=== PATIENT | male | born 1935 | race Caucasian/White ===

== ENCOUNTER 2019-09-25 08:27 | Emergency (ER) | payer MEDICARE, SELFPAY ==
[2019-09-25 08:34] VITALS: BP 130/75; PULSE 96; RESP 15; TEMP 36.6; O2SAT 95
--- NOTE | 2019-09-25 08:40 | ED.WOUNDLAC ---
HPI - Wound/Laceration General Chief Complaint: Wound/Laceration <John Flynn PA-C - Last Filed: 09/25/19 08:42> Stated Complaint: Needle broke off in Buttock <John Flynn PA-C - Last Filed: 09/25/19 08:42> Time Seen by Provider: 09/25/19 08:29 <John Flynn PA-C - Last Filed: 09/25/19 08:42> Source: patient and family <John Flynn PA-C - Last Filed: 09/25/19 08:42> Mode of arrival: ambulatory <John Flynn PA-C - Last Filed: 09/25/19 08:42> Limitations: no limitations <John Flynn PA-C - Last Filed: 09/25/19 08:42> History of Present Illness HPI narrative: Patient is an 84-year-old male who presents to emergency department for evaluation of concern for possible needle being broke off injected his medication this morning the left buttock and noticed that the needle was gone patient did not realize it was a retractable needle which is new for him patient denies any pain or other complaints and on arrival is resting comfortably in the room in no distress presented with a syringe <John Flynn PA-C - Last Filed: 09/25/19 08:42> Related Data Allergies/Adverse Reactions: Allergies Allergy/AdvReac Type Severity Reaction Status Date / Time Penicillins Allergy Intermediate sweating Verified 09/25/19 08:37 Sulfa (Sulfonamide AdvReac Severe throat Verified 09/25/19 08:37 Antibiotics) swelling <John Flynn PA-C - Last Filed: 09/25/19 08:42> Review of Systems Review of Systems: Narrative: CONSTITUTIONAL: Denies fever, chills, or sweats. SKIN: Denies redness or swelling MUSCULOSKELETAL: Denies myalgia <John Flynn PA-C - Last Filed: 09/25/19 08:42> FOR[facility], LAT[facility] Past Medical History Medical History: Medical History Bladder cancer <John Flynn PA-C - Last Filed: 09/25/19 08:42> Surgical History Surgical History: Surgical History Cornea replaced by transplant H/O shoulder replacement r shoulder replacement History of back surgery History of cataract surgery History of knee replacement <John Flynn PA-C - Last Filed: 09/25/19 08:42> Family History Family History: Family History (Updated 02/24/16 @ 14:22 by DOCTOR UNKNOWN) Father Family history of kidney disease Other Family history of cardiovascular disease <John Flynn PA-C - Last Filed: 09/25/19 08:42> Social History Social History: Social History Smoking status: Former smoker Second hand tobacco smoke exposure: No Smoking end date: 08/22/94 Alcohol intake: never Gender identity (if verbalized by the patient): Male <John Flynn PA-C - Last Filed: 09/25/19 08:42> Exam Narrative: Exam Narrative: GENERAL: Well-appearing, well-nourished, and in no acute distress. HEAD: Normocephalic, atraumatic. EYES: PERRLA and EOMI. ENT: Nares clear, no rhinorrhea or epistaxis. Mucous membranes moist. EXTREMITIES: Normal range of motion. No edema. SKIN: Warm, dry, no rash. NEURO: No focal deficits. Alert and oriented x3. PSYCH: Normal mood and affect. <MICHAEL Arreguin Last Filed: 09/25/19 08:42> Course Course Emergency Course: Patient in the room in no distress aware of case findings treatment plan and diagnosis <John Flynn PA-C - Last Filed: 09/25/19 08:42> Vital Signs Vital signs: Vital Signs Temperature 36.6 C 09/25/19 08:34 Pulse Rate 96 09/25/19 08:34 Respiratory Rate 15 09/25/19 08:34 Blood Pressure 130/75 09/25/19 08:34 Pulse Oximetry 95 09/25/19 08:34 Temperature 36.6 C 09/25/19 08:34 Pulse Rate 96 09/25/19 08:34 Respiratory Rate 15 09/25/19 08:34 Blood Pressure 130/75 09/25/19 08:34 Pulse Oximetry 95 09/25/19 08:34 <John Flynn PA-C - Last Filed: 09/25/19 08:42>
== END 2019-09-25 08:53 | disposition home or self-care (01) ==
LOC: ANHED 08:47
PROVIDERS: Emergency Provider Emergency Medicine; PCP Internal Medicine
DX: Z03.89 Encounter for observation for other suspected diseases and conditions ruled out (principal)
CPT/HCPCS: 99281

== ENCOUNTER 2019-12-31 08:45 | Emergency (ER) | payer MEDICARE, SELFPAY ==
[2019-12-31] VITALS (8 sets, daily range): BP systolic 115–132; BP diastolic 73–77; PULSE 70–90; RESP 12–15; TEMP 36.6; O2SAT 99–100
--- NOTE | ~2019-12-31 | CT_ITS ---
EXAMINATION: CT brain wo con DATE: 12/31/2019 10:03 INDICATION: Dizziness. Syncope. TECHNIQUE: Computed tomography (CT) of the head was performed without intravenous contrast. The mA wa s adjusted according to patient size. Iterative reconstruction technique was employed. The dose-lengt h product was 605.33 mGy-cm. COMPARISON: Head CT 07/15/2018 FINDINGS: There is chronic encephalomalacia at the anteroinferior aspect of right frontal lobe. There is no intracranial hemorrhage, acute infarction, or abnormal intracranial mass lesion. The ventricle s are normal in size. There are likely changes of ocular lens replacement surgeries. The mastoid air cells are normal. The paranasal sinuses are clear. IMPRESSION: 1. Chronic encephalomalacia at the anteroinferior aspect of right frontal lobe. Reviewed, dictated and finalized at location A.
--- NOTE | 2019-12-31 08:57 | ECG_ITS ---
Measurements Intervals [place] Rate: 92 P: 27 MI: 164 QRS: 76 QRSD: 101 T: -2 QT: 331 QTc: 411 Interpretive Statements SINUS RHYTHM BORDERLINE ST-T WAVE ABNORMALITY- INFERIOR LEADS BASELINE WANDER- V4 BORDERLINE ECG Electronically Signed On 12-31-2019 9:43:34 CDT by Camilo Zambrano D.O.
[2019-12-31 09:04] LABS: Basophils Absolute Auto 0.1 K/mm3 (0.0-0.1); Basophils Percent Auto 0.6 % (0.2-1.2); Eosinophils Absolute Auto 0.2 K/mm3 (0-0.3); Eosinophils Percent Auto 1.4 % (0-4.4); Hematocrit 52.9 % (42.0-52.0); Hemoglobin 18.2 g/dL (14.0-18.0); Immature Granulocyte Absolute 0.06 K/mm3 (0.00-0.031); Immature Granulocyte Percent A 0.5 % (0-0.5); Lymphocytes Absolute Auto 5.98 K/mm3 (0.9-3.2); Lymphocytes Percent Auto 51.9 % (18.3-44.2); Mean Corpuscular HGB Conc 34.4 g/dl (32-36); Mean Corpuscular Hemoglobin 33.6 pg (26-34); Mean Corpuscular Volume 97.8 fl (80-100); Monocytes Absolute Auto 1.1 K/mm3 (0.1-0.6); Monocytes Percent Auto 9.1 % (2.6-8.5); Neutrophils Absolute Auto 4.2 K/mm3 (1.3-6.7); Neutrophils Percent Auto 36.5 % (45.5-73.1); Platelet Count Result 154 k/mm3 (150-375); Red Blood Count 5.41 M/mm3 (4.6-6.20); Red Cell Distribution Width 13.3 % (11.5-14.5); White Blood Count 11.5 K/mm3 (4.5-10.0)
[2019-12-31 09:16] LABS: Blood Urea Nitrogen 13 mg/dL (9-20); Calcium 9.1 mg/dL (8.4-10.2); Carbon Dioxide 30 mmol/L (22-30); Chloride 100 mmol/L (98-107); Estimated CRCL calculation 47 ml/min; Estimated Glomerular Filt Rate > 60; Glucose 110 mg/dL (75-110); Potassium 4.1 mmol/L (3.4-5.0); Sodium 135 mmol/L (137-145)
--- NOTE | 2019-12-31 09:45 | ED.SYNCOPE ---
HPI - Syncope General Chief Complaint: Syncope Stated Complaint: lightheaded Time Seen by Provider: 12/31/19 08:58 History of Present Illness HPI narrative: Patient presents with his for a falling out episode this morning in the greenhouse. He was raising his arms up to water the plants up high, when he felt like he was drunk, and his knees buckled under him. He fell into some plants, but did not lose consciousness. He has no injuries. His was not present at the time. This is been happening several times in a month. He seen his Dr. Cummings, without coming to a conclusion. He also says he feels like this when he first sits up in bed in the morning. He is retired and does not smoke drink or do drugs. 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 Recently his blood pressure medicine was cut in half, without improvement in his symptoms. MD complaint: felt faint and collapsed Onset (ago): hour(s) -: second(s) Prodromal symptoms: other ([place] drunk) Witnessed: No Context: during exertion Injuries sustained associated with event: none Current symptoms: none History: previous syncopal episode Treatments prior to arrival: none Related Data Home Medications Medication Instructions Recorded Confirmed testosterone cypionate 200 mg/mL 100 mg IM .q2w ml 11/19/19 12/05/19 intramuscular oil ferrous sulfate 12/31/19 lorazepam PRN 12/31/19 spironolactone 12/31/19 Allergies Allergy/AdvReac Type Severity Reaction Status Date / Time Penicillins Allergy Intermediate sweating Verified 12/05/19 14:33 Sulfa (Sulfonamide AdvReac Severe throat Verified 12/05/19 14:33 Antibiotics) swelling Review of Systems Review of Systems: Narrative: CONSTITUTIONAL: Denies fever, chills, or sweats. EYES: Denies visual changes, redness, or discharge. He has cataract replacement in both eyes and is partially blind in the right. ENT: Denies rhinorrhea, congestion, sore throat, or otalgia. CARDIOVASCULAR: Denies chest pain, palpitations, or edema. RESPIRATORY: Denies cough or dyspnea. GASTROINTESTINAL: Denies abdominal pain, nausea, vomiting, or diarrhea. GENITOURINARY: Denies dysuria or hematuria. SKIN: Denies rash or itching. MUSCULOSKELETAL: Denies back pain, joint pain, or myalgia. He has some soreness on the right side of his neck sometimes. NEUROLOGIC: Denies headache, numbness, or weakness. PSYCHIATRIC: Denies anxiety or depression. PMFSH Surgical History Surgical History Cornea replaced by transplant H/O shoulder replacement r shoulder replacement History of back surgery History of cataract surgery History of knee replacement Family History Family History (Updated 02/24/16 @ 14:22 by DOCTOR UNKNOWN) Father Family history of kidney disease Other Family history of cardiovascular disease Social History Social History Smoking status: Former smoker Second hand tobacco smoke exposure: No Smoking end date: 08/22/94 Alcohol intake: never Gender identity (if verbalized by the patient): Male Exam Narrative: Exam Narrative: GENERAL: Well-appearing, well-nourished, and in no acute distress. Truncal obesity, short stature. HEAD: Normocephalic, atraumatic. EYES: PERRLA Right eye closes intermittently, and deviates laterally. ENT: Nares clear, no rhinorrhea or epistaxis. Mucous membranes moist. NECK: Supple. No tenderness on either side of the neck, or masses. CHEST: Clear to auscultation. No respiratory distress. HEART: Regular rate and rhythm. No murmur heard. Normal peripheral pulses. ABDOMEN: Soft, nontender, nondistended, normal active bowel sounds. EXTREMITIES: Normal range of motion. No edema. SKIN: Warm, dry, no rash. NEURO: No focal deficits. Alert and oriented x3. PSYCH: Normal mood and affect. Const: General: no acute distress and alert Orientation/consciousness: pa
[2019-12-31] MEDS: SODIUM CHLORIDE 0.9% IV 1,000 ML 999 ML IV CONT (10:08)
[2019-12-31 10:18] LABS: NT Pro B Type Natriuretic Pept 132 PG/ML (5-100)
[2019-12-31 11:25] LABS: Hematocrit 49.2 % (42.0-52.0); Hemoglobin 16.8 g/dL (14.0-18.0)
== END 2019-12-31 14:05 | disposition home or self-care (01) ==
PROVIDERS: Emergency Provider Emergency Medicine; PCP Internal Medicine
DX: D75.1 Secondary polycythemia (principal); G93.89 Other specified disorders of brain; E86.0 Dehydration; Z94.7 Corneal transplant status; Z96.611 Presence of right artificial shoulder joint; Z98.49 Cataract extraction status, unspecified eye; Z96.659 Presence of unspecified artificial knee joint; Z87.891 Personal history of nicotine dependence
CPT/HCPCS: 36415; 70450; 80048; 83880; 85014; 85018; 85025; 93005; 96360; 99284; J7030

== ENCOUNTER 2022-03-12 12:28 | Emergency (ER) | payer MEDICARE, SELFPAY ==
[2022-03-12 12:43] VITALS: BP 134/84; PULSE 94; RESP 18; TEMP 37; O2SAT 97
--- NOTE | 2022-03-12 12:53 | ED.SKABFB ---
HPI - Skin/Abscess/Foreign Bdy General Chief complaint: Skin/Abscess/Foreign Body Stated complaint: rash Time Seen by Provider: 03/12/22 12:53 Source: patient, RN notes reviewed and old records reviewed Mode of arrival: ambulatory Limitations: no limitations History of Present Illness HPI narrative: 86-year-old male presents to the [facility] with complaints of a rash. Patient states he has been following up with his primary care provider and has been treated for fungal infections for the last 7 weeks. reports increased redness to the dorsal aspect of the foot that travels up the leg that has been getting worse over the last week. +1 pedal pulse. Delayed capillary refill. States the rash started about 7 weeks ago. Had tried seeing dermatology and primary care provider. Onset (ago): week(s) (7/ worse 1 week ) Related Data Home Medications Medication Instructions Recorded Confirmed testosterone cypionate 200 mg/mL 100 mg IM .q2w 11/19/19 03/12/22 intramuscular oil prednisolone acetate 1 % eye 1 drop ophthalmic (eye) Q12H 01/21/20 03/12/22 drops,suspension (Pred Forte) lifitegrast 5 % eye drops in a 1 drop ophthalmic (eye) BID 02/13/20 03/12/22 dropperette (Xiidra) cholecalciferol (vitamin D3) 125 125 mcg PO DAILY 04/14/20 03/12/22 mcg (5,000 unit) capsule albuterol sulfate 2.5 mg/3 mL 2.5 mg DIRECTED 03/12/22 03/12/22 (0.083 %) solution for nebulization albuterol sulfate 90 mcg/actuation 90 mcg inhalation DIRECTED 03/12/22 03/12/22 aerosol inhaler budesonide 160 mcg-glycopyr 9 2 inh inhalation BID 03/12/22 03/12/22 mcg-formot 4.8 mcg/actuation HFA inhaler (Breztri Aerosphere) fluconazole 200 mg tablet 200 mg BID 03/12/22 03/12/22 fluticasone 250 mcg-salmeterol 50 1 inh inhalation Q12H 03/12/22 03/12/22 mcg/dose blistr powdr for inhalation (Advair Diskus) omeprazole 40 mg capsule,delayed 40 mg PO DAILY 03/12/22 03/12/22 release Allergies Allergy/AdvReac Type Severity Reaction Status Date / Time Penicillins Allergy Intermediate sweating Verified 03/12/22 13:07 Sulfa (Sulfonamide AdvReac Severe throat Verified 03/12/22 13:07 Antibiotics) swelling Review of Systems Review of Systems: All systems reviewed & are unremarkable except as noted in HPI and below Constitutional: Constitutional: Reports no additional constitutional complaints, Denies chills and Denies fever(s) Eyes: Eyes: Reports no additional eye complaints ENT: Reports system reviewed and no additional complaints, except as documented Cardiovascular: Cardiovascular: Reports no additional cardiovascular complaints Respiratory: Respiratory: Reports no additional respiratory complaints Gastrointestinal: Gastrointestinal: Reports no additional gastrointestinal complaints Musculoskeletal: Musculoskeletal: Reports no additional musculoskeletal complaints Integumentary/Breasts: Skin/Breast: Reports as per HPI and Reports erythema Neurologic: Reports system reviewed and no additional complaints, except as documented Psychiatric: Psychiatric: Reports no additional psychiatric complaints Allergic/Immunologic: Allergic/Immunologic: Reports no additional allergic/immunologic complaints PMFSH Past Medical History Medical History Benign positional vertigo Bladder cancer Surgical History Surgical History Cornea replaced by transplant H/O shoulder replacement r shoulder replacement History of back surgery History of cataract surgery History of knee replacement Family History Family History Father Family history of kidney disease Other Family history of cardiovascular disease Social History Social History Smoking status: Former smoker Second hand tobacco smoke exposure: No Smoking end
== END 2022-03-12 13:04 | disposition short-term general hospital (02) ==
PROVIDERS: Emergency Provider Nurse Practitioner; PCP Internal Medicine
DX: L03.116 Cellulitis of left lower limb (principal); Z87.891 Personal history of nicotine dependence; Z85.51 Personal history of malignant neoplasm of bladder; Z94.7 Corneal transplant status; Z96.611 Presence of right artificial shoulder joint; Z96.659 Presence of unspecified artificial knee joint
CPT/HCPCS: 99212; G0463

== ENCOUNTER 2022-12-13 15:50 | Emergency (ER) | payer MEDICARE, SELFPAY ==
[2022-12-13 16:11] VITALS: BP 125/67; PULSE 99; RESP 18; TEMP 36.6; O2SAT 95
--- NOTE | 2022-12-13 16:14 | ED.EYEPROB ---
HPI - Eye Problem General Chief complaint: Eye Problems Stated complaint: rt eye irritation Time Seen by Provider: 12/13/22 16:14 Source: patient Mode of arrival: ambulatory Limitations: no limitations History of Present Illness HPI Narrative: 87 y/o male presented for c/o right eye irritation, onset today. Patient is blind in the right eye but is able to see motion. States today he felt mild pain and like something was in the eye, unsure if something entered the eye while he was working outside. Has noticed crust and drainage today. Patient follows with eye doctor for history of corneal transplants. MD chief complaint: eye pain Related Data Home Medications Medication Instructions Recorded Confirmed testosterone cypionate 200 mg/mL 100 mg IM .q2w 11/19/19 03/12/22 intramuscular oil prednisolone acetate 1 % eye 1 drop ophthalmic (eye) Q12H 01/21/20 03/12/22 drops,suspension (Pred Forte) lifitegrast 5 % eye drops in a 1 drop ophthalmic (eye) BID 02/13/20 03/12/22 dropperette (Xiidra) cholecalciferol (vitamin D3) 125 125 mcg PO DAILY 04/14/20 03/12/22 mcg (5,000 unit) capsule albuterol sulfate 2.5 mg/3 mL 2.5 mg DIRECTED 03/12/22 03/12/22 (0.083 %) solution for nebulization albuterol sulfate 90 mcg/actuation 90 mcg inhalation DIRECTED 03/12/22 03/12/22 aerosol inhaler budesonide 160 mcg-glycopyr 9 2 inh inhalation BID 03/12/22 03/12/22 mcg-formot 4.8 mcg/actuation HFA inhaler (Breztri Aerosphere) fluconazole 200 mg tablet 200 mg BID 03/12/22 03/12/22 fluticasone 250 mcg-salmeterol 50 1 inh inhalation Q12H 03/12/22 03/12/22 mcg/dose blistr powdr for inhalation (Advair Diskus) omeprazole 40 mg capsule,delayed 40 mg PO DAILY 03/12/22 03/12/22 release Allergies Allergy/AdvReac Type Severity Reaction Status Date / Time Penicillins Allergy Intermediate sweating Verified 12/13/22 16:09 Sulfa (Sulfonamide AdvReac Severe throat Verified 12/13/22 16:09 Antibiotics) swelling Review of Systems Review of Systems: CONSTITUTIONAL: Denies body aches, fever, chills EYES:Endorses redness and drainage right eye; FB sensation, Denies photophobia, visual changes ENT: Denies rhinorrhea, congestion, sore throat, or otalgia. CARDIOVASCULAR: Denies chest pain, palpitations RESPIRATORY: Denies cough or dyspnea. GASTROINTESTINAL: Denies abdominal pain, nausea, vomiting, or diarrhea. SKIN: Denies rash, itching, or wounds. MUSCULOSKELETAL: Denies back pain, joint pain, or myalgia. NEUROLOGIC: Denies headache, numbness, tingling, or weakness. 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 Hypothyroidism (acquired) Nonrheumatic aortic valve stenosis Surgical History Surgical History Cornea replaced by transplant H/O shoulder replacement r shoulder replacement History of back surgery History of cataract surgery History of knee replacement Family History Family History Father Family history of kidney disease Other Family history of cardiovascular disease Social History Social History Smoking status: Former smoker Second hand tobacco smoke exposure: No Smoking end date: 08/22/94 Alcohol intake: never Gender identity (if verbalized by the patient): Male Comments At time of signature, I have reviewed and agree with nursing past medical, surgical, social and family history unless otherwise noted. Please see nursing chart for further information. There is no relevant family history pertinent to the presenting complaint Exam
--- NOTE | 2022-12-13 16:26 | PC.NURSE ---
RADIOACTIVITY TECHNICIAN performing wood's lamp exam.
== END 2022-12-13 16:50 | disposition home or self-care (01) ==
PROVIDERS: Emergency Provider Nurse Practitioner Family
DX: H10.9 Unspecified conjunctivitis (principal); Z87.891 Personal history of nicotine dependence; J44.9 Chronic obstructive pulmonary disease, unspecified; I11.9 Hypertensive heart disease without heart failure; E03.9 Hypothyroidism, unspecified; H54.40 Blindness, one eye, unspecified eye; Z85.51 Personal history of malignant neoplasm of bladder; Z94.7 Corneal transplant status; Z96.611 Presence of right artificial shoulder joint
CPT/HCPCS: 99213; G0463

== ENCOUNTER 2022-12-27 14:10 | Emergency (ER) | payer MEDICARE, SELFPAY ==
--- NOTE | ~2022-12-27 | XR_ITS ---
XR abdomen/kub 1V 12/27/2022 14:40 Indication: Constipation Procedure: KUB Comparison: 09/22/2016 Findings: Bowel gas pattern is nonobstructive. Moderate colonic fecal loading. There are cholecystect chris clips. There is dextroscoliosis of the lumbar spine. There is a right renal stone at the lower po le. Lung bases are unremarkable. Impression: 1: Nonobstructive bowel gas pattern with moderate colonic fecal loading. 2: Right nephrolithiasis. Reviewed, dictated and finalized at location B. Impression: 1: Nonobstructive bowel gas pattern with moderate colonic fecal loading. 2: Right nephrolithiasis.
--- NOTE | 2022-12-27 14:16 | ED.GENADULT ---
HPI - General Adult General Chief complaint: Abdominal Pain Stated complaint: constipation Time Seen by Provider: 12/27/22 14:55 Mode of arrival: ambulatory Limitations: no limitations History of Present Illness HPI narrative: 87-year-old male presents with concern for constipation. Reports he has not had a bowel movement 5 days. He denies any change in his diet or new medications. His reports he does not eat much and typically eats fast food. Reports he tried 1 dose of MiraLax 2 days in a row without relief. He denies vomiting, abdominal pain. MD complaint: Constipation Related Data Home Medications Medication Instructions Recorded Confirmed testosterone cypionate 200 mg/mL 100 mg IM .q2w 11/19/19 12/27/22 intramuscular oil prednisolone acetate 1 % eye 1 drop ophthalmic (eye) Q12H 01/21/20 12/27/22 drops,suspension (Pred Forte) lifitegrast 5 % eye drops in a 1 drop ophthalmic (eye) BID 02/13/20 12/27/22 dropperette (Xiidra) cholecalciferol (vitamin D3) 125 125 mcg PO DAILY 04/14/20 12/27/22 mcg (5,000 unit) capsule albuterol sulfate 2.5 mg/3 mL 2.5 mg DIRECTED 03/12/22 12/27/22 (0.083 %) solution for nebulization albuterol sulfate 90 mcg/actuation 90 mcg inhalation DIRECTED 03/12/22 12/27/22 aerosol inhaler budesonide 160 mcg-glycopyr 9 2 inh inhalation BID 03/12/22 12/27/22 mcg-formot 4.8 mcg/actuation HFA inhaler (Breztri Aerosphere) fluconazole 200 mg tablet 200 mg BID 03/12/22 12/27/22 fluticasone 250 mcg-salmeterol 50 1 inh inhalation Q12H 03/12/22 12/27/22 mcg/dose blistr powdr for inhalation (Advair Diskus) omeprazole 40 mg capsule,delayed 40 mg PO DAILY 03/12/22 12/27/22 release Allergies Allergy/AdvReac Type Severity Reaction Status Date / Time Penicillins Allergy Intermediate sweating Verified 12/27/22 14:33 Sulfa (Sulfonamide AdvReac Severe throat Verified 12/27/22 14:33 Antibiotics) swelling Review of Systems Review of Systems: CONSTITUTIONAL: Denies malaise, chills, sweats, or fever. CARDIOVASCULAR: Denies chest pain, palpitations, or edema. RESPIRATORY: Denies cough or dyspnea. GASTROINTESTINAL: Denies abdominal pain, nausea, vomiting, diarrhea, bloody, or mucous stools. Reports constipation GENITOURINARY: Denies dysuria or hematuria. MUSCULOSKELETAL: Denies myalgia. 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 Hypothyroidism (acquired) Nonrheumatic aortic valve stenosis Surgical History Surgical History Cornea replaced by transplant H/O shoulder replacement r shoulder replacement History of back surgery History of cataract surgery History of knee replacement Family History Family History Father Family history of kidney disease Other Family history of cardiovascular disease Social History Social History Smoking status: Former smoker Second hand tobacco smoke exposure: No Smoking end date: 08/22/94 Alcohol intake: never Gender identity (if verbalized by the patient): Male Comments At time of signature, agree with nursing past medical, surgical, social and family history. There is no relevant family history pertinent to the presenting complaint Exam Narrative: GENERAL: Well-appearing, well-nourished, and in no acute distress. HEAD: Normocephalic EYES: PERRLA, sclera clear ENT: Nares clear. Mucous membranes moist. NECK: Supple. CHEST: No respiratory distress. Clear to auscultation. No bony deformities, no asymmetry. Speaks in full sentences. HEART: Regu
[2022-12-27 14:25] VITALS: BP 128/71; PULSE 96; RESP 18; TEMP 36.7; O2SAT 95
== END 2022-12-27 15:06 | disposition home or self-care (01) ==
PROVIDERS: Emergency Provider Nurse Practitioner; PCP Internal Medicine
DX: K59.00 Constipation, unspecified (principal); Z87.891 Personal history of nicotine dependence; J44.9 Chronic obstructive pulmonary disease, unspecified; I11.9 Hypertensive heart disease without heart failure; E03.9 Hypothyroidism, unspecified; I35.0 Nonrheumatic aortic (valve) stenosis; H54.40 Blindness, one eye, unspecified eye; Z94.7 Corneal transplant status; Z96.611 Presence of right artificial shoulder joint
CPT/HCPCS: 74018; 99213; G0463

== ENCOUNTER 2023-01-13 13:27 | Emergency (ER) | payer MEDICARE, SELFPAY ==
[2023-01-13 13:36] VITALS: BP 123/67; PULSE 90; RESP 18; TEMP 37; O2SAT 95
--- NOTE | 2023-01-13 13:41 | ED.MALEGU ---
HPI - Male Genitourinary General Chief complaint: Urogenital-Male Stated complaint: Male Urogenital Time Seen by Provider: 01/13/23 13:44 Source: patient and RN notes reviewed Mode of arrival: ambulatory Limitations: no limitations History of Present Illness HPI Narrative: 87-year-old male presents concern for urinary tract infection. Reports burning with urination. He reports he gets injections in his spine and 1 of the side effects could be urinary tract infection. He denies fever, aches, chills, sweats. He denies new back pain or abdominal pain MD Complaint: dysuria Related Data Home Medications Medication Instructions Recorded Confirmed testosterone cypionate 200 mg/mL 100 mg IM .q2w 11/19/19 01/13/23 intramuscular oil prednisolone acetate 1 % eye 1 drop ophthalmic (eye) Q12H 01/21/20 01/13/23 drops,suspension (Pred Forte) lifitegrast 5 % eye drops in a 1 drop ophthalmic (eye) BID 02/13/20 01/13/23 dropperette (Xiidra) cholecalciferol (vitamin D3) 125 125 mcg PO DAILY 04/14/20 01/13/23 mcg (5,000 unit) capsule albuterol sulfate 2.5 mg/3 mL 2.5 mg DIRECTED 03/12/22 01/13/23 (0.083 %) solution for nebulization albuterol sulfate 90 mcg/actuation 90 mcg inhalation DIRECTED 03/12/22 01/13/23 aerosol inhaler budesonide 160 mcg-glycopyr 9 2 inh inhalation BID 03/12/22 01/13/23 mcg-formot 4.8 mcg/actuation HFA inhaler (Breztri Aerosphere) fluticasone 250 mcg-salmeterol 50 1 inh inhalation Q12H 03/12/22 01/13/23 mcg/dose blistr powdr for inhalation (Advair Diskus) omeprazole 40 mg capsule,delayed 40 mg PO DAILY 03/12/22 01/13/23 release furosemide 40 mg tablet 40 mg PO DAILY 01/13/23 01/13/23 gabapentin 100 mg capsule 300 mg PO DAILY 01/13/23 01/13/23 hydralazine 25 mg tablet 25 mg PO DAILY 01/13/23 01/13/23 Allergies Allergy/AdvReac Type Severity Reaction Status Date / Time Penicillins Allergy Intermediate sweating Verified 01/13/23 13:48 Sulfa (Sulfonamide AdvReac Severe throat Verified 01/13/23 13:48 Antibiotics) swelling Review of Systems Review of Systems: CONSTITUTIONAL: Denies malaise, chills, sweats, or fever. CARDIOVASCULAR: Denies chest pain, palpitations, or edema. RESPIRATORY: Denies cough or dyspnea. GASTROINTESTINAL: Denies abdominal pain, nausea, vomiting, diarrhea GENITOURINARY: Reports dysuria. Denies frequency, urgency, suprapubic pressure. Denies flank pain or hematuria. SKIN: Denies rash or itching. MUSCULOSKELETAL: Denies back pain or myalgia. 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 Hypothyroidism (acquired) Nonrheumatic aortic valve stenosis Surgical History Surgical History Cornea replaced by transplant H/O shoulder replacement r shoulder replacement History of back surgery History of cataract surgery History of knee replacement Family History Family History Father Family history of kidney disease Other Family history of cardiovascular disease Social History Social History Smoking status: Former smoker Second hand tobacco smoke exposure: No Smoking end date: 08/22/94 Alcohol intake: never Gender identity (if verbalized by the patient): Male Comments At time of signature, agree with nursing past medical, surgical, social and family history. There is no relevant family history pertinent to the presenting complaint Exam Narrative: GENERAL: Well-appearing, well-nourished, and in no acute distress. HEAD: Normocephalic. EYES: PERRLA, conjunctivae clear. N
== END 2023-01-13 14:00 | disposition home or self-care (01) ==
PROVIDERS: Emergency Provider Nurse Practitioner; PCP Internal Medicine
DX: N39.0 Urinary tract infection, site not specified (principal); B96.20 Unspecified Escherichia coli [E. coli] as the cause of diseases classified elsewhere; J44.9 Chronic obstructive pulmonary disease, unspecified; I10 Essential (primary) hypertension; E03.9 Hypothyroidism, unspecified; I35.0 Nonrheumatic aortic (valve) stenosis; H54.40 Blindness, one eye, unspecified eye; Z85.51 Personal history of malignant neoplasm of bladder; Z94.7 Corneal transplant status; Z96.611 Presence of right artificial shoulder joint; Z87.891 Personal history of nicotine dependence
CPT/HCPCS: 81003; 87077; 87086; 87186; 99213; G0463

== ENCOUNTER 2023-01-27 14:21 | Emergency (ER) | payer MEDICARE, SELFPAY ==
[2023-01-27 14:45] VITALS: BP 130/71; PULSE 93; RESP 18; TEMP 36.4; O2SAT 98
--- NOTE | 2023-01-27 14:59 | ED.MALEGU ---
HPI - Male Genitourinary General Chief complaint: Urogenital-Male Stated complaint: uti symptoms Time Seen by Provider: 01/27/23 14:59 Source: patient Mode of arrival: ambulatory Limitations: no limitations History of Present Illness HPI Narrative: 87-year-old male presents with complaint of urinary frequency, burning for the past 3 days. Patient reports recent urinary tract infection. States the antibiotic that they gave be the 1st time was not the right 1 in the neck called me back in change that . He states after taking this antibiotic his symptoms did resolve. Patient reports a recent steroid injection into his back. States he was told after getting steroid injections in your back your more prone to getting urinary tract infections. Denies fever chills. Denies nausea vomiting diarrhea. No back or abdominal pain. Patient is well-appearing and talkative. Ambulatory with steady gait. All systems reviewed and negative except as noted above. Related Data Home Medications Medication Instructions Recorded Confirmed testosterone cypionate 200 mg/mL 100 mg IM .q2w 11/19/19 01/27/23 intramuscular oil prednisolone acetate 1 % eye 1 drop ophthalmic (eye) Q12H 01/21/20 01/27/23 drops,suspension (Pred Forte) lifitegrast 5 % eye drops in a 1 drop ophthalmic (eye) BID 02/13/20 01/27/23 dropperette (Xiidra) cholecalciferol (vitamin D3) 125 125 mcg PO DAILY 04/14/20 01/27/23 mcg (5,000 unit) capsule albuterol sulfate 2.5 mg/3 mL 2.5 mg DIRECTED 03/12/22 01/27/23 (0.083 %) solution for nebulization albuterol sulfate 90 mcg/actuation 90 mcg inhalation DIRECTED 03/12/22 01/27/23 aerosol inhaler budesonide 160 mcg-glycopyr 9 2 inh inhalation BID 03/12/22 01/27/23 mcg-formot 4.8 mcg/actuation HFA inhaler (Breztri Aerosphere) fluticasone 250 mcg-salmeterol 50 1 inh inhalation Q12H 03/12/22 01/27/23 mcg/dose blistr powdr for inhalation (Advair Diskus) omeprazole 40 mg capsule,delayed 40 mg PO DAILY 03/12/22 01/27/23 release furosemide 40 mg tablet 40 mg PO DAILY 01/13/23 01/27/23 gabapentin 100 mg capsule 300 mg PO DAILY 01/13/23 01/27/23 hydralazine 25 mg tablet 25 mg PO DAILY 01/13/23 01/27/23 Allergies Allergy/AdvReac Type Severity Reaction Status Date / Time Penicillins Allergy Intermediate sweating Verified 01/27/23 14:46 Sulfa (Sulfonamide AdvReac Severe throat Verified 01/27/23 14:46 Antibiotics) swelling Review of Systems Review of Systems: CONSTITUTIONAL: Denies fever, chills, or sweats. EYES: Denies visual changes, redness, or discharge. ENT: Denies rhinorrhea, congestion, sore throat, or otalgia. CARDIOVASCULAR: Denies chest pain, palpitations, or edema. RESPIRATORY: Denies cough or dyspnea. GASTROINTESTINAL: Denies abdominal pain, nausea, vomiting, or diarrhea. GENITOURINARY: Reports dysuria, frequency. Denies hematuria. SKIN: Denies rash or itching. MUSCULOSKELETAL: Denies back pain, joint pain, or myalgia. NEUROLOGIC: Denies headache, numbness, or weakness. PSYCHIATRIC: Denies anxiety or depression. All other systems reviewed are negative, except as documented in HPI. 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
== END 2023-01-27 15:08 | disposition home or self-care (01) ==
PROVIDERS: Emergency Provider Nurse Practitioner Family; PCP Internal Medicine
DX: N39.0 Urinary tract infection, site not specified (principal); Z87.891 Personal history of nicotine dependence; J44.9 Chronic obstructive pulmonary disease, unspecified; I11.9 Hypertensive heart disease without heart failure; E03.9 Hypothyroidism, unspecified; I35.0 Nonrheumatic aortic (valve) stenosis; H54.40 Blindness, one eye, unspecified eye; Z85.51 Personal history of malignant neoplasm of bladder; Z94.7 Corneal transplant status; Z96.611 Presence of right artificial shoulder joint
CPT/HCPCS: 81003; 87077; 87086; 87186; 99213; G0463

== ENCOUNTER 2023-05-22 02:26 | Inpatient (IN) | payer MEDICARE, SELFPAY ==
[2023-05-22] VITALS (22 sets, daily range): BP systolic 117–146; BP diastolic 67–87; PULSE 90–115; RESP 18–23; TEMP 36.4–37.1; O2SAT 90–96; BMI 32.1
--- NOTE | ~2023-05-22 | CT_ITS ---
EXAMINATION: CT cervical spine wo con DATE: 05/22/2023 03:42 INDICATION: Head injury TECHNIQUE: Computed tomography (CT) of the cervical spine was performed without intravenous contrast. The dose-length product (DLP) was 451.58 mGy-cm. Automated exposure control and iterative reconstruc tion technique were employed. COMPARISON: None FINDINGS: There are 2 mm of retrolisthesis of C3 on C4. There is no fracture. The vertebral body heig hts are maintained. There is severe loss of intervertebral disc space height at C3-4, C5-6, and C6-7. There is multilevel severe facet and uncovertebral joint osteoarthritis. IMPRESSION: 1. Severe cervical spondylosis without acute findings. Reviewed, dictated and finalized at location F.
--- NOTE | ~2023-05-22 | CT_ITS ---
EXAMINATION: CT brain wo con INDICATION: Head injury COMPARISON: 12/31/2019 TECHNIQUE: Standard unenhanced head CT. The dose-length product (DLP) was 681.00 mGy-cm. The mA was a djusted according to patient size. Iterative reconstruction technique was employed. FINDINGS: No acute intraparenchymal hemorrhage. No evidence of mass lesion. No evidence of acute infa rction. Again noted is an area of chronic encephalomalacia in the anterior/inferior aspect of the rig ht frontal lobe, consistent with prior infarct. There is mild periventricular and subcortical hypoden sity probably related to small vessel ischemic disease. There is mild prominence of the sulci and quinton tricles related to cerebral atrophy. Intracranial calcified cerebral atherosclerosis is noted. No ext ra-axial collections. No mass effect or midline shift. Changes in the globes are likely from ocular l ens surgery. There is mild mucosal thickening of the paranasal sinuses. IMPRESSION: 1. No acute intracranial abnormality. 2. Age related findings. Reviewed, dictated and finalized at location F.
--- NOTE | ~2023-05-22 | XR_ITS ---
EXAMINATION: XR surgery orthopedic DATE: 05/23/2023 16:00 CDT INDICATION: LEFT HIP PINNING . TECHNIQUE: 3 fluoroscopic images of the left hip were obtained during left hip pinning performed by erik shipley surgeon. I was not present in the operating room. Fluoroscopy exposure time was 131 seconds. Air K agustina 36.07 mGy. DAP [id number] mGym2. COMPARISON: X-ray hip 05/22/2023 FINDINGS: Cannulated screws fix the left femoral head into near-anatomic alignment. No unexpected radiopaque fo reign body. IMPRESSION: Fluoroscopic documentation of left hip pinning. Please refer to the operative note for complete proce dural details . Reviewed, dictated and finalized at location K. IMPRESSION: Fluoroscopic documentation of left hip pinning. Please refer to the operative n ote for complete procedural details .
--- NOTE | ~2023-05-22 | XR_ITS ---
EXAMINATION: XR chest 1V portable Exam Date/Time: 05/25/2023 13:10 CDT HISTORY: dyspnea Comparison: . RESULT: Lines, tubes, and devices: Partially visualized uncomplicated appearing right shoulder arthroplasty. Cholecystectomy clips. Lungs and pleura: Moderate diffuse interstitial opacities. Segmental right basilar opacities. Right costophrenic angle blunting. Cardiomediastinal silhouette: Stable. Other: No acute osseous or upper abdominal finding. IMPRESSION: Moderate interstitial edema. Small right pleural effusion. Bibasilar atelectasis/consolidation. Reviewed, dictated and finalized at location K. IMPRESSION: Moderate interstitial edema. Small right pleural effusion. Bibasilar atelectasi s/consolidation.
--- NOTE | ~2023-05-22 | XR_ITS ---
EXAMINATION: XR hip LT min 3V w AP pelvis INDICATION: Left hip pain, initial encounter TECHNIQUE: AP view of the pelvis COMPARISON: 10/19/2012 FINDINGS: There is an acute, traumatic, closed subcapital fracture of the left femoral neck. The femo ral heads are well-seated in their acetabula. No additional fracture is identified. The soft tissues are unremarkable. IMPRESSION: 1. Acute subcapital left femoral neck fracture. Reviewed, dictated and finalized at location F.
--- NOTE | ~2023-05-22 | XR_ITS ---
EXAMINATION: XR shoulder LT min 2V INDICATION: Left shoulder pain TECHNIQUE: Four views of the left shoulder are submitted. COMPARISON: None FINDINGS: Bone alignment is normal. There is a subtle heterotopic osseous fragment at the inferior ma rgin of the glenoid. There is moderate osteoarthritis of the glenohumeral and acromioclavicular joint s. Soft tissues are unremarkable. IMPRESSION: 1. Possible small fracture along the inferior margin of the glenoid. Reviewed, dictated and finalized at location F.
--- NOTE | 2023-05-22 03:37 | PC.NURSE ---
Patient in imaging at this time.
[2023-05-22] MEDS: ACETAMINOPHEN 500 MG TABLET 1000 MG PO (04:35)
--- NOTE | 2023-05-22 04:46 | ED.FALL ---
HPI - Fall General Chief Complaint: Fall Stated Complaint: fall, L hip pain Time Seen by Provider: 05/22/23 03:21 History of Present Illness HPI Narrative: This is an 88-year-old male, past history of COPD, hypertension who presents to the emergency department after a fall at home. The patient states he was attempting to stand from his recliner, when he tripped, landing on his left side. He believes he hit his head but did not lose consciousness. He complains of left shoulder and hip pain each rated 5-6/10 and described as dull without radiation. He denies chest pain, shortness of breath, palpitations or lightheadedness. Related Data Home Medications Medication Instructions Recorded Confirmed testosterone cypionate 200 mg/mL 100 mg IM .q2w 11/19/19 01/27/23 intramuscular oil prednisolone acetate 1 % eye 1 drop ophthalmic (eye) Q12H 01/21/20 01/27/23 drops,suspension (Pred Forte) lifitegrast 5 % eye drops in a 1 drop ophthalmic (eye) BID 02/13/20 01/27/23 dropperette (Xiidra) cholecalciferol (vitamin D3) 125 125 mcg PO DAILY 04/14/20 01/27/23 mcg (5,000 unit) capsule albuterol sulfate 2.5 mg/3 mL 2.5 mg DIRECTED 03/12/22 01/27/23 (0.083 %) solution for nebulization albuterol sulfate 90 mcg/actuation 90 mcg inhalation DIRECTED 03/12/22 01/27/23 aerosol inhaler budesonide 160 mcg-glycopyr 9 2 inh inhalation BID 03/12/22 01/27/23 mcg-formot 4.8 mcg/actuation HFA inhaler (Breztri Aerosphere) fluticasone 250 mcg-salmeterol 50 1 inh inhalation Q12H 03/12/22 01/27/23 mcg/dose blistr powdr for inhalation (Advair Diskus) omeprazole 40 mg capsule,delayed 40 mg PO DAILY 03/12/22 01/27/23 release furosemide 40 mg tablet 40 mg PO DAILY 01/13/23 01/27/23 gabapentin 100 mg capsule 300 mg PO DAILY 01/13/23 01/27/23 hydralazine 25 mg tablet 25 mg PO DAILY 01/13/23 01/27/23 Allergies Allergy/AdvReac Type Severity Reaction Status Date / Time Penicillins Allergy Intermediate sweating Verified 05/22/23 03:23 Sulfa (Sulfonamide AdvReac Severe throat Verified 05/22/23 03:23 Antibiotics) swelling Review of Systems Review of Systems: CONSTITUTIONAL: Denies fever, chills, or sweats. CARDIOVASCULAR: Denies chest pain, palpitations, or edema. RESPIRATORY: Denies cough or dyspnea. GASTROINTESTINAL: Denies abdominal pain, nausea, vomiting, or diarrhea. GENITOURINARY: Denies dysuria or hematuria. SKIN: Denies rash or itching. MUSCULOSKELETAL: Left shoulder and hip pain denies back pain, or myalgia. NEUROLOGIC: Denies headache, numbness, dizziness, or weakness. PSYCHIATRIC: Denies anxiety or depression. 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 heart disease without CHF Hypothyroidism (acquired) Nonrheumatic aortic valve stenosis Surgical History Surgical History Cornea replaced by transplant H/O shoulder replacement r shoulder replacement History of back surgery History of cataract surgery History of knee replacement Family History Family History Father Family history of kidney disease Other Family history of cardiovascular disease Social History Social History Smoking status: Former smoker Second hand tobacco smoke exposure: No Smoking end date: 08/22/94 Alcohol intake: never Gender identity (if verbalized by the patient): Male Exam Narrative: GENERAL: Well-developed, well-nourished, and in no acute distress. HEAD: Normocephalic, atraumatic. EYES: Left pupil round, 3mm and reactive to light and accommodation and EOMI. right cornea clouded ENT: Nares clear, no rhinorrhea or epistaxis. Mucous membranes moist.
[2023-05-22 08:33] LABS: Basophils Percent Auto 0.2 % (0.2-1.2); Eosinophils Absolute Auto 0.1 K/mm3 (0-0.3); Eosinophils Percent Auto 0.4 % (0-4.4); Hematocrit 50.4 % (42.0-52.0); Hemoglobin 17.2 g/dL (14.0-18.0); Immature Granulocyte Absolute 0.04 K/mm3 (0.00-0.031); Immature Granulocyte Percent A 0.3 % (0-0.5); Immature Platelet Fraction Pct 1.7 % (0.9-11.2); Lymphocytes Absolute Auto 3.34 K/mm3 (0.9-3.2); Lymphocytes Percent Auto 23.3 % (18.3-44.2); Mean Corpuscular HGB Conc 34.1 g/dl (32-36); Mean Corpuscular Hemoglobin 32.6 pg (26-34); Mean Corpuscular Volume 95.6 fl (80-100); Mean Platelet Volume 8.3 fl (7.4-10.4); Monocytes Absolute Auto 1.2 K/mm3 (0.1-0.6); Monocytes Percent Auto 8.5 % (2.6-8.5); Neutrophils Absolute Auto 9.6 K/mm3 (1.3-6.7); Neutrophils Percent Auto 67.3 % (45.5-73.1); Platelet Count Result 160 k/mm3 (150-375); Red Blood Count 5.27 M/mm3 (4.6-6.20); Red Cell Distribution Width 13.9 % (11.5-14.5); White Blood Count 14.3 K/mm3 (4.5-10.0)
--- NOTE | 2023-05-22 08:33 | ECG_ITS ---
Measurements Intervals [place] Rate: 94 P: 77 KS: 188 QRS: 23 QRSD: 94 T: 3 QT: 350 QTc: 438 Interpretive Statements SINUS RHYTHM WITH OCCASIONAL SUPRAVENTRICULAR PREMATURE COMPLEXES OTHERWISE UNREMARKABLE ECG COMPARED TO ECG 12/31/2019 08:53:20 NO SIGNIFICANT CHANGES Electronically Signed On 05-22-2023 9:30:37 CDT by Tien King M.D.
[2023-05-22 08:40] LABS: Alanine Aminotransferase 27 U/L (6-50); Alkaline Phosphatase 80 U/L (38-126); Anion Gap 8 mmol/L (8-16); Aspartate Amino Transferase 42 U/L (17-59); Bilirubin,Total 2.8 mg/dL (0.2-1.3); Blood Urea Nitrogen 17 mg/dL (9-20); Calcium 8.6 mg/dL (8.4-10.2); Carbon Dioxide 26 mmol/L (22-30); Chloride 99 mmol/L (98-107); Estimated CRCL calculation 48 ml/min; Estimated Glomerular Filt Rate > 60; Glucose 119 mg/dL (65-110); Potassium 3.6 mmol/L (3.4-5.0); Sodium 133 mmol/L (137-145)
--- NOTE | 2023-05-22 08:44 | PM.CNOR ---
Assessment and Plan Assessment and plan (1) Closed subcapital fracture of left femur: Qualifiers: Encounter type: initial encounter Qualified Code(s): S72.012A - Unspecified intracapsular fracture of left femur, initial encounter for closed fracture Code(s): S72.012A - Unspecified intracapsular fracture of left femur, initial encounter for closed fracture Status: Acute (2) Contusion of left shoulder: Qualifiers: Encounter type: initial encounter Qualified Code(s): S40.012A - Contusion of left shoulder, initial encounter Code(s): S40.012A - Contusion of left shoulder, initial encounter Status: Acute Plan Non displaced valgus impacted femoral neck fracture, and left shoulder contusion with arthritis. Subtle calcification on the left shoulder likely secondary to chronic arthritis. He is a community ambulator. The fracture is amenable to percutaneous pinning. We discussed the risks, benefits, and alternatives to surgery with the patient and his family. We reviewed the expected results and typical recovery after surgery. Will plan on rehab for 4-6 weeks. Partial weight bearing with a walker. Proceed with closed reduction, percutaneous pinning left hip. Surgery possibly tomorrow afternoon. History of Present Illness HPI Consult date: 05/22/23 Chief complaint: Left Femur Fracture Narrative: Patient complains of acute hip pain. Fell from standing height. Able to weight bear. No previous hip pain. Comfortable at rest. No numbness, tingling, or other associated symptoms. Minimal shoulder discomfort. Review of Systems Review of Systems: Denies loss of consciousness. 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 Hypothyroidism (acquired) Nonrheumatic aortic valve stenosis Surgical History Surgical History Cornea replaced by transplant H/O shoulder replacement r shoulder replacement History of back surgery History of cataract surgery History of knee replacement Family History Family History Father Family history of kidney disease Other Family history of cardiovascular disease Social History Social History Smoking status: Former smoker Second hand tobacco smoke exposure: No Smoking end date: 08/22/94 Alcohol intake: never Gender identity (if verbalized by the patient): Male Meds Home Medications and Allergies Home Medications Medication Instructions Recorded Confirmed Type aspirin 81 mg tablet,delayed 81 mg PO DAILY #90 tabs 06/28/19 01/27/23 Rx release (Adult Aspirin Regimen) testosterone cypionate 200 mg/mL 100 mg IM .q2w 11/19/19 01/27/23 History intramuscular oil prednisolone acetate 1 % eye 1 drop ophthalmic (eye) Q12H 01/21/20 01/27/23 History drops,suspension (Pred Forte) lifitegrast 5 % eye drops in a 1 drop ophthalmic (eye) BID 02/13/20 01/27/23 History dropperette (Xiidra) cholecalciferol (vitamin D3) 125 125 mcg PO DAILY 04/14/20 01/27/23 History mcg (5,000 unit) capsule lorazepam 0.5 mg tablet 0.5 mg PO BID PRN anxiety 90 days 07/16/20 01/27/23 Rx #180 tabs atorvastatin 20 mg tablet 20 mg PO DAILY 90 days #90 tabs 12/15/20 01/27/23 Rx levothyroxine 125 mcg tablet 125 mcg PO DAILY 90 days #90 tabs 12/15/20 01/27/23 Rx ropinirole 4 mg tablet 4 mg PO QPM 90 days #90 tabs 12/15/20 01/27/23 Rx albuterol sulfate 2.5 mg/3 mL 2.5 mg DIRECTED 03/12/22 01/27/23 History (0.083 %) solution for nebulization albuterol sulfate 90 mcg/actuation 90 mcg inhalation
[2023-05-22 09:02] LABS: Prothrombin Time 13.8 Seconds (11.1-14.7)
[2023-05-22 09:03] LABS: Partial Thromboplastin Time 30.3 SECONDS (22.3-36.8)
--- NOTE | 2023-05-22 09:20 | ADMGEN ---
This patient, Serge Linares, was admitted to [facility] Surg Room 321-. Patient/family oriented to hospital policies and general routines including ID bracelet, bed and alarms, visiting hours, pain management, procedures, bathroom and other care routines, personal items, smoking policy, room service/diet, and visiting hours. Information on how to activate the Rapid Response Team has been discussed. Patient/Family are encouraged to report perceived risks to care and to ask questions if they do not understand what they are told or what they should do.
--- NOTE | 2023-05-22 11:50 | PM.IMHP ---
H&P: HPI History of Present Illness Date/Time: 05/22/23 11:50 Chief Complaint: Fall Narrative: This is an 88-year-old male with a past medical history COPD, Bladder cancer, hyperlipidemia, hypertension, hypothyroidism and restless legs syndrome the presents to the ED after having a fall at home. Patient had immediate left hip pain. Upon arriving to the ED imaging revealed acute subcapital left femoral neck fracture. Orthopedics consulted. According to the patient his is ill and he has been sleeping in a recliner next to her bed and K she needs to be getting up at night and while he was getting up out of the chair he tripped over his blanket causing him to fall. He denies loss of consciousness, dizziness or lightheadedness. He did state he hit his head but head CT without acute intracranial process. Patient's son states that he has had approximately 3 falls in the past month and 2 of them appear to be due to safety hazards in the home such as walking on hardwood floor with socks on and tripping over blankets. The other fall he had while he was in hospital due to an acute infection. plan for surgery in the morning. Analgesics p.r.n.. 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 Smoked for about 40 years. Two packs a day. occasional alcohol use in the past but has not used in 20 some years. No history of drug use. Smoking status: Former smoker Second hand tobacco smoke exposure: No Alcohol intake: former Substance use: never Lack of Transportation: No Lack of Food: Never True Current Housing: I Have Housing Concerned About Future Housing: No Difficulty Paying Gas/Electric Bills: No Difficulty Paying for Meds: No Currently Unemployed: No Education: Trade/Vocational Certificate Difficulty w/ Childcare or Family Care: No Gender identity (if verbalized by the patient): Male Spiritual care concerns: No Meds Home Medications and Allergies Home Medications Medication Instructions Recorded Confirmed Type prednisolone acetate 1 % eye 1 drop ophthalmic (eye) Q12H 01/21/20 05/22/23 History drops,suspension (Pred Forte) lifitegrast 5 % eye drops in a 1 drop ophthalmic (eye) BID 02/13/20 01/27/23 History dropperette (Xiidra) cholecalciferol (vitamin D3) 125 125 mcg PO DAILY 04/14/20 05/22/23 History mcg (5,000 unit) capsule atorvastatin 20 mg tablet 20 mg PO DAILY 90 days #90 tabs 12/15/20 05/22/23 Rx albuterol sulfate 2.5 mg/3 mL 2.5 mg DIRECTED 03/12/22 05/22/23 History (0.083 %) solution for nebulization albuterol sulfate 90 mcg/actuation 90 mcg inhalation DIRECTED 03/12/22 05/22/23 History aerosol inhaler budesonide 160 mcg-glycopyr 9 2 inh inhalation BID 03/12/22 05/22/23 History mcg-formot 4.8 mcg/actuation HFA inhaler (Breztri Aerosphere) omeprazole 40 mg capsule,delayed 40 mg PO DAILY 03/12/22 05/22/23 History release ketorolac 0.5 % eye drops 1 drp RIGHT EYE Q6H PRN itching #3 12/13/22 01/27/23 Rx mL furosemide 40 mg tablet 40 mg PO DAILY 01/13/23 05/22/23 History gabape
[2023-05-22] MEDS: HYDROcodone/acetaminophen (*CRX) 5-325 MG TABLET 1 TAB PO ×2 (12:36→20:48)
[2023-05-22] MEDS: PANTOPRAZOLE SODIUM IV 40 MG VIAL IV PUSH (12:37)
[2023-05-22] MEDS: MORPHINE SULFATE (*CRX) 2 MG/ML INJ IV PUSH ×2 (13:41→18:35)
[2023-05-22] MEDS: LOTEPREDNOL ETABONATE 0.5% OPH 5 ML BOTTLE 1 DROP LEFT EYE (16:58)
[2023-05-22] MEDS: hydrALAZINE HCL 25 MG TABLET PO (16:59)
[2023-05-22] MEDS: MOXIFLOXACIN HCL 0.5% 3 ML OPHTH SOLN 1 DROP RIGHT EYE ×2 (16:59→20:42)
[2023-05-22] MEDS: rOPINIRole HCL 1 MG TABLET 4 MG PO (20:41)
[2023-05-22] MEDS: AMITRIPTYLINE HCL 10 MG TABLET PO (20:41)
[2023-05-22] MEDS: LORATADINE 10 MG TABLET PO (20:41)
[2023-05-22] MEDS: prednisoLONE ACETATE 1% OPHTH 5 ML 1 DROP EACH EYE (20:42)
[2023-05-23] VITALS (20 sets, daily range): BP systolic 118–158; BP diastolic 59–99; PULSE 86–114; RESP 16–28; TEMP 36.6–37.9; O2SAT 90–100
[2023-05-23] MEDS: HYDROcodone/acetaminophen (*CRX) 5-325 MG TABLET 1 TAB PO (05:15)
[2023-05-23] MEDS: LEVOTHYROXINE SODIUM 150 MCG TABLET PO (06:00)
--- NOTE | 2023-05-23 06:04 | PC.NURSE ---
cefazolin and tranexamic are pre op meds and are to be giving in pre op this morning, consent needs to be verified and sign still this morning, informed to have day shift RN clarify consent per charge hand Kelley.
[2023-05-23 06:17] LABS: Basophils Absolute Auto 0.1 K/mm3 (0.0-0.1); Basophils Percent Auto 0.4 % (0.2-1.2); Eosinophils Absolute Auto 0.2 K/mm3 (0-0.3); Eosinophils Percent Auto 1.5 % (0-4.4); Hematocrit 49.6 % (42.0-52.0); Hemoglobin 16.9 g/dL (14.0-18.0); Immature Granulocyte Absolute 0.04 K/mm3 (0.00-0.031); Immature Granulocyte Percent A 0.3 % (0-0.5); Immature Platelet Fraction Pct 2.1 % (0.9-11.2); Lymphocytes Percent Auto 26.9 % (18.3-44.2); Mean Corpuscular HGB Conc 34.1 g/dl (32-36); Mean Corpuscular Hemoglobin 32.8 pg (26-34); Mean Corpuscular Volume 96.1 fl (80-100); Mean Platelet Volume 8.5 fl (7.4-10.4); Monocytes Absolute Auto 1.3 K/mm3 (0.1-0.6); Monocytes Percent Auto 9.5 % (2.6-8.5); Neutrophils Absolute Auto 8.7 K/mm3 (1.3-6.7); Neutrophils Percent Auto 61.4 % (45.5-73.1); Platelet Count Result 142 k/mm3 (150-375); Red Blood Count 5.16 M/mm3 (4.6-6.20); White Blood Count 14.2 K/mm3 (4.5-10.0)
[2023-05-23 06:26] LABS: Anion Gap 6 mmol/L (8-16); Blood Urea Nitrogen 20 mg/dL (9-20); Calcium 8.5 mg/dL (8.4-10.2); Carbon Dioxide 29 mmol/L (22-30); Chloride 96 mmol/L (98-107); Estimated CRCL calculation 42 ml/min; Estimated Glomerular Filt Rate > 60; Glucose 128 mg/dL (65-110); Potassium 3.8 mmol/L (3.4-5.0); Sodium 131 mmol/L (137-145)
[2023-05-23] MEDS: hydrALAZINE HCL 25 MG TABLET PO ×2 (09:00→19:11)
[2023-05-23] MEDS: MOXIFLOXACIN HCL 0.5% 3 ML OPHTH SOLN 1 DROP RIGHT EYE ×4 (09:01→20:41)
[2023-05-23] MEDS: LOTEPREDNOL ETABONATE 0.5% OPH 5 ML BOTTLE 1 DROP LEFT EYE ×2 (09:01→19:12)
[2023-05-23] MEDS: prednisoLONE ACETATE 1% OPHTH 5 ML 1 DROP EACH EYE ×2 (09:02→20:41)
[2023-05-23] MEDS: PANTOPRAZOLE SODIUM IV 40 MG VIAL IV PUSH (09:14)
[2023-05-23] MEDS: GABAPENTIN 100 MG CAPSULE PO (09:40)
[2023-05-23] MEDS: MORPHINE SULFATE (*CRX) 2 MG/ML INJ IV PUSH ×2 (10:26→20:57)
--- NOTE | 2023-05-23 10:54 | WPDHPUPDATE1 ---
History and Physical Update Update Date/Time: 05/23/23 10:54 History and Physical has been reviewed, including an updated exam of the patient. There are NO changes in the patient's condition. Risks, benefits, and alternatives have been discussed and questions answered. Patient agrees to proceed with procedure.
--- NOTE | 2023-05-23 13:06 | PM.IMPN ---
Progress Note: A&P Assessment and Plan (1) Closed subcapital fracture of left femur: Qualifiers: Encounter type: initial encounter Qualified Code(s): S72.012A - Unspecified intracapsular fracture of left femur, initial encounter for closed fracture Code(s): S72.012A - Unspecified intracapsular fracture of left femur, initial encounter for closed fracture Status: Acute Assessment and Plan: x-ray revealing subcapital left femoral neck fracture. Orthopedics consulted. Surgery scheduled for 5:00 p.m. today. Analgesics p.r.n.. DVT prophylaxis , PT and OT per orthopedic surgeon. (2) COPD (chronic obstructive pulmonary disease) with chronic bronchitis: Code(s): J44.9 - Chronic obstructive pulmonary disease, unspecified Status: Acute Assessment and Plan: Stable. Simon Recommend postoperative spirometry. (3) Hypothyroidism (acquired): Code(s): E03.9 - Hypothyroidism, unspecified Status: Acute Assessment and Plan: Resume Synthroid once home meds have been reconciled (4) Gastroesophageal reflux disease: Code(s): K21.9 - Gastro-esophageal reflux disease without esophagitis Status: Acute Assessment and Plan: Protonix 40 mg daily for GI prophylaxis. (5) Mixed hyperlipidemia: Code(s): E78.2 - Mixed hyperlipidemia Status: Acute Assessment and Plan: Continue home medication once reconciled. Subjective Date/time seen: 05/23/23 13:06 Interval history: Patient doing well today and surgery is planned for later today at 5:00 p.m.. He is undergoing a left hip pending. Plan is to discharge him to a rehab facility after surgery. Talked with both care coordination and patient's son regarding this. Therapy will evaluate him postoperatively. PT, OT, DVT prophylaxis and analgesics per orthopedic team. Other than left hip pain patient has no concerns at this time. Exam Narrative: GENERAL: Comfortable, no acute distress HENMT: moist mucous membranes EYES: EOM intact b/l NECK: no lymphadenopathy RESPIRATORY: clear to auscultation Although distant breath sounds CARDIO: RRR GI: soft, nontender, bowel sounds present SKIN: no rashes EXTREMITIES: no edema or redness; Pain over left hip. Objective Data Vital Signs Vital Signs: Vital Signs - 24 hr 05/22/23 14:00 05/22/23 21:11 05/22/23 20:00 Temperature 97.6 F 98.8 F Pulse Rate 100 115 H Respiratory Rate 20 20 Blood Pressure 146/83 H 117/71 Pulse Oximetry 95 90 92 Oxygen Delivery Room Air 05/23/23 05:25 05/23/23 08:00 Temperature 97.9 F Pulse Rate 86 Respiratory Rate 18 18 Blood Pressure 120/77 Pulse Oximetry 94 94 Oxygen Delivery Room Air Intake/Output Intake/Output: Intake & Output 05/20/23 05/21/23 05/22/23 05/23/23 23:59 23:59 23:59 23:59 Intake Total 160 Output Total 500 Balance 160 -500 Meds/Results Medications: Active Medications Generic Name Dose Route Start Last Admin Trade Name Freq PRN Reason Stop Dose Admin Acetaminophen 650 mg 05/22/23 11:59 Acetaminophen 325 Mg Tablet PO Q4H PRN Headache Hydrocodone Bitart/Acetaminophen 1 tab 05/22/23 11:59 05/23/23 05:15 Hydrocodone/Acetaminophen (*Crx) 5-325 Mg Tablet PO 1 tab Q6H PRN Administration Pain Rated 4-6 Albuterol 2.5 mg 05/22/23 12:00 Albuterol Sulfate Neb 2.5 Mg/3 Ml Inh INHALATION Q6HRT PRN Shortness Of Breath Amitriptyline HCl 10 mg 05/22/23 21:00 05/22/23 20:41 Amitriptyline Hcl 10 Mg Tablet PO 10 mg HS FREDERICK Administration Furosemide 40 mg 05/23/23 09:00 05/23/23 08:55 Furosemide 40 Mg Tablet PO Not Given DAILY FREDERICK Gabapentin 100 mg 05/23/23 09:00 05/23/23 09:40 Gabapentin 100 Mg Capsule PO 100 mg DAILY FREDERICK Administration Hydralazine HCl 25 mg 05/22/23 17:00 05/23/23 12:34 Hydralazine Hcl 25 Mg Tablet PO Not
--- NOTE | 2023-05-23 13:55 | PC.NURSE ---
Report called too Ravi ASHTON Preop.
--- NOTE | 2023-05-23 14:35 | PC.NURSE ---
To OR via bed. Son notified that patient heading to surgery.
--- NOTE | 2023-05-23 15:20 | WPDANESEPPF ---
Anes - Initial Pre Proc Eval Procedure: Operation Date: 05/23/23 17:00 Proposed Procedures p Left Hip Pinning - Thaddeus Gonzales MD Date/Time: 05/23/23 15:20 Surgeon: Ronaldo Garvin MD Pre Op Diagnosis: Left Femur Fracture Patient Data Age: 88 Gender: M Height: 1.52 m Weight: 74.5 kg Last Vital Signs Temp 36.9 C 05/23/23 14:00 Pulse 99 05/23/23 14:00 Resp 18 05/23/23 14:00 BP 134/70 05/23/23 14:00 Pulse Ox 91 05/23/23 14:00 O2 Del Method Room Air 05/23/23 08:00 Allergies Allergy/AdvReac Type Severity Reaction Status Date / Time Penicillins Allergy Intermediate sweating Verified 05/22/23 03:23 Sulfa (Sulfonamide AdvReac Severe throat Verified 05/22/23 03:23 Antibiotics) swelling Home Medications Medication Instructions Recorded Confirmed Type prednisolone acetate 1 % eye 1 drop ophthalmic (eye) Q12H 01/21/20 05/22/23 History drops,suspension (Pred Forte) cholecalciferol (vitamin D3) 125 125 mcg PO DAILY 04/14/20 05/22/23 History mcg (5,000 unit) capsule atorvastatin 20 mg tablet 20 mg PO DAILY 90 days #90 tabs 12/15/20 05/22/23 Rx albuterol sulfate 2.5 mg/3 mL 2.5 mg DIRECTED 03/12/22 05/22/23 History (0.083 %) solution for nebulization albuterol sulfate 90 mcg/actuation 90 mcg inhalation DIRECTED 03/12/22 05/22/23 History aerosol inhaler budesonide 160 mcg-glycopyr 9 2 inh inhalation BID 03/12/22 05/22/23 History mcg-formot 4.8 mcg/actuation HFA inhaler (Breztri Aerosphere) omeprazole 40 mg capsule,delayed 40 mg PO DAILY 03/12/22 05/22/23 History release ketorolac 0.5 % eye drops 1 drp RIGHT EYE Q6H PRN itching #3 12/13/22 05/22/23 Rx mL furosemide 40 mg tablet 40 mg PO DAILY 01/13/23 05/22/23 History gabapentin 100 mg capsule 100 mg PO DAILY 01/13/23 05/22/23 History hydralazine 25 mg tablet 25 mg PO TID 01/13/23 05/22/23 History amitriptyline 10 mg tablet 10 mg PO HS 05/22/23 05/22/23 History levocetirizine 5 mg tablet 5 mg PO HS 05/22/23 05/22/23 History levothyroxine 125 mcg tablet 150 mcg PO DAILY 05/22/23 05/22/23 History loteprednol etabonate 0.5 % eye 1 drp LEFT EYE BID 05/22/23 05/22/23 History drops,suspension moxifloxacin 0.5 % eye drops 1 drp RIGHT EYE QID 05/22/23 05/22/23 History (Vigamox) ropinirole 4 mg tablet 4 mg PO HS 05/22/23 05/22/23 History Laboratory Tests 05/23/23 05:56 WBC 14.2 H K/mm3 (4.5-10.0) RBC 5.16 M/mm3 (4.6-6.20) Hgb 16.9 g/dL (14.0-18.0) Hct 49.6 % (42.0-52.0) MCV 96.1 fl (80-100) MCH 32.8 pg (26-34) MCHC 34.1 g/dl (32-36) RDW 14.0 % (11.5-14.5) Plt Count 142 L k/mm3 (150-375) MPV 8.5 fl (7.4-10.4) Immature Gran % (Auto) 0.3 % (0-0.5) Neut % (Auto) 61.4 % (45.5-73.1) Lymph % (Auto) 26.9 % (18.3-44.2) Frio % (Auto) 9.5 H % (2.6-8.5) Eos % (Auto) 1.5 % (0-4.4) Baso % (Auto) 0.4 % (0.2-1.2) Lymph # (Auto) 3.80 H K/mm3 (0.9-3.2) Frio # (Auto) 1.3 H K/mm3 (0.1-0.6) Eos # (Auto) 0.2 K/mm3 (0-0.3) Baso # (Auto) 0.1 K/mm3 (0.0-0.1) Abs Immat Gran (auto) 0.04 H K/mm3 (0.00-0.031) Absolute Neuts (auto) 8.7 H K/mm3 (1.3-6.7) Absolute Nucleated RBC 0.0 K/mm3 (0.0-0.012) Nucleated RBC % 0.0 % (0.0-0.2) % Immature Plt Fraction 2.1 % (0.9-11.2) Sodium 131 L mmol/L (137-145) Potassium 3.8 mmol/L (3.4-5.0) Chloride 96 L mmol/L (98-107) Carbon Dioxide 29 mmol/L (22-30) Anion Gap 6 L mmol/L (8-16) BUN 20 mg/dL (9-20) Creatinine 0.90 mg/dL (0.7-1.3) Estim Creat Clear Calc 42 ml/min Estimated GFR > 60 (59 - ) Glucose 128 H mg/dL (65-110) Calcium 8.5 mg/dL (8.4-10.2) Patient hx anesthesia problems: none Family hx anesthesia problems: none Results Review: All pre-operative results and documents have been reviewed as part of the pre-operative evaluation. [facility] Past Medical Hist
[2023-05-23] MEDS: LACTATED RINGERS 1,000 ML 30 ML IV CONT (15:23)
[2023-05-23] MEDS: ceFAZolin 2 GM/D5W 50 ML 2 GM/50 ML BAG IVPB (15:48)
[2023-05-23] MEDS: BUPIVACAINE/EPINEPHRINE 0.5% 50 ML VIAL 20 ML INFILTRATE (16:15)
--- NOTE | 2023-05-23 16:52 | W.PM.PROC2 ---
Procedure Note - Detailed Date of Procedure 05/23/23 Pre-op Diagnosis Left Femoral Neck Fracture, valgus impacted. Post-op Diagnosis Same Procedure Performed Percutaneous pinning with 3 cannulated screws. Surgeon Thaddeus Gonzales MD Anesthesia General Description of Procedure Preoperative antibiotics were given. The patient was brought to the operating room. In general anesthetic was administered. The patient was carefully placed on the fracture table. By planar fluoroscopy was used to confirm maintenance of reduction and treatment of reduction as necessary. The hip was prepped and draped in usual sterile fashion with a sterile curtain. A stab incision was created at the inferior trochanter. The guide pin was placed into the center of the femoral neck inferiorly. Two additional guide pins were placed superiorly were inverted triangle shape. Measurements were taken and the outer cortex was drilled. Three partially-threaded cannulated screws were placed. A washer was used on the distal screw. The crease incisions were closed with interrupted 2-0 Vicryl suture followed by Steri-Strips. The sterile dressing was applied. The patient was transferred to the recovery room in stable condition and extubated. There were no complications. Implants Synthes 7.3 mm partially threaded cannulated screws. Estimated Blood Loss 10 Urine Output 200 Pathology None sent Complications No immediate complications Condition Stable Disposition PACU [facility] Billing Surgery - Charge Forward: Surgery Billing
[2023-05-23] MEDS: ALBUTEROL SULFATE NEB 2.5 MG/3 ML INH INHALATION (17:18)
[2023-05-23] MEDS: IPRATROPIUM BR 0.02% INH SOLN 0.5 MG/2.5 ML VIAL INHALATION (17:18)
[2023-05-23] MEDS: METOPROLOL TARTRATE INJ 5 MG/5 ML VIAL 2.5 MG IV PUSH (17:35)
[2023-05-23] MEDS: ONDANSETRON INJ 4 MG/2 ML VIAL IV PUSH (18:08)
--- NOTE | 2023-05-23 18:30 | PC.NURSE ---
Returned from OR via bed. Family at bedside. Voiding without difficulty.
[2023-05-23] MEDS: SENNA/DOCUSATE SODIUM TABLET 2 TAB PO (19:11)
[2023-05-23] MEDS: ACETAMINOPHEN 500 MG TABLET 1000 MG PO (19:11)
[2023-05-23] MEDS: SODIUM CHLORIDE 0.9% IV 1,000 ML 125 ML IV CONT (20:39)
[2023-05-23] MEDS: LORATADINE 10 MG TABLET PO (20:40)
[2023-05-23] MEDS: rOPINIRole HCL 1 MG TABLET 4 MG PO (20:40)
[2023-05-23] MEDS: AMITRIPTYLINE HCL 10 MG TABLET PO (20:40)
[2023-05-23] MEDS: FAMOTIDINE 20 MG TABLET PO (20:40)
[2023-05-24] VITALS (7 sets, daily range): BP systolic 117–127; BP diastolic 60–73; PULSE 91–98; RESP 16–28; TEMP 36.2–36.8; O2SAT 90–98
[2023-05-24] MEDS: ceFAZolin 2 GM/D5W 50 ML 2 GM/50 ML BAG IVPB ×3 (00:28→17:25)
[2023-05-24] MEDS: ACETAMINOPHEN 500 MG TABLET 1000 MG PO ×5 (00:30→23:32)
[2023-05-24] MEDS: SODIUM CHLORIDE 0.9% IV 1,000 ML 125 ML IV CONT (06:38)
[2023-05-24] MEDS: LEVOTHYROXINE SODIUM 150 MCG TABLET PO (06:39)
[2023-05-24 07:21] LABS: Basophils Percent Auto 0.3 % (0.2-1.2); Eosinophils Absolute Auto 0.3 K/mm3 (0-0.3); Eosinophils Percent Auto 2.6 % (0-4.4); Hematocrit 48.7 % (42.0-52.0); Hemoglobin 16.4 g/dL (14.0-18.0); Immature Granulocyte Absolute 0.04 K/mm3 (0.00-0.031); Immature Granulocyte Percent A 0.3 % (0-0.5); Immature Platelet Fraction Pct 2.6 % (0.9-11.2); Lymphocytes Absolute Auto 3.62 K/mm3 (0.9-3.2); Lymphocytes Percent Auto 29.9 % (18.3-44.2); Mean Corpuscular HGB Conc 33.7 g/dl (32-36); Mean Corpuscular Hemoglobin 32.9 pg (26-34); Mean Corpuscular Volume 97.6 fl (80-100); Monocytes Absolute Auto 1.4 K/mm3 (0.1-0.6); Monocytes Percent Auto 11.7 % (2.6-8.5); Neutrophils Absolute Auto 6.7 K/mm3 (1.3-6.7); Neutrophils Percent Auto 55.2 % (45.5-73.1); Platelet Count Result 124 k/mm3 (150-375); Red Blood Count 4.99 M/mm3 (4.6-6.20); Red Cell Distribution Width 14.2 % (11.5-14.5); White Blood Count 12.1 K/mm3 (4.5-10.0)
[2023-05-24 07:28] LABS: Alanine Aminotransferase 24 U/L (6-50); Albumin Level 3.5 g/dL (3.5-5.1); Alkaline Phosphatase 89 U/L (38-126); Anion Gap 5 mmol/L (8-16); Aspartate Amino Transferase 35 U/L (17-59); Blood Urea Nitrogen 23 mg/dL (9-20); Calcium 8.2 mg/dL (8.4-10.2); Carbon Dioxide 28 mmol/L (22-30); Chloride 99 mmol/L (98-107); Estimated CRCL calculation 42 ml/min; Estimated Glomerular Filt Rate > 60; Glucose 113 mg/dL (65-110); Potassium 3.9 mmol/L (3.4-5.0); Sodium 132 mmol/L (137-145)
--- NOTE | 2023-05-24 07:51 | WPDANESPN ---
Anes - Prog Note Post-Op Date/Time: 05/24/23 07:51 Cardiovascular status: normal Respiratory status: normal Airway patency: baseline Mental status: baseline Post-Op hydration status: normal Vital Signs: Last Vital Signs Temp 36.2 C L 05/24/23 04:00 Pulse 94 05/24/23 04:00 Resp 20 05/24/23 04:00 BP 125/67 05/24/23 04:00 Pulse Ox 91 05/24/23 04:00 O2 Del Method Nasal Cannula 05/23/23 20:35 O2 Flow Rate 3 05/23/23 20:35 FiO2 32 05/23/23 20:30 Pain Score (VAS): 0 I/O: Intake & Output 05/23/23 05/23/23 05/24/23 15:59 23:59 07:59 Intake Total 470 1150 Output Total 500 300 125 Balance -265 633 [id number] Laboratory Tests 05/24/23 07:00 05/24/23 07:00 05/24/23 07:00 WBC 12.1 H RBC 4.99 Hgb 16.4 Hct 48.7 MCV 97.6 MCH 32.9 MCHC 33.7 RDW 14.2 Plt Count 124 L MPV 9.0 Immature Gran % (Auto) 0.3 Neut % (Auto) 55.2 Lymph % (Auto) 29.9 [place] % (Auto) 11.7 H Eos % (Auto) 2.6 Baso % (Auto) 0.3 Lymph # (Auto) 3.62 H [place] # (Auto) 1.4 H Eos # (Auto) 0.3 Baso # (Auto) 0.0 Abs Immat Gran (auto) 0.04 H Absolute Neuts (auto) 6.7 Absolute Nucleated RBC 0.0 Nucleated RBC % 0.0 % Immature Plt Fraction 2.6 Sodium 132 L Potassium 3.9 Chloride 99 Carbon Dioxide 28 Anion Gap 5 L BUN 23 H Creatinine 0.90 Estim Creat Clear Calc 42 Estimated GFR > 60 Glucose 113 H Calcium 8.2 L Total Bilirubin 4.0 H AST 35 ALT 24 Alkaline Phosphatase 89 Total Protein 7.0 Albumin 3.5 Post-procedural complaints: none Patient Feedback: Patient satisfied with anesthetic care.
[2023-05-24] MEDS: PANTOPRAZOLE SODIUM IV 40 MG VIAL IV PUSH (09:27)
[2023-05-24] MEDS: GABAPENTIN 100 MG CAPSULE PO (09:28)
[2023-05-24] MEDS: CHOLECALCIFEROL 1,000 UNITS TABLET 5000 UNITS PO (09:28)
[2023-05-24] MEDS: SENNA/DOCUSATE SODIUM TABLET 2 TAB PO ×2 (09:28→17:24)
[2023-05-24] MEDS: hydrALAZINE HCL 25 MG TABLET PO ×3 (09:28→17:24)
[2023-05-24] MEDS: polyethylene glycoL 3350 17 GM POWD.PACK PO (09:28)
[2023-05-24] MEDS: FUROSEMIDE 40 MG TABLET PO (09:28)
[2023-05-24] MEDS: ENOXAPARIN 30 MG/0.3 ML SYRINGE SUB-Q (09:28)
[2023-05-24] MEDS: FAMOTIDINE 20 MG TABLET PO ×2 (09:28→20:35)
[2023-05-24] MEDS: MOXIFLOXACIN HCL 0.5% 3 ML OPHTH SOLN 1 DROP RIGHT EYE ×4 (09:29→20:35)
[2023-05-24] MEDS: prednisoLONE ACETATE 1% OPHTH 5 ML 1 DROP EACH EYE ×2 (09:29→20:35)
[2023-05-24] MEDS: LOTEPREDNOL ETABONATE 0.5% OPH 5 ML BOTTLE 1 DROP LEFT EYE ×2 (09:29→17:26)
--- NOTE | 2023-05-24 13:44 | PM.PNORT ---
Progress Note: A&P Assessment and Plan (1) Closed subcapital fracture of left femur: Qualifiers: Encounter type: initial encounter Qualified Code(s): S72.012A - Unspecified intracapsular fracture of left femur, initial encounter for closed fracture Code(s): S72.012A - Unspecified intracapsular fracture of left femur, initial encounter for closed fracture Status: Acute Assessment and Plan: POD #1 Percutaneous pinning with 3 cannulated screws. Patient doing well. Pain controlled with medications. He has had PT/OT and tolerating it. Discussed plan with the patient and son. Will plan on rehab for 4-6 weeks. Partial weight bearing with a walker. He will follow up in office in 4-6 weeks. Ortho instructions: D/C to SNF/rehab Follow up in office in 4-6 weeks with xrays. Wound Care: Remove Mepilex dressing at 7 days post op. Remove steristrips at 14 days post op. May shower. No soaking. PT:Partial weight bearing with a walker. DVT prophylaxis: continue Lovenox for 30 days total Subjective Subjective Date/Time Seen: 05/24/23 13:44 Interval history: Patient resting comfortably in bed. No acute distress. No numbness or tingling. Pain rated a 4-6. Worse when getting up. Review of Systems Review of Systems: All systems reviewed & are unremarkable except as noted in HPI and below Exam Narrative: Overweight 88 y/o Male. Resting comfortably in bed. Dressing dry and intact with no drainage. Moderate swelling. No edema. No ecchymosis. No erythema. No hematoma. Range of motion limited due to pain. Calf nontender. Thigh nontender. No varicosities. Distal pulses palpable. Wiggles toes. Good plantar flexion and dorsiflexion strength. Objective Data Vital Signs Vital Signs: Vital Signs - 24 hr 05/23/23 14:00 05/23/23 15:04 05/23/23 16:52 Temperature 98.5 F 100.2 F H 100.2 F H Pulse Rate 99 100 102 H Respiratory Rate 18 16 23 H Blood Pressure 134/70 128/59 L 155/70 H Pulse Oximetry 91 100 96 Oxygen Delivery Room Air Simple Face Mask Oxygen Flow Rate 8 Fraction of Inspired Oxygen 05/23/23 17:07 05/23/23 17:22 05/23/23 17:18 Temperature Pulse Rate 114 H 107 H 113 H Respiratory Rate 28 H 25 H 21 H Blood Pressure 158/99 H 158/74 H Pulse Oximetry 90 100 Oxygen Delivery Simple Face Mask Simple Face Mask Oxygen Flow Rate 8 8 Fraction of Inspired Oxygen 05/23/23 17:29 05/23/23 17:37 05/23/23 17:35 Temperature Pulse Rate 106 H 113 H 114 H Respiratory Rate 25 H 21 H Blood Pressure Pulse Oximetry 99 Oxygen Delivery Simple Face Mask Oxygen Flow Rate 9 Fraction of Inspired Oxygen 05/23/23 17:37 05/23/23 18:07 05/23/23 17:52 Temperature 99.0 F Pulse Rate 106 H 95 94 Respiratory Rate 25 H 25 H 24 H Blood Pressure 145/73 H 135/72 135/79 Pulse Oximetry 99 96 95 Oxygen Delivery Simple Face Mask Nasal Cannula Nasal Cannula Oxygen Flow Rate 8 3 3 Fraction of Inspired Oxygen 05/23/23 18:33 05/23/23 18:30 05/23/23 18:45 Temperature 98.9 F 98.9 F Pulse Rate 95 98 99 Respiratory Rate 25 H 22 H 22 H Blood Pressure 127/66 132/66 Pulse Oximetry 96 94 94 Oxygen Delivery Nasal Cannula Oxygen Flow Rate 3 Fraction of Inspired Oxygen 05/23/23 19:15 05/23/23 20:03 05/23/23 20:35 Temperature 98.2 F 98.3 F Pulse Rate 98 99 Respiratory Rate 22 H 18 Blood Pressure 145/75 H 118/74 Pulse Oximetry 93 94 94 Oxygen Delivery Nasal Cannula Oxygen Flow Rate 3 Fraction of Inspired Oxygen 05/24/23 00:00 05/23/23 20:30 05/24/23 04:00 Temperature 97.4 F L 97.2 F L Pulse Rate 96 94 Respiratory Rate 18 20 Blood Pressure 118/67 125/67 Pulse Oximetry 90 94 91 Oxygen Delivery Nasal Cannula Oxygen Flow Rate 3 Fraction of Inspired Oxygen 32 05/24/23 08:00 05/24/23 11:02 05/24/23 11:48 Temperature 97.5 F L Pulse Rate 93 Respiratory Rate 26 H Blood Pressure 123/70 Pulse Oximetry 93 Oxygen Delivery Room
--- NOTE | 2023-05-24 14:30 | PM.IMPN ---
Progress Note: A&P Assessment and Plan (1) Closed subcapital fracture of left femur: Qualifiers: Encounter type: initial encounter Qualified Code(s): S72.012A - Unspecified intracapsular fracture of left femur, initial encounter for closed fracture Code(s): S72.012A - Unspecified intracapsular fracture of left femur, initial encounter for closed fracture Status: Acute Assessment and Plan: x-ray revealing subcapital left femoral neck fracture. Orthopedics consulted. Postop day 1 left hip pinning Analgesics p.r.n.. DVT prophylaxis , PT and OT per orthopedic surgeon. Patient likely need placement. (2) COPD (chronic obstructive pulmonary disease) with chronic bronchitis: Code(s): J44.9 - Chronic obstructive pulmonary disease, unspecified Status: Acute Assessment and Plan: Stable. Simon Recommend postoperative spirometry. (3) Hypothyroidism (acquired): Code(s): E03.9 - Hypothyroidism, unspecified Status: Acute Assessment and Plan: Resume Synthroid once home meds have been reconciled (4) Gastroesophageal reflux disease: Code(s): K21.9 - Gastro-esophageal reflux disease without esophagitis Status: Acute Assessment and Plan: Protonix 40 mg daily for GI prophylaxis. (5) Mixed hyperlipidemia: Code(s): E78.2 - Mixed hyperlipidemia Status: Acute Assessment and Plan: Continue home medication once reconciled. Subjective Date/time seen: 05/24/23 14:30 Interval history: Patient doing well and states that his pain is well controlled. He is postop day 1.. PT and OT plan to work with patient. Patient going to need placement. He has no complaints at this time. Exam Narrative: GENERAL: Comfortable, no acute distress HENMT: moist mucous membranes EYES: EOM intact b/l NECK: no lymphadenopathy RESPIRATORY: clear to auscultation Although distant breath sounds CARDIO: RRR GI: soft, nontender, bowel sounds present SKIN: no rashes EXTREMITIES: no edema or redness; Pain over left hip. Objective Data Vital Signs Vital Signs: Vital Signs - 24 hr 05/23/23 15:04 05/23/23 16:52 05/23/23 17:07 Temperature 100.2 F H 100.2 F H Pulse Rate 100 102 H 114 H Respiratory Rate 16 23 H 28 H Blood Pressure 128/59 L 155/70 H 158/99 H Pulse Oximetry 100 96 90 Oxygen Delivery Room Air Simple Face Mask Simple Face Mask Oxygen Flow Rate 8 8 Fraction of Inspired Oxygen 05/23/23 17:22 05/23/23 17:18 05/23/23 17:29 Temperature Pulse Rate 107 H 113 H 106 H Respiratory Rate 25 H 21 H 25 H Blood Pressure 158/74 H Pulse Oximetry 100 Oxygen Delivery Simple Face Mask Oxygen Flow Rate 8 Fraction of Inspired Oxygen 05/23/23 17:37 05/23/23 17:35 05/23/23 17:37 Temperature Pulse Rate 113 H 114 H 106 H Respiratory Rate 21 H 25 H Blood Pressure 145/73 H Pulse Oximetry 99 99 Oxygen Delivery Simple Face Mask Simple Face Mask Oxygen Flow Rate 9 8 Fraction of Inspired Oxygen 05/23/23 18:07 05/23/23 17:52 05/23/23 18:33 Temperature 99.0 F Pulse Rate 95 94 95 Respiratory Rate 25 H 24 H 25 H Blood Pressure 135/72 135/79 Pulse Oximetry 96 95 96 Oxygen Delivery Nasal Cannula Nasal Cannula Nasal Cannula Oxygen Flow Rate 3 3 3 Fraction of Inspired Oxygen 05/23/23 18:30 05/23/23 18:45 05/23/23 19:15 Temperature 98.9 F 98.9 F 98.2 F Pulse Rate 98 99 98 Respiratory Rate 22 H 22 H 22 H Blood Pressure 127/66 132/66 145/75 H Pulse Oximetry 94 94 93 Oxygen Delivery Oxygen Flow Rate Fraction of Inspired Oxygen 05/23/23 20:03 05/23/23 20:35 05/24/23 00:00 Temperature 98.3 F 97.4 F L Pulse Rate 99 96 Respiratory Rate 18 18 Blood Pressure 118/74 118/67 Pulse Oximetry 94 94 90 Oxygen Delivery Nasal Cannula Oxygen Flow Rate 3 Fraction of Inspired Oxygen 05/23/23 20:30 05/24/23 04:00 05/24/23 08:00 Tem
[2023-05-24] MEDS: LORATADINE 10 MG TABLET PO (20:35)
[2023-05-24] MEDS: AMITRIPTYLINE HCL 10 MG TABLET PO (20:35)
[2023-05-24] MEDS: rOPINIRole HCL 1 MG TABLET 4 MG PO (20:35)
[2023-05-24] MEDS: HYDROcodone/acetaminophen (*CRX) 5-325 MG TABLET 1 TAB PO (20:35)
[2023-05-25] VITALS (8 sets, daily range): BP systolic 103–159; BP diastolic 51–90; PULSE 88–100; RESP 16–22; TEMP 35.9–36.7; O2SAT 91–96
[2023-05-25] MEDS: ACETAMINOPHEN 500 MG TABLET 1000 MG PO ×3 (05:49→21:58)
[2023-05-25] MEDS: LEVOTHYROXINE SODIUM 150 MCG TABLET PO (05:49)
[2023-05-25 06:13] LABS: Hemoglobin 15.6 g/dL (14.0-18.0); Mean Corpuscular HGB Conc 33.9 g/dl (32-36); Mean Corpuscular Hemoglobin 32.5 pg (26-34); Mean Corpuscular Volume 95.8 fl (80-100); Mean Platelet Volume 8.9 fl (7.4-10.4); Platelet Count Result 109 k/mm3 (150-375); Red Cell Distribution Width 13.9 % (11.5-14.5); White Blood Count 10.7 K/mm3 (4.5-10.0)
[2023-05-25 06:28] LABS: Anion Gap 5 mmol/L (8-16); Blood Urea Nitrogen 18 mg/dL (9-20); Calcium 8.1 mg/dL (8.4-10.2); Carbon Dioxide 28 mmol/L (22-30); Chloride 98 mmol/L (98-107); Estimated CRCL calculation 53 ml/min; Estimated Glomerular Filt Rate > 60; Glucose 114 mg/dL (65-110); Potassium 3.3 mmol/L (3.4-5.0); Sodium 131 mmol/L (137-145)
[2023-05-25] MEDS: polyethylene glycoL 3350 17 GM POWD.PACK PO (09:28)
[2023-05-25] MEDS: FUROSEMIDE 40 MG TABLET PO (09:28)
[2023-05-25] MEDS: SENNA/DOCUSATE SODIUM TABLET 2 TAB PO ×2 (09:28→17:24)
[2023-05-25] MEDS: FAMOTIDINE 20 MG TABLET PO ×2 (09:28→21:59)
[2023-05-25] MEDS: hydrALAZINE HCL 25 MG TABLET PO ×3 (09:28→17:24)
[2023-05-25] MEDS: CHOLECALCIFEROL 1,000 UNITS TABLET 5000 UNITS PO (09:28)
[2023-05-25] MEDS: GABAPENTIN 100 MG CAPSULE PO (09:28)
[2023-05-25] MEDS: ENOXAPARIN 30 MG/0.3 ML SYRINGE SUB-Q (09:35)
[2023-05-25] MEDS: MOXIFLOXACIN HCL 0.5% 3 ML OPHTH SOLN 1 DROP RIGHT EYE ×4 (09:36→21:59)
[2023-05-25] MEDS: LOTEPREDNOL ETABONATE 0.5% OPH 5 ML BOTTLE 1 DROP LEFT EYE ×2 (09:36→17:24)
[2023-05-25] MEDS: prednisoLONE ACETATE 1% OPHTH 5 ML 1 DROP EACH EYE ×2 (09:36→21:59)
--- NOTE | 2023-05-25 09:45 | PM.PNORT ---
Progress Note: A&P Assessment and Plan (1) Closed subcapital fracture of left femur: Qualifiers: Encounter type: initial encounter Qualified Code(s): S72.012A - Unspecified intracapsular fracture of left femur, initial encounter for closed fracture Code(s): S72.012A - Unspecified intracapsular fracture of left femur, initial encounter for closed fracture Status: Acute Assessment and Plan: POD #2 Percutaneous pinning with 3 cannulated screws. Patient doing well. Pain controlled with medications. He has had PT/OT and tolerating it. He has been able to get up and walk to the bathroom. Discussed plan with the patient and son. Will plan on rehab for 4-6 weeks. Partial weight bearing with a walker. He will follow up in office in 4-6 weeks. We discussed wound care and plan again. Patient and son are agreeable. Will conitnue to follow. Okay for discharge once medically clear. Ortho instructions: D/C to SNF/rehab Follow up in office in 4-6 weeks with xrays. Wound Care: Remove Mepilex dressing at 7 days post op. Remove steristrips at 14 days post op. May shower. No soaking. PT:Partial weight bearing with a walker. DVT prophylaxis: continue Lovenox for 30 days total Subjective Subjective Date/Time Seen: 05/25/23 09:45 Interval history: Patient sitting up in bed. Notes pain. He states he got up twice yesterday and walked to the bathroom. Pain with ambulating. He did have to use a sarasteady. No numbness or tingling. Review of Systems Review of Systems: All systems reviewed & are unremarkable except as noted in HPI and below Exam Narrative: Overweight 88 y/o Male. Resting comfortably in chair. Dressing dry and intact with no drainage. Moderate swelling. No edema. No ecchymosis. No erythema. No hematoma. Range of motion limited due to pain. Calf nontender. Thigh nontender. No varicosities. Distal pulses palpable. Wiggles toes. Good plantar flexion and dorsiflexion strength. Objective Data Vital Signs Vital Signs: Vital Signs - 24 hr 05/24/23 11:02 05/24/23 11:48 05/24/23 12:00 Temperature 97.3 F L Pulse Rate 98 Respiratory Rate 28 H Blood Pressure 127/73 Pulse Oximetry 96 Oxygen Delivery Room Air Nasal Cannula Oxygen Flow Rate 1 Fraction of Inspired Oxygen 05/24/23 16:00 05/24/23 20:00 05/24/23 20:00 Temperature 98.3 F 97.4 F L Pulse Rate 91 91 96 Respiratory Rate 26 H 26 H 16 Blood Pressure 117/71 119/60 Pulse Oximetry 96 96 94 Oxygen Delivery Nasal Cannula Oxygen Flow Rate 2 Fraction of Inspired Oxygen 32 05/25/23 00:00 05/25/23 04:00 05/25/23 08:26 Temperature 97.1 F L 96.6 F L Pulse Rate 100 95 Respiratory Rate 20 20 Blood Pressure 125/72 126/90 Pulse Oximetry 92 93 95 Oxygen Delivery Nasal Cannula Oxygen Flow Rate 1.5 Fraction of Inspired Oxygen 05/25/23 08:00 Temperature 97.1 F L Pulse Rate 88 Respiratory Rate 20 Blood Pressure 159/74 H Pulse Oximetry 96 Oxygen Delivery Oxygen Flow Rate Fraction of Inspired Oxygen Intake/Output Intake/Output: Intake & Output 05/22/23 05/23/23 05/24/23 05/25/23 23:59 23:59 23:59 23:59 Intake Total 486 210 3735 390 Output Total 1000 325 400 Balance 160 -530 1956 Meds/Results Medications: Active Medications Generic Name Dose Route Start Last Admin Trade Name Freq PRN Reason Stop Dose Admin Acetaminophen 650 mg 05/22/23 11:59 Acetaminophen 325 Mg Tablet PO Q4H PRN Headache Acetaminophen 1,000 mg 05/23/23 19:00 05/25/23 05:49 Acetaminophen 500 Mg Tablet PO 1,000 mg Q6H FREDERICK Administration Hydrocodone Bitart/Acetaminophen 1 tab 05/22/23 11:59 05/24/23 20:35 Hydrocodone/Acetaminophen (*Crx) 5-325 Mg Tablet PO 1 tab Q6H PRN Administration Pain Rated 4-6 Albuterol 2.5 mg 05/22/23 12:00 05/23/23 17:18 Albuterol Sulfate Neb 2.5 Mg/3 Ml Inh INHALATION 2.5 mg Q6HRT PRN Administration Shortness Of Breath
--- NOTE | 2023-05-25 12:10 | PM.IMPN ---
Progress Note: A&P Assessment and Plan (1) Closed subcapital fracture of left femur: Qualifiers: Encounter type: initial encounter Qualified Code(s): S72.012A - Unspecified intracapsular fracture of left femur, initial encounter for closed fracture Code(s): S72.012A - Unspecified intracapsular fracture of left femur, initial encounter for closed fracture Status: Acute Assessment and Plan: x-ray revealing subcapital left femoral neck fracture. Orthopedics consulted. Postop day 1 left hip pinning Analgesics p.r.n.. DVT prophylaxis , PT and OT per orthopedic surgeon. Patient likely need placement. (2) COPD (chronic obstructive pulmonary disease) with chronic bronchitis: Code(s): J44.9 - Chronic obstructive pulmonary disease, unspecified Status: Acute Assessment and Plan: Stable. Simon Recommend postoperative spirometry. 05/25: Patient requiring supplemental oxygenation will request home O2 eval and check chest x-ray today (3) Hypothyroidism (acquired): Code(s): E03.9 - Hypothyroidism, unspecified Status: Acute Assessment and Plan: Synthroid resumed (4) Gastroesophageal reflux disease: Code(s): K21.9 - Gastro-esophageal reflux disease without esophagitis Status: Acute Assessment and Plan: Protonix 40 mg daily for GI prophylaxis. (5) Mixed hyperlipidemia: Code(s): E78.2 - Mixed hyperlipidemia Status: Acute Assessment and Plan: Continue home medication once reconciled. Plan Patient waiting placement decision. Chest x-ray today. Home O2 eval. Time Spent With Patient Time with patient: 25 - 35 minutes Subjective Date/time seen: 05/25/23 12:10 Interval history: Patient sitting up in bed. Notes pain. He states he got up twice yesterday and walked to the bathroom. Pain with ambulating. He did have to use a sarasteady. No numbness or tingling. Participating well with therapy. Slightly confused. Review of Systems Review of Systems: All systems reviewed & are unremarkable except as noted in HPI and below Exam Narrative: GENERAL: Comfortable, no acute distress, somewhat confused which RN states is baseline HENMT: moist mucous membranes EYES: EOM intact b/l NECK: no lymphadenopathy RESPIRATORY: Slight dyspnea exertion, mild tachycardia, coarse lung sounds throughout without definite rhonchi or wheeze, supplemental oxygenation in place CARDIO: RRR GI: soft, nontender, bowel sounds present SKIN: no rashes EXTREMITIES: no edema or redness; Pain over left hip. Objective Data Vital Signs Vital Signs: Vital Signs - 24 hr 05/24/23 16:00 05/24/23 20:00 05/24/23 20:00 Temperature 36.8 C 36.3 C L Pulse Rate 91 91 96 Respiratory Rate 26 H 26 H 16 Blood Pressure 117/71 119/60 Pulse Oximetry 96 96 94 Oxygen Delivery Nasal Cannula Oxygen Flow Rate 2 Fraction of Inspired Oxygen 32 05/25/23 00:00 05/25/23 04:00 05/25/23 08:26 Temperature 36.2 C L 35.9 C L Pulse Rate 100 95 Respiratory Rate 20 20 Blood Pressure 125/72 126/90 Pulse Oximetry 92 93 95 Oxygen Delivery Nasal Cannula Oxygen Flow Rate 1.5 Fraction of Inspired Oxygen 05/25/23 08:00 Temperature 36.2 C L Pulse Rate 88 Respiratory Rate 20 Blood Pressure 159/74 H Pulse Oximetry 96 Oxygen Delivery Oxygen Flow Rate Fraction of Inspired Oxygen Intake/Output Intake/Output: Intake & Output 05/22/23 05/23/23 05/24/23 05/25/23 23:59 23:59 23:59 23:59 Intake Total 510 872 6538 390 Output Total 1000 325 400 Balance 160 -530 1956 Meds/Results Medications: Active Medications Generic Name Dose Route Start Last Admin Trade Name Freq PRN Reason Stop Dose Admin Acetaminophen 650 mg 05/22/23 11:59 Acetaminophen 325 Mg Tablet PO Q4H PRN Headache Acetaminophen 1,000 mg 05/23/23 19:00 05/25/23 05:49 Acetaminophen 500 Mg Ta
[2023-05-25] MEDS: FUROSEMIDE INJ 40 MG/4 ML VIAL IV PUSH (17:27)
[2023-05-25] MEDS: POTASSIUM CHLORIDE 20 MEQ ER TABLET 40 MEQ PO (17:27)
[2023-05-25] MEDS: rOPINIRole HCL 1 MG TABLET 4 MG PO (21:58)
[2023-05-25] MEDS: LORATADINE 10 MG TABLET PO (21:59)
[2023-05-25] MEDS: AMITRIPTYLINE HCL 10 MG TABLET PO (21:59)
[2023-05-25] MEDS: HYDROcodone/acetaminophen (*CRX) 5-325 MG TABLET 1 TAB PO (23:42)
[2023-05-26 03:30] VITALS: BP 151/83; PULSE 93; RESP 18; TEMP 36.3; O2SAT 97
[2023-05-26] MEDS: LEVOTHYROXINE SODIUM 150 MCG TABLET PO (05:30)
[2023-05-26] MEDS: ACETAMINOPHEN 500 MG TABLET 1000 MG PO ×2 (05:30→12:53)
[2023-05-26 06:33] LABS: Basophils Absolute Auto 0.1 K/mm3 (0.0-0.1); Basophils Percent Auto 0.6 % (0.2-1.2); Eosinophils Absolute Auto 0.3 K/mm3 (0-0.3); Eosinophils Percent Auto 3.2 % (0-4.4); Hematocrit 46.1 % (42.0-52.0); Hemoglobin 15.9 g/dL (14.0-18.0); Immature Granulocyte Absolute 0.04 K/mm3 (0.00-0.031); Immature Granulocyte Percent A 0.4 % (0-0.5); Immature Platelet Fraction Pct 2.6 % (0.9-11.2); Lymphocytes Absolute Auto 3.58 K/mm3 (0.9-3.2); Lymphocytes Percent Auto 38.6 % (18.3-44.2); Mean Corpuscular HGB Conc 34.5 g/dl (32-36); Mean Corpuscular Hemoglobin 32.4 pg (26-34); Mean Corpuscular Volume 94.1 fl (80-100); Mean Platelet Volume 8.9 fl (7.4-10.4); Monocytes Absolute Auto 1.3 K/mm3 (0.1-0.6); Monocytes Percent Auto 14.3 % (2.6-8.5); Neutrophils Percent Auto 42.9 % (45.5-73.1); Platelet Count Result 152 k/mm3 (150-375); Red Cell Distribution Width 13.5 % (11.5-14.5); White Blood Count 9.3 K/mm3 (4.5-10.0)
[2023-05-26 06:47] LABS: Alanine Aminotransferase 18 U/L (6-50); Albumin Level 3.5 g/dL (3.5-5.1); Alkaline Phosphatase 102 U/L (38-126); Anion Gap 5 mmol/L (8-16); Aspartate Amino Transferase 33 U/L (17-59); Bilirubin,Total 2.4 mg/dL (0.2-1.3); Blood Urea Nitrogen 18 mg/dL (9-20); Calcium 8.4 mg/dL (8.4-10.2); Carbon Dioxide 31 mmol/L (22-30); Chloride 94 mmol/L (98-107); Estimated CRCL calculation 53 ml/min; Estimated Glomerular Filt Rate > 60; Glucose 103 mg/dL (65-110); Potassium 3.5 mmol/L (3.4-5.0); Sodium 130 mmol/L (137-145)
--- NOTE | 2023-05-26 07:24 | PM.PNORT ---
Progress Note: A&P Assessment and Plan (1) Closed subcapital fracture of left femur: Qualifiers: Encounter type: initial encounter Qualified Code(s): S72.012A - Unspecified intracapsular fracture of left femur, initial encounter for closed fracture Code(s): S72.012A - Unspecified intracapsular fracture of left femur, initial encounter for closed fracture Status: Acute Assessment and Plan: POD #3 Percutaneous pinning with 3 cannulated screws. Patient doing well. Pain controlled with medications. He has had PT/OT and tolerating it. He has been able to get up and walk to the bathroom. Discussed plan with the patient and son. Will plan on rehab for 4-6 weeks. Partial weight bearing with a walker. He will follow up in office in 4-6 weeks. We discussed wound care and plan again. Patient and son are agreeable. Will continue to follow. Okay for discharge once medically clear. Patient also has a contusion of the left shoulder. Moderate shoulder arthritis with subtle calcification on the left shoulder likely secondary to the chronic arthritis. He is able to move the shoulder today without pain. Ortho instructions: D/C to SNF/rehab Follow up in office in 4-6 weeks with xrays. Wound Care: Remove Mepilex dressing at 7 days post op. Remove steristrips at 14 days post op. May shower. No soaking. PT:Partial weight bearing with a walker. DVT prophylaxis: continue Lovenox for 30 days total (2) Contusion of left shoulder: Qualifiers: Encounter type: initial encounter Qualified Code(s): S40.012A - Contusion of left shoulder, initial encounter Code(s): S40.012A - Contusion of left shoulder, initial encounter Status: Acute Subjective Subjective Date/Time Seen: 05/26/23 07:24 Interval history: Patient resting comfortably in bed. No acute distress. Pain controlled with medications. Review of Systems Review of Systems: All systems reviewed & are unremarkable except as noted in HPI and below Exam Narrative: Overweight 88 y/o Male. Resting comfortably in chair. Dressing dry and intact with no drainage. Moderate swelling. No edema. No ecchymosis. No erythema. No hematoma. Range of motion limited due to pain. Calf nontender. Thigh nontender. No varicosities. Distal pulses palpable. Wiggles toes. Good plantar flexion and dorsiflexion strength. Objective Data Vital Signs Vital Signs: Vital Signs - 24 hr 05/25/23 08:26 05/25/23 08:00 05/25/23 12:00 Temperature 97.1 F L 96.7 F L Pulse Rate 88 96 Respiratory Rate 20 22 H Blood Pressure 159/74 H 142/81 H Pulse Oximetry 95 96 94 Oxygen Delivery Nasal Cannula Oxygen Flow Rate 1.5 Fraction of Inspired Oxygen 05/25/23 08:00 05/25/23 16:00 05/25/23 20:00 Temperature 98.1 F 97.9 F Pulse Rate 96 90 96 Respiratory Rate 22 H 16 20 Blood Pressure 103/51 L 133/76 Pulse Oximetry 94 94 92 Oxygen Delivery Nasal Cannula Oxygen Flow Rate 1.5 Fraction of Inspired Oxygen 32 05/25/23 23:12 05/25/23 20:00 05/26/23 03:30 Temperature 97.7 F 97.3 F L Pulse Rate 99 93 Respiratory Rate 18 18 18 Blood Pressure 119/77 151/83 H Pulse Oximetry 91 91 97 Oxygen Delivery Nasal Cannula Oxygen Flow Rate 2 Fraction of Inspired Oxygen 32 Intake/Output Intake/Output: Intake & Output 05/23/23 05/24/23 05/25/23 05/26/23 23:59 23:59 23:59 23:59 Intake Total 470 2282 750 Output Total 1000 744 769 0948 [facility] [phone] Meds/Results Medications: Active Medications Generic Name Dose Route Start Last Admin Trade Name Freq PRN Reason Stop Dose Admin Acetaminophen 650 mg 05/22/23 11:59 Acetaminophen 325 Mg Tablet PO Q4H PRN Headache Acetaminophen 1,000 mg 05/23/23 19:00 05/26/23 05:30 Acetaminophen 500 Mg Tablet PO 1,000 mg Q6H FREDERICK Administration Hydrocodone Bitart/Acetaminophen 1 tab 05/22/23 11:59 05/25/23 23:42 Hydrocodone/Acetaminophen (*Crx) 5-325
[2023-05-26 08:00] VITALS: O2SAT 93
[2023-05-26] MEDS: PANTOPRAZOLE SODIUM IV 40 MG VIAL IV PUSH (09:16)
[2023-05-26] MEDS: CHOLECALCIFEROL 1,000 UNITS TABLET 5000 UNITS PO (09:16)
[2023-05-26] MEDS: hydrALAZINE HCL 25 MG TABLET PO ×2 (09:17→12:53)
[2023-05-26] MEDS: ENOXAPARIN 40 MG/0.4 ML SYRINGE SUB-Q (09:17)
[2023-05-26] MEDS: FAMOTIDINE 20 MG TABLET PO (09:17)
[2023-05-26] MEDS: SENNA/DOCUSATE SODIUM TABLET 2 TAB PO (09:17)
[2023-05-26] MEDS: FUROSEMIDE 40 MG TABLET PO (09:18)
[2023-05-26] MEDS: prednisoLONE ACETATE 1% OPHTH 5 ML 1 DROP EACH EYE (09:18)
[2023-05-26] MEDS: polyethylene glycoL 3350 17 GM POWD.PACK PO (09:18)
[2023-05-26] MEDS: GABAPENTIN 100 MG CAPSULE PO (09:18)
[2023-05-26] MEDS: KETOROLAC 0.5% OP SOLN 5 ML BOTTLE 1 DROP RIGHT EYE (09:19)
[2023-05-26] MEDS: MOXIFLOXACIN HCL 0.5% 3 ML OPHTH SOLN 1 DROP RIGHT EYE ×2 (09:21→12:53)
[2023-05-26] MEDS: LOTEPREDNOL ETABONATE 0.5% OPH 5 ML BOTTLE 1 DROP LEFT EYE (09:22)
--- NOTE | 2023-05-26 10:18 | PM.DS ---
DS: Admitting Diagnosis Discharge Date 05/26/23 Admitting Diagnosis Closed subcapital fracture of left femur DS: Discharge Diagnosis Discharge Diagnosis (1) Closed subcapital fracture of left femur: Qualifiers: Encounter type: initial encounter Qualified Code(s): S72.012A - Unspecified intracapsular fracture of left femur, initial encounter for closed fracture Code(s): S72.012A - Unspecified intracapsular fracture of left femur, initial encounter for closed fracture Status: Acute (2) COPD (chronic obstructive pulmonary disease) with chronic bronchitis: Code(s): J44.9 - Chronic obstructive pulmonary disease, unspecified Status: Acute (3) Hypothyroidism (acquired): Code(s): E03.9 - Hypothyroidism, unspecified Status: Acute (4) Gastroesophageal reflux disease: Code(s): K21.9 - Gastro-esophageal reflux disease without esophagitis Status: Acute (5) Mixed hyperlipidemia: Code(s): E78.2 - Mixed hyperlipidemia Status: Acute DS: Summary Hospital Course Reason for hospitalization: S/P Fall Hospital Course: This is an 88-year-old male presented to the ED after sustaining a fall home on 05/22/2023. Patient immediately had pain in the left hip post fall and presented to the ED. ED workup included CT of the brain without contrast which revealed chronic age related changes, no acute changes. Patient also had a CT the cervical spine without contrast which showed severe cervical spondylosis without acute findings. Patient also had x-ray of the left shoulder which shown possible small fracture along the inferior margin of the glenoid, but after further evaluation by Ortho this was felt to be osteoarthritic changes. X-ray of the left hip showed acute subcapital left femoral neck fracture. Ortho was consulted and following patient. On 05/23/23 patient was taken to the OR with Ortho for percutaneous pinning with 3 cannulated screws of the left femoral neck fracture. After OR procedure patient became a bit tachypneic requiring oxygen and extra diuresis during this hospital stay. According to Ortho recommendation patient will be partial weight-bearing with a walker and required a SNF placement. Approval for SNF was arranged for today to discharge. Patient's Son was present in the room and willing to take patient to SNF. Plan is for patient to receive 4-6 weeks therapy and follow-up with Ortho in 6 weeks for re-evaluation. He will continue with diuresis and received an extra dose of Lasix for the next couple of days and then return to his once a day dosing. He was also discharged with oxygen orders at the SNF for use at night and PRN. Status at Discharge Cognitive/behavioral status at discharge: Awake, alert, oriented x3 Time Spent with Patient Time attestation: Total time spent providing and/or coordinating discharge services: Time spent: Greater than 30 minutes Exam Narrative: GENERAL: Comfortable, no acute distress HENMT: moist mucous membranes EYES: EOM intact b/l NECK: no lymphadenopathy RESPIRATORY: Lungs clear to auscultation, no dyspnea present. Patient now off oxygen requirements. CARDIO: RRR GI: soft, nontender, bowel sounds present SKIN: no rashes EXTREMITIES: no edema or redness; Pain over left hip. DS: Data Data Completed and Pending Completed studies during hospitalization: Head CT Abdominal X-ray Cervical spine CT Shoulder x-ray Hip/Pelvis x-ray Pending studies at discharge: None Labs on day of discharge: Labs from last 24 hours 05/26/23 06:07 WBC 9.3 RBC 4.90 Hgb 15.9 Hct 46.1 MCV 94.1 MCH 32.4 MCHC 34.5 RDW 13.5 Plt Count 152 MPV 8.9 Immature Gran % (Auto) 0.4 Neut % (Auto) 42.9 L Lymph % (Auto) 38.6 [place] % (Auto) 14.3 H Eos % (Auto) 3.2 Baso % (Auto) 0.6 Lymph # (Auto) 3.58 H [place] # (Auto) 1.3 H Eos # (Auto) 0.3 Baso # (Auto) 0.1 Abs Immat Gran (auto) 0.04 H Absolute Neuts (auto) 4.0
[2023-05-26 14:29] LABS: SARS-CoV-2 RNA PCR Negative (Negative)
== END 2023-05-26 14:55 | DRG 482 ==
LOC: ANHED 08:37 → ANH3MEDSUR 08:48
PROVIDERS: Internal Medicine Critical Care Medicine; Orthopaedic Surgery; Physician Assistant Surgical; Admitting Provider Internal Medicine; Emergency Provider Preventive Medicine Aerospace Medicine; PCP Internal Medicine; Visit Provider Nurse Practitioner
PROC: 0QH734Z Insertion of Internal Fixation Device into Left Upper Femur, Percutaneous Approach (ICD-10-PCS; principal; 2023-05-23 17:00)
DX: S72.012A Unspecified intracapsular fracture of left femur, initial encounter for closed fracture (principal); S40.012A Contusion of left shoulder, initial encounter; J44.9 Chronic obstructive pulmonary disease, unspecified; W01.10XA Fall on same level from slipping, tripping and stumbling with subsequent striking against unspecified object, initial encounter; E03.9 Hypothyroidism, unspecified; I11.9 Hypertensive heart disease without heart failure; I35.0 Nonrheumatic aortic (valve) stenosis; Z20.822 Contact with and (suspected) exposure to COVID-19; Z96.611 Presence of right artificial shoulder joint; K21.9 Gastro-esophageal reflux disease without esophagitis; Z96.659 Presence of unspecified artificial knee joint; M19.012 Primary osteoarthritis, left shoulder; R06.82 Tachypnea, not elsewhere classified; G25.81 Restless legs syndrome; E78.2 Mixed hyperlipidemia; E66.9 Obesity, unspecified; Z68.32 Body mass index [BMI] 32.0-32.9, adult; Z85.51 Personal history of malignant neoplasm of bladder
CPT/HCPCS: 36415; 70450; 71045; 72125; 73030; 73502; 80048; 80053; 85025; 85027; 85055; 85610; 85730; 86850; 86900; 86901; 87635; 93005; 94640; 96374; 96376; 97110; 97116; 97161; 97165; 97530; 97535; 99199; 99285; A9270; C1713; C1769; C9113; G0378; J0690; J1650; J1940; J2270; J2405; J2704; J3010; J7030; J7120

== ENCOUNTER 2023-07-24 09:05 | Emergency (ER) | payer MEDICARE, SELFPAY ==
--- NOTE | ~2023-07-24 | XR_ITS ---
EXAMINATION: XR hip RT 2V w AP pelvis DATE: 07/24/2023 09:55 INDICATION: Right hip pain post fall TECHNIQUE: Anteroposterior view of the pelvis and anteroposterior and frog-leg lateral views of the r ight hip were obtained. COMPARISON: 06/27/2023 FINDINGS: Mild rightward tilt of the lower lumbar spine relative to the axis of the pelvis. Alignment is otherw ise normal. Leg screw fixation at the left femoral head and neck for a relatively recent laterally im pacted subcapital fracture of the proximal left femur. No acute fracture identified. There is chondro calcinosis and mild osteoarthritis at the bilateral hips, right greater than left. There is also mild osteoarthritis at the bilateral sacroiliac joints and moderate lower lumbar spondylosis. IMPRESSION: 1. Lag screw fixation of a relatively recent subcapital fracture of the proximal left femur. No acute osseous abnormality. Reviewed, dictated and finalized at location A. [employer] IMPRESSION: 1. Lag screw fixation of a relatively recent subcapital fracture of the proxima l left femur. No acute osseous abnormality.
--- NOTE | ~2023-07-24 | XR_ITS ---
EXAMINATION: XR thoracic spine 3V DATE: 07/24/2023 09:55 INDICATION: Mid back pain post fall TECHNIQUE: One AP, lateral and lateral swimmer's views of the thoracic spine were obtained. COMPARISON: Two-view chest radiograph dated 10/18/2016 FINDINGS: Unchanged mild thoracic kyphosis. 70 degrees lower thoracic levoscoliosis. Associated compensatory up per thoracic dextrocurvature and lumbar dextrocurvature. Chronic right-sided vertebral body height lo ss at T7, T8 and T9. There is also mild to moderate disc height loss along the concave left side of t he upper thoracic, concave right side of the mid to lower thoracic and concave left side of the lumba r spine. No acute fractures identified. Cholecystectomy clips in the right upper quadrant. Again seen is a right shoulder arthroplasty. Lung volumes are small with no focal airspace opacities, pleural e ffusion or pneumothorax. Heart size is normal. 6 mm stone projecting over the lower pole of the right kidney. IMPRESSION: 1. 70 degrees lower lumbar levoscoliosis with compensatory cervicothoracic and lumbar dextrocurvature . 2. Chronic right-sided vertebral body height loss at T7, T8 and T9. No evident acute osseous abnormal ity. 3. Moderate thoracic and lumbar spondylosis. 4. 6 mm right renal stone. Reviewed, dictated and finalized at location A. CAND[employer] CUTTER IMPRESSION: 1. 70 degrees lower lumbar levoscoliosis with compensatory cervicothoracic and lumbar dextrocurvature. 2. Chronic right-sided vertebral body height loss at T7, T8 and T9. No evident acute osseous abnormality. 3. Moderate thoracic and lumbar spondylosis. 4. 6 mm right renal stone.
[2023-07-24 09:20] VITALS: BP 143/76; PULSE 102; RESP 16; TEMP 36.8; O2SAT 99
--- NOTE | 2023-07-24 09:22 | ED.FALL ---
HPI - Fall General Chief Complaint: Fall Stated Complaint: fall - back & hip pain Time Seen by Provider: 07/24/23 09:22 Source: patient and family Mode of arrival: ambulatory Limitations: no limitations History of Present Illness HPI Narrative: Serge is a 88-year-old male patient presenting to the clinic today with complaints of a ground level fall. He reports this morning he was putting on his T-shirt and loss his balance and fell backwards on his right hip and back. He is having pain to the mid thoracic back as well as over the right posterior hip. History of rods in his hips bilaterally. Denies hitting his head, neck pain, or any loss of consciousness. Was able to get up on his own after falling. Related Data Home Medications Medication Instructions Recorded Confirmed prednisolone acetate 1 % eye 1 drop ophthalmic (eye) Q12H 01/21/20 06/28/23 drops,suspension (Pred Forte) cholecalciferol (vitamin D3) 125 125 mcg PO DAILY 04/14/20 06/28/23 mcg (5,000 unit) capsule albuterol sulfate 2.5 mg/3 mL 2.5 mg DIRECTED 03/12/22 06/28/23 (0.083 %) solution for nebulization albuterol sulfate 90 mcg/actuation 90 mcg inhalation DIRECTED 03/12/22 06/28/23 aerosol inhaler budesonide 160 mcg-glycopyr 9 2 inh inhalation BID 03/12/22 06/28/23 mcg-formot 4.8 mcg/actuation HFA inhaler (Breztri Aerosphere) omeprazole 40 mg capsule,delayed 40 mg PO DAILY 03/12/22 06/28/23 release furosemide 40 mg tablet 40 mg PO DAILY 01/13/23 06/28/23 gabapentin 100 mg capsule 100 mg PO DAILY 01/13/23 06/28/23 hydralazine 25 mg tablet 25 mg PO TID 01/13/23 06/28/23 amitriptyline 10 mg tablet 10 mg PO HS 05/22/23 06/28/23 levocetirizine 5 mg tablet 5 mg PO HS 05/22/23 06/28/23 levothyroxine 125 mcg tablet 150 mcg PO DAILY 05/22/23 06/28/23 loteprednol etabonate 0.5 % eye 1 drp LEFT EYE BID 05/22/23 06/28/23 drops,suspension moxifloxacin 0.5 % eye drops 1 drp RIGHT EYE QID 05/22/23 06/28/23 (Vigamox) ropinirole 4 mg tablet 4 mg PO HS 05/22/23 06/28/23 Allergies Allergy/AdvReac Type Severity Reaction Status Date / Time Penicillins Allergy Intermediate sweating Verified 05/23/23 15:28 Sulfa (Sulfonamide AdvReac Severe throat Verified 05/23/23 15:28 Antibiotics) swelling Review of Systems Review of Systems: Pertinent positives per HPI. Patient denies any fever, chills, rash, headache, visual changes, dizziness, cough, runny nose, sore throat, shortness of breath, chest pain, palpitations, nausea, vomiting, diarrhea, constipation, abdominal pain, or any urinary issues. 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 Smoked for about 40 years. Two packs a day. occasional alcohol use in the past but has not used in 20 some years. No history of drug use. Smoking status: Former smoker Second hand tobacco smoke exposure: No Alcohol intake: former Substance use: never Lack of Transportation: No Lack of Food: Never True Current Housing: I Have Housing Concerned About Future Housing: No Difficulty Paying Gas/Electric Bills: No Di
[2023-07-24 10:50] VITALS: BP 140/75; PULSE 100; RESP 16; O2SAT 99
[2023-07-24] MEDS: HYDROcodone/acetaminophen (*CRX) 5-325 MG TABLET 1 TAB PO (11:08)
== END 2023-07-24 11:15 | disposition home or self-care (01) ==
PROVIDERS: Emergency Provider Nurse Practitioner Family; PCP Internal Medicine
DX: S79.911A Unspecified injury of right hip, initial encounter (principal); S29.9XXA Unspecified injury of thorax, initial encounter; J44.9 Chronic obstructive pulmonary disease, unspecified; I11.9 Hypertensive heart disease without heart failure; I35.0 Nonrheumatic aortic (valve) stenosis; E03.9 Hypothyroidism, unspecified; H54.61 Unqualified visual loss, right eye, normal vision left eye; Z96.611 Presence of right artificial shoulder joint; Z98.49 Cataract extraction status, unspecified eye; Z96.659 Presence of unspecified artificial knee joint; Z94.7 Corneal transplant status; Z85.51 Personal history of malignant neoplasm of bladder; Z87.891 Personal history of nicotine dependence; N20.0 Calculus of kidney; M47.816 Spondylosis without myelopathy or radiculopathy, lumbar region; M47.814 Spondylosis without myelopathy or radiculopathy, thoracic region; W18.39XA Other fall on same level, initial encounter
CPT/HCPCS: 72072; 73502; 99284; A9270

== ENCOUNTER 2023-09-26 12:17 | Inpatient (IN) | payer MEDICARE, SELFPAY ==
--- NOTE | ~2023-09-26 | XR_ITS ---
EXAMINATION: XR knee LT min 4V DATE: 09/26/2023 12:50 INDICATION: Left knee pain TECHNIQUE: Anteroposterior, 2 oblique and crosstable lateral views of the left knee were obtained COMPARISON: None. FINDINGS: Left total knee arthroplasty with patellar resurfacing which appears well seated in near-anatomic ali gnment. No fracture. No periprosthetic lucency to suggest loosening or infection. Small left knee marybeth nt effusion without layering lipohemarthrosis. Soft tissues are unremarkable. IMPRESSION: 1. Left total knee arthroplasty with small joint effusion but no acute osseous abnormality. Reviewed, dictated and finalized at location A. TOR MACHINE OPERATOR
--- NOTE | ~2023-09-26 | XR_ITS ---
EXAMINATION: XR hip LT 2V w AP pelvis DATE: 09/26/2023 12:51 INDICATION: Severe left hip pain TECHNIQUE: Anteroposterior view of the pelvis and anteroposterior and frog leg lateral views of the l eft hip were obtained. COMPARISON: 07/24/2023, 06/27/2023 and 05/22/2023 FINDINGS: Again seen is a now early chronic subcapital fracture of the proximal left femur which is fixed with 3 cannulated lag screws, one with an additional washer. Alignment remains near-anatomic. No change in position of the fixation screws or surrounding lucency to suggest loosening or infection. No acute f racture. Chondrocalcinosis at both hips. Mild polyarticular osteoarthritis at the bilateral hip and s acroiliac joints. Moderate lower lumbar spondylosis. IMPRESSION: 1. No significant interval change in an internally fixed now early chronic subcapital fracture of the proximal left femur which remains in near-anatomic alignment. 2. Moderate lower lumbar spondylosis and mild osteoarthritis at the bilateral hip and sacroiliac join ts. Reviewed, dictated and finalized at location A. MANAGER IMPRESSION: 1. No significant interval change in an internally fixed now early chronic subc apital fracture of the proximal left femur which remains in near-anatomic align ment. 2. Moderate lower lumbar spondylosis and mild osteoarthritis at the bilateral h ip and sacroiliac joints.
--- NOTE | ~2023-09-26 | XR_ITS ---
XR lumbar spine min 4V DATE: 09/26/2023 14:44 INDICATION: Left low back pain for 4 days. No injury. TECHNIQUE: AP, lateral, bilateral oblique views, coned lateral lumbosacral view COMPARISON: None FINDINGS: Examination is limited due to lack of true lateral views and the prominent rotatory dextros coliosis. There is approximately 43 degrees rotatory dextroscoliosis measured from T12 to L4. There is approximately 40% loss of height at the left side and 35% loss of height at the anterior asp ect of L3 compared to L4 due to likely chronic compression fracture deformity. The L3 fracture was no t present on 07/11/2018 CT abdomen pelvis examination. No other fracture is readily evident on this limited examination. Multilevel moderate to moderately severe degenerative disc disease. Diffuse osteopenia. The sacroiliac joints are intact. Three lag screws are noted extending through the intertrochanteric area and to the left femoral head. Status post cholecystectomy. Abdominal aortic calcification, without apparent aneurysm. IMPRESSION: Diffuse osteopenia 40+ degrees lumbar rotatory dextroscoliosis Compression fracture deformity of L3 Multilevel degenerative disc disease Reviewed, dictated and finalized at location B. T MECHANIC
--- NOTE | ~2023-09-26 | MR_ITS ---
MRI of the brain Clinical History: Altered mental status Technique: Axial and sagittal T1-weighted images were acquired. These were followed by axial T2-weigh gillian, diffusion weighted, gradient, and FLAIR images. Following intravenous administration of 14 cc Mu ltiHance gadolinium, T1-weighted fat-sat imaging was performed in the axial and coronal planes. Findings: There is no acute infarct, intracranial hemorrhage, or mass lesion. There are mild to moder ate chronic white matter changes in the periventricular white matter bilaterally. There is chronic en cephalomalacia at the right frontal lobe at the olfactory region. Ventricles and subarachnoid spaces are dilated. Orbits are unremarkable. Paranasal sinuses and mastoi d air cells are clear. Major intracranial flow voids are intact. Sagittal midline structures appear intact. No abnormal postcontrast enhancement identified. IMPRESSION: Mild to moderate chronic microvascular ischemic change and mild to moderate generalized atrophy. Chronic encephalomalacia right olfactory region. Correlate for old infarct or chronic posttraumatic c hange. Reviewed, dictated and finalized at location . AIDE IMPRESSION: Mild to moderate chronic microvascular ischemic change and mild to moderate gen eralized atrophy. Chronic encephalomalacia right olfactory region. Correlate for old infarct or c hronic posttraumatic change.
--- NOTE | ~2023-09-26 | CT_ITS ---
EXAMINATION: CT brain wo con INDICATION: Confusion and slurred speech COMPARISON: 05/22/2023 TECHNIQUE: Standard unenhanced head CT. The dose-length product (DLP) was 681.00 mGy-cm. The mA was a djusted according to patient size. Iterative reconstruction technique was employed. FINDINGS: No acute intraparenchymal hemorrhage. No evidence of mass lesion. No evidence of acute infa rction. A chronic area of encephalomalacia is again noted in the anterior/inferior aspect of the righ t frontal lobe. There is mild periventricular and subcortical hypodensity probably related to small v essel ischemic disease. There is mild prominence of the sulci and ventricles related to cerebral atro phy. Intracranial calcified cerebral atherosclerosis is noted. No extra-axial collections. No mass ef fect or midline shift. Changes in the globes are likely from ocular lens surgery. The visualized sinu ses and mastoid air cells are well aerated. IMPRESSION: 1. No acute intracranial abnormality. 2. Age related findings. Reviewed, dictated and finalized at location L. BOTOMIST MEDICAL LAB ASSISTANT
[2023-09-26 12:19] VITALS: BP 119/54; PULSE 94; RESP 16; TEMP 36.8; O2SAT 100
[2023-09-26 14:27] LABS: Basophils Absolute Auto 0.1 K/mm3 (0.0-0.1); Basophils Percent Auto 0.5 % (0.2-1.2); Eosinophils Absolute Auto 0.1 K/mm3 (0-0.3); Hematocrit 38.4 % (42.0-52.0); Immature Granulocyte Absolute 0.02 K/mm3 (0.00-0.031); Immature Granulocyte Percent A 0.2 % (0-0.5); Lymphocytes Absolute Auto 4.34 K/mm3 (0.9-3.2); Lymphocytes Percent Auto 47.2 % (18.3-44.2); Mean Corpuscular HGB Conc 33.9 g/dl (32-36); Mean Corpuscular Hemoglobin 32.7 pg (26-34); Mean Corpuscular Volume 96.7 fl (80-100); Mean Platelet Volume 8.3 fl (7.4-10.4); Monocytes Percent Auto 11.3 % (2.6-8.5); Neutrophils Absolute Auto 3.7 K/mm3 (1.3-6.7); Neutrophils Percent Auto 39.8 % (45.5-73.1); Platelet Count Result 144 k/mm3 (150-375); Red Blood Count 3.97 M/mm3 (4.6-6.20); Red Cell Distribution Width 12.3 % (11.5-14.5); White Blood Count 9.2 K/mm3 (4.5-10.0)
[2023-09-26 14:39] LABS: Alanine Aminotransferase 23 U/L (6-50); Albumin Level 3.6 g/dL (3.5-5.1); Alkaline Phosphatase 87 U/L (38-126); Anion Gap 4 mmol/L (8-16); Aspartate Amino Transferase 35 U/L (17-59); Bilirubin,Total 0.8 mg/dL (0.2-1.3); Blood Urea Nitrogen 22 mg/dL (9-20); Calcium 9.2 mg/dL (8.4-10.2); Carbon Dioxide 31 mmol/L (22-30); Chloride 97 mmol/L (98-107); Estimated CRCL calculation 50 ml/min; Estimated Glomerular Filt Rate > 60; Glucose 102 mg/dL (65-110); Potassium 3.7 mmol/L (3.4-5.0); Sodium 132 mmol/L (137-145)
--- NOTE | 2023-09-26 15:35 | ED.GENADULT ---
HPI - General Adult General Chief complaint: Extremity Injury, Lower Stated complaint: L KNEE PAIN Time Seen by Provider: 09/26/23 12:27 History of Present Illness HPI narrative: 88-year-old with a history of COPD ,status post left hip surgery secondary to hip fracture in April 2023 here with a complaint of left hip pain the pain and unable to walk for past 5 days . patient states it has been hurting him quite a bit in the last 2-3 days. He denies any recent falls. No history of fever or chills. Denies any nausea, vomiting or abdominal pain. Related Data Home Medications Medication Instructions Recorded Confirmed prednisolone acetate 1 % eye 1 drop ophthalmic (eye) Q12H 01/21/20 08/10/23 drops,suspension (Pred Forte) cholecalciferol (vitamin D3) 125 125 mcg PO DAILY 04/14/20 08/10/23 mcg (5,000 unit) capsule albuterol sulfate 2.5 mg/3 mL 2.5 mg DIRECTED 03/12/22 08/10/23 (0.083 %) solution for nebulization albuterol sulfate 90 mcg/actuation 90 mcg inhalation DIRECTED 03/12/22 08/10/23 aerosol inhaler budesonide 160 mcg-glycopyr 9 2 inh inhalation BID 03/12/22 08/10/23 mcg-formot 4.8 mcg/actuation HFA inhaler (Breztri Aerosphere) omeprazole 40 mg capsule,delayed 40 mg PO DAILY 03/12/22 08/10/23 release furosemide 40 mg tablet 40 mg PO DAILY 01/13/23 08/10/23 gabapentin 100 mg capsule 100 mg PO DAILY 01/13/23 08/10/23 hydralazine 25 mg tablet 25 mg PO TID 01/13/23 08/10/23 amitriptyline 10 mg tablet 10 mg PO HS 05/22/23 08/10/23 levocetirizine 5 mg tablet 5 mg PO HS 05/22/23 08/10/23 levothyroxine 125 mcg tablet 150 mcg PO DAILY 05/22/23 08/10/23 loteprednol etabonate 0.5 % eye 1 drp LEFT EYE BID 05/22/23 08/10/23 drops,suspension moxifloxacin 0.5 % eye drops 1 drp RIGHT EYE QID 05/22/23 08/10/23 (Vigamox) ropinirole 4 mg tablet 4 mg PO HS 05/22/23 08/10/23 Allergies Allergy/AdvReac Type Severity Reaction Status Date / Time Penicillins Allergy Intermediate sweating Verified 08/10/23 10:40 Sulfa (Sulfonamide AdvReac Severe throat Verified 08/10/23 10:40 Antibiotics) swelling prochlorperazine AdvReac Hives Verified 09/26/23 12:29 [From Compazine] Review of Systems Review of Systems: All systems reviewed & are unremarkable except as noted in HPI and below Constitutional: Constitutional: Reports no additional constitutional complaints Eyes: Eyes: Reports no additional eye complaints ENT: Reports system reviewed and no additional complaints, except as documented Cardiovascular: Cardiovascular: Reports no additional cardiovascular complaints Respiratory: Respiratory: Reports no additional respiratory complaints Gastrointestinal: Gastrointestinal: Reports no additional gastrointestinal complaints Musculoskeletal: Musculoskeletal: Reports as per HPI Neurologic: Reports system reviewed and no additional complaints, except as documented Psychiatric: Psychiatric: Reports no additional psychiatric complaints [facility] Past Medical History Medical History Benign positional vertigo Bladder cancer 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 Smoked for about 40 years. Two packs a day. occasiona
[2023-09-26 16:40] VITALS: BP 116/66; PULSE 85; RESP 18; O2SAT 100
--- NOTE | 2023-09-26 17:19 | PM.IMHP ---
H&P: HPI History of Present Illness Date/Time: 09/26/23 17:19 Chief Complaint: Difficulty with walking Narrative: 88-year-old with a history of multiple comorbidities including hypertension, hyperlipidemia, hypothyroidism, COPD left hip fracture,,status post left hip surgery secondary to hip fracture in April 2023 brought to ED because of difficulty with ambulation, severe pain of left hip. Patient denies fall, patient has been having progressive pain of left hip. Patient cannot bear weight on the left leg. Patient denies a fever, chills, cough, shortness breast any nausea, vomiting or abdominal pain. Upon arrival in the ED, patient is afebrile, blood pressure stable but on lower side, pulse ox 100% on room air, labs showed anemia 13, hyponatremia 132, elevated BUN creatinine ratio 22/0.8 x-ray of hip shows no acute fracture. 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 Smoked for about 40 years. Two packs a day. occasional alcohol use in the past but has not used in 20 some years. No history of drug use. Smoking status: Former smoker Second hand tobacco smoke exposure: No Alcohol intake: former Substance use: never Lack of Transportation: No Lack of Food: Never True Current Housing: I Have Housing Concerned About Future Housing: No Difficulty Paying Gas/Electric Bills: No Difficulty Paying for Meds: No Currently Unemployed: No Education: Trade/Vocational Certificate Difficulty w/ Childcare or Family Care: No Gender identity (if verbalized by the patient): Male Spiritual care concerns: No Meds Home Medications and Allergies Home Medications Medication Instructions Recorded Confirmed Type prednisolone acetate 1 % eye 1 drop ophthalmic (eye) Q12H 01/21/20 08/10/23 History drops,suspension (Pred Forte) cholecalciferol (vitamin D3) 125 125 mcg PO DAILY 04/14/20 08/10/23 History mcg (5,000 unit) capsule atorvastatin 20 mg tablet 20 mg PO DAILY 90 days #90 tabs 12/15/20 08/10/23 Rx albuterol sulfate 2.5 mg/3 mL 2.5 mg DIRECTED 03/12/22 08/10/23 History (0.083 %) solution for nebulization albuterol sulfate 90 mcg/actuation 90 mcg inhalation DIRECTED 03/12/22 08/10/23 History aerosol inhaler budesonide 160 mcg-glycopyr 9 2 inh inhalation BID 03/12/22 08/10/23 History mcg-formot 4.8 mcg/actuation HFA inhaler (Breztri Aerosphere) omeprazole 40 mg capsule,delayed 40 mg PO DAILY 03/12/22 08/10/23 History release ketorolac 0.5 % eye drops 1 drp RIGHT EYE Q6H PRN itching #3 12/13/22 08/10/23 Rx mL furosemide 40 mg tablet 40 mg PO DAILY 01/13/23 08/10/23 History gabapentin 100 mg capsule 100 mg PO DAILY 01/13/23 08/10/23 History hydralazine 25 mg tablet 25 mg PO TID 01/13/23 08/10/23 History amitriptyline 10 mg tablet 10 mg PO HS 05/22/23 08/10/23 History levocetirizine 5 mg tablet 5 mg PO HS 05/22/23 08/10/23 History levo
--- NOTE | 2023-09-26 17:30 | ADMGEN ---
This patient, Serge Linares, was admitted to [facility] Surg Room 332-02. Patient/family oriented to hospital policies and general routines including ID bracelet, bed and alarms, visiting hours, pain management, procedures, bathroom and other care routines, personal items, smoking policy, room service/diet, and visiting hours. Information on how to activate the Rapid Response Team has been discussed. Patient/Family are encouraged to report perceived risks to care and to ask questions if they do not understand what they are told or what they should do.
--- NOTE | 2023-09-26 17:30 | ADMGEN ---
This patient, Serge Linares, was admitted to [facility] Surg Room 332-01. Patient/family oriented to hospital policies and general routines including ID bracelet, bed and alarms, visiting hours, pain management, procedures, bathroom and other care routines, personal items, smoking policy, room service/diet, and visiting hours. Information on how to activate the Rapid Response Team has been discussed. Patient/Family are encouraged to report perceived risks to care and to ask questions if they do not understand what they are told or what they should do.
[2023-09-26 22:00] VITALS: BP 136/73; PULSE 99; RESP 20; TEMP 36.4; O2SAT 100
[2023-09-26] MEDS: HYDROcodone/acetaminophen (*CRX) 5-325 MG TABLET 1 TAB PO (23:56)
[2023-09-27] MEDS: HYDROcodone/acetaminophen (*CRX) 5-325 MG TABLET 1 TAB PO (03:59)
[2023-09-27] MEDS: LEVOTHYROXINE SODIUM 125 MCG TABLET PO (05:42)
[2023-09-27 06:00] VITALS: BP 158/91; PULSE 99; RESP 18; TEMP 36.9; O2SAT 100
[2023-09-27] MEDS: PANTOPRAZOLE 40 MG TABLET PO (09:21)
[2023-09-27 09:30] VITALS: PULSE 97; O2SAT 97
[2023-09-27] MEDS: ACETAMINOPHEN 325 MG TABLET 650 MG PO (13:43)
[2023-09-27 14:00] VITALS: BP 123/75; PULSE 83; RESP 18; TEMP 36.3; O2SAT 98
--- NOTE | 2023-09-27 14:51 | PM.IMPN ---
Progress Note: A&P Assessment and Plan (1) Hip joint pain: Qualifiers: Laterality: left Qualified Code(s): M25.552 - Pain in left hip Code(s): M25.559 - Pain in unspecified hip Status: Acute Assessment and Plan: Reporting left hip pain PT/OT ordered X-ray of left hip show no change in an internally fixed chronic subcapital fracture of the proximal left femur, moderate lower lumbar spondylosis and mild osteoarthritis the bilateral hips and SI joints Continue pain medications Case management following for discharge needs. (2) Physical deconditioning: Code(s): R53.81 - Other malaise Status: Acute Assessment and Plan: Continue PT and OT (3) Hypothyroidism (acquired): Code(s): E03.9 - Hypothyroidism, unspecified Status: Acute Assessment and Plan: Continue Synthroid Will check TSH in the morning (4) Hypertensive heart disease without CHF: Code(s): I11.9 - Hypertensive heart disease without heart failure Status: Acute Assessment and Plan: Blood pressure ranging 123/75 to 161/72 Continue hydralazine (5) COPD (chronic obstructive pulmonary disease) with chronic bronchitis: Code(s): J44.9 - Chronic obstructive pulmonary disease, unspecified Status: Chronic Assessment and Plan: continue albuterol inhaler as needed (6) Blind right eye: Code(s): H54.40 - Blindness, one eye, unspecified eye Status: Chronic Assessment and Plan: Continue Tobramycin/Dexamethasone eye gtts Continue Prednisolone eye gtts (7) Altered mental status: Code(s): R41.82 - Altered mental status, unspecified Status: Acute Assessment and Plan: Increased confusion today Will obtain a UA with reflex to culture Will get CT scan of brain today. Time Spent With Patient Time with patient: 25 - 35 minutes Subjective Date/time seen: 09/27/23 14:51 Interval history: This is an 88 year old male who presented to the hospital on 09/26/23 with complaints of left knee pain. Work up in the hospital include left knee x-ray that revealed a left TKR with small join effusion. Hip and pelvis x-ray shown no significant change to internally fixed chronic subcapital fracture of the proximal left femur. Lumbar spine x-ray shown diffuse osteopenia, compression fracture deformity of L3, multilevel DDD. He has been having difficulty with ambulation and is for further evaluation and possible rehab placement. On examination today patient is alert and oriented x1, sitting in the chair. Son is at the bedside. VSS, he is on room air, he is afebrile. He denies and fever, chills, nausea, vomiting, diarrhea, abdominal pain, shortness of breath, chest pain. He endorses left knee pain. Son had some concerns today about increased confusion. When I asked patient where he was he said [facility] and was not able to tell me the correct year or tell me who the academic vice president is. Son had concerns for this on admission as well but there has not been a work up for anything neuro and a UA was not obtained. We will get a UA today as well as a CT of the head. Review of Systems Review of Systems: All systems reviewed & are unremarkable except as noted in HPI and below Constitutional: Constitutional: Reports as per HPI and Reports no additional constitutional complaints Eyes: Eyes: Reports as per HPI and Reports no additional eye complaints ENT: Reports system reviewed and no additional complaints, except as documented and Reports as per HPI Cardiovascular: Cardiovascular: Reports as per HPI and Reports no additional cardiovascular complaints Respiratory: Respiratory: Reports as per HPI and Reports no additional respiratory complaints Gastrointestinal: Gastrointestinal: Reports as per HPI and Reports no additional gastrointestinal complaints Genitourinary: Genitourinary: Reports no additional male genitourinary complaints
[2023-09-27 15:05] VITALS: BP 161/72; PULSE 73; RESP 20; TEMP 36.4; O2SAT 98
[2023-09-27] MEDS: SENNA/DOCUSATE SODIUM TABLET 2 TAB PO (17:23)
[2023-09-27 19:09] LABS: Basophils Percent Auto 0.3 % (0.2-1.2); Eosinophils Absolute Auto 0.1 K/mm3 (0-0.3); Eosinophils Percent Auto 1.3 % (0-4.4); Hemoglobin 14.9 g/dL (14.0-18.0); Immature Granulocyte Absolute 0.01 K/mm3 (0.00-0.031); Immature Granulocyte Percent A 0.1 % (0-0.5); Lymphocytes Absolute Auto 5.28 K/mm3 (0.9-3.2); Lymphocytes Percent Auto 55.7 % (18.3-44.2); Mean Corpuscular HGB Conc 33.9 g/dl (32-36); Mean Corpuscular Hemoglobin 32.7 pg (26-34); Mean Corpuscular Volume 96.5 fl (80-100); Mean Platelet Volume 8.5 fl (7.4-10.4); Monocytes Absolute Auto 0.9 K/mm3 (0.1-0.6); Monocytes Percent Auto 9.3 % (2.6-8.5); Neutrophils Absolute Auto 3.2 K/mm3 (1.3-6.7); Neutrophils Percent Auto 33.3 % (45.5-73.1); Platelet Count Result 180 k/mm3 (150-375); Red Blood Count 4.56 M/mm3 (4.6-6.20); Red Cell Distribution Width 12.5 % (11.5-14.5); White Blood Count 9.5 K/mm3 (4.5-10.0)
[2023-09-27 19:29] LABS: Alanine Aminotransferase 24 U/L (6-50); Albumin Level 4.1 g/dL (3.5-5.1); Alkaline Phosphatase 92 U/L (38-126); Anion Gap 6 mmol/L (8-16); Aspartate Amino Transferase 39 U/L (17-59); Blood Urea Nitrogen 20 mg/dL (9-20); Carbon Dioxide 30 mmol/L (22-30); Chloride 96 mmol/L (98-107); Estimated CRCL calculation 41 ml/min; Estimated Glomerular Filt Rate > 60; Glucose 131 mg/dL (65-110); Potassium 3.8 mmol/L (3.4-5.0); Sodium 132 mmol/L (137-145)
[2023-09-27] MEDS: ATORVASTATIN 20 MG TABLET PO (20:22)
[2023-09-27] MEDS: LORATADINE 10 MG TABLET PO (20:22)
[2023-09-27] MEDS: rOPINIRole HCL 1 MG TABLET 4 MG PO (20:22)
[2023-09-27] MEDS: FAMOTIDINE 20 MG TABLET PO (20:22)
[2023-09-27] MEDS: TOBRAMYCIN/DEXAMETHASONE OP 2.5 ML BTL 1 DROP LEFT EYE (20:31)
[2023-09-27] MEDS: prednisoLONE ACETATE 1% OPHTH 5 ML 1 DROP RIGHT EYE (21:02)
[2023-09-27] MEDS: hydrALAZINE HCL 25 MG TABLET PO (21:04)
[2023-09-27 22:00] VITALS: BP 120/81; PULSE 93; RESP 18; TEMP 36.6; O2SAT 99
[2023-09-28 00:42] LABS: Appearance Urine Clear (Clear); Bacteria Urine None Seen /hpf; Bilirubin Urine Negative (Negative); Blood Urine Negative (Negative); Color Urine Yellow (Yellow); Glucose Urine UA Negative (Negative); Ketones Urine Negative (Negative); Leukocyte Esterase Ur 2+ LEU/UL (Negative); Nitrate Urine Negative (Negative); Non Pathogenic Casts 0-2; Protein Urine Negative (Negative); Squamous Epithelial Cell Urine None seen /hpf (Few); pH Urine 6.5 (5.0-9.0)
[2023-09-28 00:44] LABS: Add Urine Microscopic? YES
[2023-09-28] MEDS: ACETAMINOPHEN 325 MG TABLET 650 MG PO (04:09)
[2023-09-28] MEDS: LORazepam INJ (*CRX) 2 MG/ML VIAL 1 MG IV PUSH (04:09)
[2023-09-28 06:00] VITALS: BP 157/86; PULSE 102; RESP 18; TEMP 37; O2SAT 100
[2023-09-28 06:17] LABS: Basophils Percent Auto 0.4 % (0.2-1.2); Eosinophils Absolute Auto 0.1 K/mm3 (0-0.3); Eosinophils Percent Auto 0.9 % (0-4.4); Hematocrit 40.4 % (42.0-52.0); Immature Granulocyte Absolute 0.02 K/mm3 (0.00-0.031); Immature Granulocyte Percent A 0.2 % (0-0.5); Lymphocytes Absolute Auto 6.11 K/mm3 (0.9-3.2); Lymphocytes Percent Auto 57.6 % (18.3-44.2); Mean Corpuscular HGB Conc 34.7 g/dl (32-36); Mean Corpuscular Hemoglobin 32.9 pg (26-34); Mean Corpuscular Volume 95.1 fl (80-100); Mean Platelet Volume 8.6 fl (7.4-10.4); Neutrophils Absolute Auto 3.4 K/mm3 (1.3-6.7); Neutrophils Percent Auto 31.9 % (45.5-73.1); Platelet Count Result 159 k/mm3 (150-375); Red Blood Count 4.25 M/mm3 (4.6-6.20); Red Cell Distribution Width 12.3 % (11.5-14.5); White Blood Count 10.6 K/mm3 (4.5-10.0)
[2023-09-28] MEDS: LEVOTHYROXINE SODIUM 125 MCG TABLET PO (06:23)
[2023-09-28] MEDS: hydrALAZINE HCL 25 MG TABLET PO ×2 (06:23→13:34)
[2023-09-28 06:29] LABS: Alanine Aminotransferase 21 U/L (6-50); Albumin Level 3.6 g/dL (3.5-5.1); Alkaline Phosphatase 92 U/L (38-126); Anion Gap 5 mmol/L (8-16); Aspartate Amino Transferase 33 U/L (17-59); Bilirubin,Total 1.3 mg/dL (0.2-1.3); Blood Urea Nitrogen 17 mg/dL (9-20); Calcium 9.7 mg/dL (8.4-10.2); Carbon Dioxide 28 mmol/L (22-30); Chloride 100 mmol/L (98-107); Estimated CRCL calculation 57 ml/min; Estimated Glomerular Filt Rate > 60; Glucose 109 mg/dL (65-110); Potassium 3.6 mmol/L (3.4-5.0); Sodium 133 mmol/L (137-145)
[2023-09-28 06:58] LABS: Platelet Estimate Adequate (Adequate)
[2023-09-28 06:59] LABS: Schistocytes None Seen (NORMAL); Smudge Cells PRESENT
[2023-09-28 08:00] VITALS: O2SAT 100
[2023-09-28] MEDS: TOBRAMYCIN/DEXAMETHASONE OP 2.5 ML BTL 1 DROP LEFT EYE ×2 (09:27→20:16)
[2023-09-28] MEDS: FAMOTIDINE 20 MG TABLET PO ×2 (09:27→20:15)
[2023-09-28] MEDS: ENOXAPARIN 40 MG/0.4 ML SYRINGE SUB-Q (09:27)
[2023-09-28] MEDS: CHOLECALCIFEROL 1,000 UNITS TABLET 5000 UNITS PO (09:27)
[2023-09-28] MEDS: PANTOPRAZOLE 40 MG TABLET PO (09:27)
[2023-09-28] MEDS: CYCLOBENZAPRINE HCL 10 MG TABLET PO ×2 (09:31→13:32)
[2023-09-28] MEDS: prednisoLONE ACETATE 1% OPHTH 5 ML 1 DROP RIGHT EYE ×2 (09:31→20:16)
[2023-09-28] MEDS: SENNA/DOCUSATE SODIUM TABLET 2 TAB PO ×2 (13:32→17:14)
[2023-09-28 14:00] VITALS: BP 109/68; PULSE 89; RESP 16; TEMP 36.5; O2SAT 100
[2023-09-28 15:06] VITALS: O2SAT 97
--- NOTE | 2023-09-28 16:09 | PM.IMPN ---
Progress Note: A&P Assessment and Plan (1) Altered mental status: Code(s): R41.82 - Altered mental status, unspecified Status: Acute (2) Hip joint pain: Qualifiers: Laterality: left Qualified Code(s): M25.552 - Pain in left hip Code(s): M25.559 - Pain in unspecified hip Status: Acute (3) COPD (chronic obstructive pulmonary disease) with chronic bronchitis: Code(s): J44.9 - Chronic obstructive pulmonary disease, unspecified Status: Chronic Plan 88-year-old white male with a history of hypertension, hyperlipidemia, hypothyroidism, COPD, recent left hip fracture status post repair in April 2023 presents with progressive pain of the left hip. Left hip x-ray on 09/26 compared to 07/24/2023 demonstrates no significant interval change of an internally fixed subcapital fracture of the proximal left femur which remains in near anatomic alignment. Lumbar x-ray demonstrating 40+ degrees lumbar rotatory dextroscoliosis and compression fracture deformity of L3. Left knee x-ray demonstrating left TKA with small joint effusion but no osseous abnormality. Admitted on 09/26/2023 On 09/28/2023 Continue PTOT. Case management following for discharge needs. Pain is well controlled. Altered mental status change appears to be new. CT scan of head unremarkable. Check vitamin B12. TSH within normal limits. MRI is a consideration however will start ceftriaxone for now as a UA was obtained on 09/27 and appears to be remarkable for urinary tract infection. Cultures pending. In the morning will check VBG. He has a history of COPD FEN: Saline lock IV. Heart healthy diet GI prophylaxis: Not indicated DVT prophylaxis: Lovenox Lines: Peripheral IV Code Status: Full code Dispo: Stable Subjective Date/time seen: 09/28/23 16:09 Interval history: No acute overnight events. Patient is pleasantly confused and does not answer questions appropriately. A close friend is at the bedside and he reports the patient is typically independent at home and the son is nearby to help. The patient cannot elicit any complaints otherwise. Review of Systems Review of Systems: All systems reviewed & are unremarkable except as noted in HPI and below (Subjective) Exam Const: General: comfortable and no acute distress Other: A&O x2. Family confused. Eyes: Pupils: Equal, round and reactive pupils present Neck: Neck: supple Resp: Effort & Inspection: normal respiratory effort Auscultation: clear to auscultation bilaterally Cardio: Rate: regular rate Rhythm: regular rhythm GI: GI Palp: Yes Soft to palpation and No Tenderness to palpation present (GI) Neuro: Motor exam (neuro): 5/5 motor strength present throughout Sensory Exam: normal sensation Extrem: General: no edema Objective Data Vital Signs Vital Signs: Vital Signs - 24 hr 09/27/23 22:00 09/28/23 06:00 09/28/23 08:00 Temperature 97.8 F 98.6 F Pulse Rate 93 102 H Respiratory Rate 18 18 Blood Pressure 120/81 157/86 H Pulse Oximetry 99 100 100 Oxygen Delivery Room Air 09/28/23 15:06 09/28/23 14:00 Temperature 97.7 F Pulse Rate 89 Respiratory Rate 16 Blood Pressure 109/68 Pulse Oximetry 97 100 Oxygen Delivery Room Air Intake/Output Intake/Output: Intake & Output 09/25/23 09/26/23 09/27/23 09/28/23 23:59 23:59 23:59 23:59 Intake Total 240 2220 372 Output Total 500 1150 1850 Balance -260 1070 -1478 Meds/Results Medications: Active Medications Generic Name Dose Route Start Last Admin Trade Name Freq PRN Reason Stop Dose Admin Acetaminophen 650 mg 09/26/23 15:45 09/28/23 04:09 Acetaminophen 325 Mg Tablet PO 650 mg Q4H PRN Administration Mild Pain (1-3) or Fever Albuterol 1 puff 09/27/23 16:19 Albuterol Sulfate (*Sp) Aerosol 1 Puff INHALATION Q6HRT PRN Shortness Of Breath Atorvastatin Calcium 20 mg 09/27/23 21:00 09/27/23 20:22 Atorvastatin
[2023-09-28] MEDS: rOPINIRole HCL 1 MG TABLET 4 MG PO (20:15)
[2023-09-28] MEDS: LORATADINE 10 MG TABLET PO (20:15)
[2023-09-28] MEDS: ATORVASTATIN 20 MG TABLET PO (20:16)
[2023-09-28 22:00] VITALS: BP 107/69; PULSE 112; RESP 18; TEMP 36.1; O2SAT 100
[2023-09-29] MEDS: diphenhydrAMINE HCl INJ 50 MG/ML VIAL IV PUSH (01:57)
[2023-09-29] MEDS: LORazepam INJ (*CRX) 2 MG/ML VIAL 1 MG IV PUSH (01:58)
[2023-09-29 04:30] VITALS: BP 157/91; PULSE 95; RESP 20; TEMP 35.9; O2SAT 97
[2023-09-29] MEDS: hydrALAZINE HCL 25 MG TABLET PO ×3 (05:09→21:15)
[2023-09-29] MEDS: LEVOTHYROXINE SODIUM 125 MCG TABLET PO (05:09)
[2023-09-29 06:17] LABS: Basophils Percent Auto 0.3 % (0.2-1.2); Eosinophils Absolute Auto 0.1 K/mm3 (0-0.3); Eosinophils Percent Auto 0.8 % (0-4.4); Hematocrit 38.4 % (42.0-52.0); Hemoglobin 13.8 g/dL (14.0-18.0); Immature Granulocyte Absolute 0.03 K/mm3 (0.00-0.031); Immature Granulocyte Percent A 0.3 % (0-0.5); Lymphocytes Absolute Auto 4.87 K/mm3 (0.9-3.2); Lymphocytes Percent Auto 45.2 % (18.3-44.2); Mean Corpuscular HGB Conc 35.9 g/dl (32-36); Mean Corpuscular Hemoglobin 33.6 pg (26-34); Mean Corpuscular Volume 93.4 fl (80-100); Mean Platelet Volume 8.5 fl (7.4-10.4); Monocytes Absolute Auto 1.2 K/mm3 (0.1-0.6); Monocytes Percent Auto 10.9 % (2.6-8.5); Neutrophils Absolute Auto 4.6 K/mm3 (1.3-6.7); Neutrophils Percent Auto 42.5 % (45.5-73.1); Platelet Count Result 153 k/mm3 (150-375); Red Blood Count 4.11 M/mm3 (4.6-6.20); Red Cell Distribution Width 12.2 % (11.5-14.5); White Blood Count 10.8 K/mm3 (4.5-10.0)
[2023-09-29 06:27] LABS: Alanine Aminotransferase 19 U/L (6-50); Albumin Level 3.5 g/dL (3.5-5.1); Alkaline Phosphatase 89 U/L (38-126); Anion Gap 6 mmol/L (8-16); Aspartate Amino Transferase 30 U/L (17-59); Bilirubin,Total 1.1 mg/dL (0.2-1.3); Blood Urea Nitrogen 15 mg/dL (9-20); Calcium 9.3 mg/dL (8.4-10.2); Carbon Dioxide 27 mmol/L (22-30); Chloride 98 mmol/L (98-107); Estimated CRCL calculation 50 ml/min; Estimated Glomerular Filt Rate > 60; Glucose 120 mg/dL (65-110); Magnesium 1.8 mg/dL (1.6-2.3); Potassium 3.5 mmol/L (3.4-5.0); Sodium 131 mmol/L (137-145)
[2023-09-29 07:36] LABS: Procalcitonin 0.1 ng/mL
[2023-09-29 08:00] VITALS: O2SAT 97
[2023-09-29] MEDS: ENOXAPARIN 40 MG/0.4 ML SYRINGE SUB-Q (10:05)
[2023-09-29] MEDS: CHOLECALCIFEROL 1,000 UNITS TABLET 5000 UNITS PO (10:08)
[2023-09-29] MEDS: FAMOTIDINE 20 MG TABLET PO ×2 (10:08→21:15)
[2023-09-29] MEDS: PANTOPRAZOLE 40 MG TABLET PO (10:09)
[2023-09-29] MEDS: prednisoLONE ACETATE 1% OPHTH 5 ML 1 DROP RIGHT EYE ×2 (10:09→21:12)
[2023-09-29] MEDS: TOBRAMYCIN/DEXAMETHASONE OP 2.5 ML BTL 1 DROP LEFT EYE ×2 (10:09→21:12)
--- NOTE | 2023-09-29 12:50 | PM.IMPN ---
Progress Note: A&P Assessment and Plan (1) Altered mental status: Code(s): R41.82 - Altered mental status, unspecified Status: Acute (2) Hip joint pain: Qualifiers: Laterality: left Qualified Code(s): M25.552 - Pain in left hip Code(s): M25.559 - Pain in unspecified hip Status: Acute (3) COPD (chronic obstructive pulmonary disease) with chronic bronchitis: Code(s): J44.9 - Chronic obstructive pulmonary disease, unspecified Status: Chronic Plan 88-year-old white male with a history of hypertension, hyperlipidemia, hypothyroidism, COPD, recent left hip fracture status post repair in April 2023 presents with progressive pain of the left hip. Left hip x-ray on 09/26 compared to 07/24/2023 demonstrates no significant interval change of an internally fixed subcapital fracture of the proximal left femur which remains in near anatomic alignment. Lumbar x-ray demonstrating 40+ degrees lumbar rotatory dextroscoliosis and compression fracture deformity of L3. Left knee x-ray demonstrating left TKA with small joint effusion but no osseous abnormality. Admitted on 09/26/2023 On 09/28/2023 Continue PTOT. Case management following for discharge needs. Pain is well controlled. Altered mental status change appears to be new. CT scan of head unremarkable. Check vitamin B12. TSH within normal limits. MRI is a consideration however will start ceftriaxone for now as a UA was obtained on 09/27 and appears to be remarkable for urinary tract infection. Cultures pending. In the morning will check VBG. He has a history of COPD On 09/29/2023 VBG not yet resulted. Since starting ceftriaxone for UTI his mentation is slightly improved he is now A&O x2 and reports the year is 2041. Urine cultures pending however so far negative. Leukocytosis flat. WBC from 10.6 at 10.8. Procalcitonin unremarkable at 0.1 vitamin B12 240. TSH 4.0. He has chronic hyponatremia. Will initiate normal saline at 100 cc/hour. Dehydration could certainly be precipitating altered mentation. Consult dietitian as well. FEN: Normal saline at 100 cc/hour. Heart healthy diet GI prophylaxis: Not indicated DVT prophylaxis: Lovenox Lines: Peripheral IV Code Status: Full code Dispo: Stable Subjective Date/time seen: 09/29/23 12:50 Interval history: No acute overnight events. He cannot elicit any complaints. Review of Systems Review of Systems: All systems reviewed & are unremarkable except as noted in HPI and below (Subjective) Exam Const: General: comfortable and no acute distress Other: A and O x 2-3 HENMT: Mouth: Yes dry mucous membranes Resp: Effort & Inspection: normal respiratory effort Auscultation: clear to auscultation bilaterally Cardio: Rate: regular rate Rhythm: regular rhythm GI: GI Palp: Yes Soft to palpation and No Tenderness to palpation present (GI) Extrem: General: no edema Objective Data Vital Signs Vital Signs: Vital Signs - 24 hr 09/28/23 15:06 09/28/23 14:00 09/28/23 22:00 Temperature 97.7 F 97 F L Pulse Rate 89 112 H Respiratory Rate 16 18 Blood Pressure 109/68 107/69 Pulse Oximetry 97 100 100 Oxygen Delivery Room Air 09/29/23 04:30 09/29/23 08:00 Temperature 96.6 F L Pulse Rate 95 Respiratory Rate 20 Blood Pressure 157/91 H Pulse Oximetry 97 97 Oxygen Delivery Room Air Intake/Output Intake/Output: Intake & Output 09/26/23 09/27/23 09/28/23 09/29/23 23:59 23:59 23:59 23:59 Intake Total 240 2220 1038 150 Output Total 500 1150 2350 475 Balance -260 1070 -1312 -325 Meds/Results Medications: Active Medications Generic Name Dose Route Start Last Admin Trade Name Freq PRN Reason Stop Dose Admin Acetaminophen 650 mg 09/26/23 15:45 09/28/23 04:09 Acetaminophen 325 Mg Tablet PO 650 mg Q4H PRN Administration Mild Pain (1-3) or Fever Albuterol 1 puff 09/27/23 16:19 Albuterol Sulfate (*Sp) Aerosol 1
[2023-09-29] MEDS: SENNA/DOCUSATE SODIUM TABLET 2 TAB PO ×2 (13:09→17:07)
[2023-09-29] MEDS: SODIUM CHLORIDE 0.9% IV 1,000 ML 100 ML IV CONT (13:11)
[2023-09-29 13:15] VITALS: BMI 24.9
[2023-09-29 14:00] VITALS: BP 106/60; PULSE 98; RESP 22; TEMP 36.6; O2SAT 96
[2023-09-29] MEDS: rOPINIRole HCL 1 MG TABLET 4 MG PO (21:14)
[2023-09-29] MEDS: LORATADINE 10 MG TABLET PO (21:15)
[2023-09-29] MEDS: ATORVASTATIN 20 MG TABLET PO (21:15)
[2023-09-29 22:00] VITALS: BP 146/70; PULSE 99; RESP 18; TEMP 36.9; O2SAT 97
[2023-09-30] MEDS: SODIUM CHLORIDE 0.9% IV 1,000 ML 100 ML IV CONT (02:58)
[2023-09-30] MEDS: hydrALAZINE HCL 25 MG TABLET PO ×3 (05:22→21:12)
[2023-09-30] MEDS: LEVOTHYROXINE SODIUM 125 MCG TABLET PO (05:22)
[2023-09-30 06:00] VITALS: BP 122/79; PULSE 95; RESP 16; TEMP 36.5; O2SAT 97
[2023-09-30 07:10] LABS: Basophils Percent Auto 0.3 % (0.2-1.2); Eosinophils Absolute Auto 0.1 K/mm3 (0-0.3); Eosinophils Percent Auto 1.3 % (0-4.4); Hematocrit 36.1 % (42.0-52.0); Hemoglobin 12.3 g/dL (14.0-18.0); Immature Granulocyte Absolute 0.02 K/mm3 (0.00-0.031); Immature Granulocyte Percent A 0.2 % (0-0.5); Lymphocytes Absolute Auto 4.29 K/mm3 (0.9-3.2); Lymphocytes Percent Auto 47.6 % (18.3-44.2); Mean Corpuscular HGB Conc 34.1 g/dl (32-36); Mean Corpuscular Hemoglobin 32.5 pg (26-34); Mean Corpuscular Volume 95.3 fl (80-100); Mean Platelet Volume 8.9 fl (7.4-10.4); Monocytes Absolute Auto 1.2 K/mm3 (0.1-0.6); Monocytes Percent Auto 12.9 % (2.6-8.5); Neutrophils Absolute Auto 3.4 K/mm3 (1.3-6.7); Neutrophils Percent Auto 37.7 % (45.5-73.1); Platelet Count Result 147 k/mm3 (150-375); Red Blood Count 3.79 M/mm3 (4.6-6.20); Red Cell Distribution Width 12.3 % (11.5-14.5)
[2023-09-30 07:22] LABS: Alanine Aminotransferase 17 U/L (6-50); Albumin Level 3.2 g/dL (3.5-5.1); Alkaline Phosphatase 82 U/L (38-126); Anion Gap 4 mmol/L (8-16); Aspartate Amino Transferase 31 U/L (17-59); Bilirubin,Total 0.9 mg/dL (0.2-1.3); Blood Urea Nitrogen 11 mg/dL (9-20); Calcium 8.7 mg/dL (8.4-10.2); Carbon Dioxide 25 mmol/L (22-30); Chloride 101 mmol/L (98-107); Estimated CRCL calculation 57 ml/min; Estimated Glomerular Filt Rate > 60; Glucose 102 mg/dL (65-110); Potassium 3.4 mmol/L (3.4-5.0); Sodium 130 mmol/L (137-145)
[2023-09-30] MEDS: FAMOTIDINE 20 MG TABLET PO ×2 (09:33→20:21)
[2023-09-30] MEDS: prednisoLONE ACETATE 1% OPHTH 5 ML 1 DROP RIGHT EYE ×2 (09:34→20:21)
[2023-09-30] MEDS: PANTOPRAZOLE 40 MG TABLET PO (09:34)
[2023-09-30] MEDS: CHOLECALCIFEROL 1,000 UNITS TABLET 5000 UNITS PO (09:34)
[2023-09-30] MEDS: ENOXAPARIN 40 MG/0.4 ML SYRINGE SUB-Q (09:34)
[2023-09-30] MEDS: TOBRAMYCIN/DEXAMETHASONE OP 2.5 ML BTL 1 DROP LEFT EYE ×2 (09:34→20:21)
[2023-09-30 14:00] VITALS: BP 115/76; PULSE 94; RESP 22; TEMP 36.5; O2SAT 98
--- NOTE | 2023-09-30 15:05 | PM.IMPN ---
Progress Note: A&P Assessment and Plan (1) Altered mental status: Code(s): R41.82 - Altered mental status, unspecified Status: Acute (2) Hip joint pain: Qualifiers: Laterality: left Qualified Code(s): M25.552 - Pain in left hip Code(s): M25.559 - Pain in unspecified hip Status: Acute (3) COPD (chronic obstructive pulmonary disease) with chronic bronchitis: Code(s): J44.9 - Chronic obstructive pulmonary disease, unspecified Status: Chronic Plan 88-year-old white male with a history of hypertension, hyperlipidemia, hypothyroidism, COPD, recent left hip fracture status post repair in April 2023 presents with progressive pain of the left hip. Left hip x-ray on 09/26 compared to 07/24/2023 demonstrates no significant interval change of an internally fixed subcapital fracture of the proximal left femur which remains in near anatomic alignment. Lumbar x-ray demonstrating 40+ degrees lumbar rotatory dextroscoliosis and compression fracture deformity of L3. Left knee x-ray demonstrating left TKA with small joint effusion but no osseous abnormality. Admitted on 09/26/2023 On 09/28/2023 Continue PTOT. Case management following for discharge needs. Pain is well controlled. Altered mental status change appears to be new. CT scan of head unremarkable. Check vitamin B12. TSH within normal limits. MRI is a consideration however will start ceftriaxone for now as a UA was obtained on 09/27 and appears to be remarkable for urinary tract infection. Cultures pending. In the morning will check VBG. He has a history of COPD On 09/29/2023 VBG not yet resulted. Since starting ceftriaxone for UTI his mentation is slightly improved he is now A&O x2 and reports the year is 2041. Urine cultures pending however so far negative. Leukocytosis flat. WBC from 10.6 at 10.8. Procalcitonin unremarkable at 0.1 vitamin B12 240. TSH 4.0. He has chronic hyponatremia. Will initiate normal saline at 100 cc/hour. Dehydration could certainly be precipitating altered mentation. Consult dietitian as well. On 09/30/2023 VBG still not completed. Reordered it completely. Have also ordered a PCR for COVID flu RSV as COVID especially can cause altered mentation. His leukocytosis is improved and urine culture is negative complete. Doubt that there is an acute toxic encephalopathy. Discontinue fluids. Monitor CBC BMP. 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 Ordering MRI. FEN: Saline lock IV Heart healthy diet GI prophylaxis: Not indicated DVT prophylaxis: Lovenox Lines: Peripheral IV Code Status: Full code Dispo: Stable Subjective Date/time seen: 09/30/23 15:05 Interval history: No acute overnight events. He is able to participate with discussion and knows that his memory is poor. Has no specific complaints although. Review of Systems Review of Systems: All systems reviewed & are unremarkable except as noted in HPI and below (Subjective) Exam Const: General: comfortable and no acute distress Other: A and O x 2-3 HENMT: Mouth: Yes dry mucous membranes Resp: Effort & Inspection: normal respiratory effort Auscultation: clear to auscultation bilaterally Cardio: Rate: regular rate Rhythm: regular rhythm GI: GI Palp: Yes Soft to palpation and No Tenderness to palpation present (GI) Extrem: General: no edema Objective Data Vital Signs Vital Signs: Vital Signs - 24 hr 09/29/23 22:00 09/30/23 06:00 09/30/23 08:00 Temperature 98.5 F 97.7 F Pulse Rate 99 95 Respiratory Rate 18 16 Blood Pressure 146/70 H 122/79 Pulse Oximetry 97 97 Oxygen Delivery Room Air 09/30/23 14:00 Temperature 97.7 F Pulse Rate 94 Respiratory Rate 22 H Blood Pressure 115/76 Pulse Oximetry 98 Oxygen Delivery Intake/Output Intake/Output: Intake & Output 09/27/23 09/28/23 09/29/23 09/30/23 23:59 23:59 23:59 23:59 Intake Total 2220 1088 2088 707 Output T
[2023-09-30 16:04] LABS: Fractional Inspired Oxygen 21 %; HCO3 VBG 21.8 mEq/l (24.0-30.0); PCO2 VBG 33.4 mmHg (42.0-48.0); PO2 VBG 47.1 mmHg (35.0-45.0)
[2023-09-30 16:08] LABS: pH VBG 7.432 (7.300-7.400)
--- NOTE | 2023-09-30 16:14 | PC.NURSE ---
Blood gas results called to provider.
[2023-09-30 17:02] LABS: Influenza A QL RT-PCR Negative (Negative); Influenza B QL RT-PCR Negative (Negative); RSV RNA, RT-PCR Negative (Negative); SARS-CoV-2 RNA PCR Negative (Negative)
[2023-09-30] MEDS: SENNA/DOCUSATE SODIUM TABLET 2 TAB PO (18:26)
[2023-09-30 19:52] VITALS: PULSE 94; RESP 22; O2SAT 98
[2023-09-30] MEDS: ATORVASTATIN 20 MG TABLET PO (20:21)
[2023-09-30] MEDS: rOPINIRole HCL 1 MG TABLET 4 MG PO (20:21)
[2023-09-30] MEDS: LORATADINE 10 MG TABLET PO (20:21)
[2023-09-30 22:00] VITALS: BP 118/70; PULSE 95; RESP 18; TEMP 36.4; O2SAT 98
[2023-10-01] MEDS: ACETAMINOPHEN 325 MG TABLET 650 MG PO (03:41)
[2023-10-01 05:26] VITALS: BP 133/82; PULSE 101; RESP 18; TEMP 36.7; O2SAT 97
[2023-10-01] MEDS: hydrALAZINE HCL 25 MG TABLET PO ×2 (05:27→21:45)
[2023-10-01] MEDS: LEVOTHYROXINE SODIUM 125 MCG TABLET PO (06:35)
[2023-10-01 07:17] LABS: Basophils Percent Auto 0.4 % (0.2-1.2); Eosinophils Absolute Auto 0.1 K/mm3 (0-0.3); Eosinophils Percent Auto 1.2 % (0-4.4); Hematocrit 35.7 % (42.0-52.0); Hemoglobin 12.6 g/dL (14.0-18.0); Immature Granulocyte Absolute 0.03 K/mm3 (0.00-0.031); Immature Granulocyte Percent A 0.3 % (0-0.5); Lymphocytes Absolute Auto 4.45 K/mm3 (0.9-3.2); Lymphocytes Percent Auto 43.1 % (18.3-44.2); Mean Corpuscular HGB Conc 35.3 g/dl (32-36); Mean Corpuscular Hemoglobin 33.1 pg (26-34); Mean Corpuscular Volume 93.7 fl (80-100); Mean Platelet Volume 8.5 fl (7.4-10.4); Monocytes Absolute Auto 1.4 K/mm3 (0.1-0.6); Monocytes Percent Auto 13.9 % (2.6-8.5); Neutrophils Absolute Auto 4.3 K/mm3 (1.3-6.7); Neutrophils Percent Auto 41.1 % (45.5-73.1); Platelet Count Result 131 k/mm3 (150-375); Red Blood Count 3.81 M/mm3 (4.6-6.20); Red Cell Distribution Width 11.9 % (11.5-14.5); White Blood Count 10.3 K/mm3 (4.5-10.0)
[2023-10-01 07:33] LABS: Alanine Aminotransferase 18 U/L (6-50); Albumin Level 3.2 g/dL (3.5-5.1); Alkaline Phosphatase 91 U/L (38-126); Anion Gap 4 mmol/L (8-16); Aspartate Amino Transferase 35 U/L (17-59); Blood Urea Nitrogen 11 mg/dL (9-20); Calcium 8.9 mg/dL (8.4-10.2); Carbon Dioxide 26 mmol/L (22-30); Chloride 98 mmol/L (98-107); Estimated CRCL calculation 65 ml/min; Estimated Glomerular Filt Rate > 60; Glucose 110 mg/dL (65-110); Potassium 3.5 mmol/L (3.4-5.0); Sodium 128 mmol/L (137-145)
[2023-10-01 08:00] VITALS: PULSE 101; RESP 18; O2SAT 97
[2023-10-01] MEDS: TOBRAMYCIN/DEXAMETHASONE OP 2.5 ML BTL 1 DROP LEFT EYE ×2 (09:02→20:17)
[2023-10-01] MEDS: prednisoLONE ACETATE 1% OPHTH 5 ML 1 DROP RIGHT EYE ×2 (09:02→20:17)
[2023-10-01] MEDS: FAMOTIDINE 20 MG TABLET PO ×2 (09:02→20:17)
[2023-10-01] MEDS: PANTOPRAZOLE 40 MG TABLET PO (09:02)
[2023-10-01] MEDS: ENOXAPARIN 40 MG/0.4 ML SYRINGE SUB-Q (09:02)
[2023-10-01] MEDS: CHOLECALCIFEROL 1,000 UNITS TABLET 5000 UNITS PO (09:02)
--- NOTE | 2023-10-01 13:19 | PM.IMPN ---
Progress Note: A&P Assessment and Plan (1) Altered mental status: Code(s): R41.82 - Altered mental status, unspecified Status: Acute (2) Hip joint pain: Qualifiers: Laterality: left Qualified Code(s): M25.552 - Pain in left hip Code(s): M25.559 - Pain in unspecified hip Status: Acute (3) COPD (chronic obstructive pulmonary disease) with chronic bronchitis: Code(s): J44.9 - Chronic obstructive pulmonary disease, unspecified Status: Chronic Plan 88-year-old white male with a history of hypertension, hyperlipidemia, hypothyroidism, COPD, recent left hip fracture status post repair in April 2023 presents with progressive pain of the left hip. Left hip x-ray on 09/26 compared to 07/24/2023 demonstrates no significant interval change of an internally fixed subcapital fracture of the proximal left femur which remains in near anatomic alignment. Lumbar x-ray demonstrating 40+ degrees lumbar rotatory dextroscoliosis and compression fracture deformity of L3. Left knee x-ray demonstrating left TKA with small joint effusion but no osseous abnormality. Admitted on 09/26/2023 On 09/28/2023 Continue PTOT. Case management following for discharge needs. Pain is well controlled. Altered mental status change appears to be new. CT scan of head unremarkable. Check vitamin B12. TSH within normal limits. MRI is a consideration however will start ceftriaxone for now as a UA was obtained on 09/27 and appears to be remarkable for urinary tract infection. Cultures pending. In the morning will check VBG. He has a history of COPD On 09/29/2023 VBG not yet resulted. Since starting ceftriaxone for UTI his mentation is slightly improved he is now A&O x2 and reports the year is 2041. Urine cultures pending however so far negative. Leukocytosis flat. WBC from 10.6 at 10.8. Procalcitonin unremarkable at 0.1 vitamin B12 240. TSH 4.0. He has chronic hyponatremia. Will initiate normal saline at 100 cc/hour. Dehydration could certainly be precipitating altered mentation. Consult dietitian as well. On 09/30/2023 VBG still not completed. Reordered it completely. Have also ordered a PCR for COVID flu RSV as COVID especially can cause altered mentation. His leukocytosis is improved and urine culture is negative complete. Doubt that there is an acute toxic encephalopathy. Discontinue fluids. Monitor CBC BMP. 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 Ordering MRI. On 10/01/2023 25 minute discussion held with the son, the daughter, and the [id number] all. They do report the patient has had episodes of sundowning previously. Discussed the possibility of lumbar puncture and further evaluation including specialist workup. Discussed the nature of dementia and course of it. They were readily understanding of his neurocognitive decline and did not want any further workup. We do have an MRI pending and if there are any significant abnormalities we can adjust based on that. Care coordination has been consulted again for permanent placement as the patient previously lived at home alone and would not be able to take care of himself anymore. Tomorrow will be his 5th and last dose of ceftriaxone. FEN: Saline lock IV Heart healthy diet GI prophylaxis: Not indicated DVT prophylaxis: Lovenox Lines: Peripheral IV Code Status: Full code Dispo: Stable Subjective Date/time seen: 10/01/23 13:19 Interval history: No acute overnight events. Patient jokes he wants to go to [place]. He has no specific complaints. Daughter son and [id number] present in room. Review of Systems Review of Systems: ROS unobtainable: Yes unobtainable due to mental status Exam Const: General: comfortable and no acute distress Other: A and O x 1 Resp: Effort & Inspection: normal respiratory effort Auscultation: clear to auscultation bilaterally Cardio: Rate: regular rate Rhythm: regular rhyt
[2023-10-01 14:00] VITALS: BP 126/71; PULSE 94; RESP 18; TEMP 35.7; O2SAT 99
[2023-10-01] MEDS: SENNA/DOCUSATE SODIUM TABLET 2 TAB PO (18:01)
[2023-10-01] MEDS: rOPINIRole HCL 1 MG TABLET 4 MG PO (20:17)
[2023-10-01] MEDS: ATORVASTATIN 20 MG TABLET PO (20:17)
[2023-10-01] MEDS: LORATADINE 10 MG TABLET PO (20:17)
[2023-10-01 21:36] VITALS: BP 130/73; PULSE 92; RESP 20; TEMP 36.8; O2SAT 100
[2023-10-02] MEDS: hydrALAZINE HCL 25 MG TABLET PO ×3 (05:35→21:49)
[2023-10-02] MEDS: LEVOTHYROXINE SODIUM 125 MCG TABLET PO (05:35)
[2023-10-02 06:00] VITALS: BP 142/80; PULSE 92; RESP 18; TEMP 36.6; O2SAT 96
[2023-10-02 06:58] LABS: Basophils Percent Auto 0.3 % (0.2-1.2); Eosinophils Absolute Auto 0.2 K/mm3 (0-0.3); Eosinophils Percent Auto 1.6 % (0-4.4); Hemoglobin 13.6 g/dL (14.0-18.0); Immature Granulocyte Absolute 0.03 K/mm3 (0.00-0.031); Immature Granulocyte Percent A 0.3 % (0-0.5); Lymphocytes Absolute Auto 4.62 K/mm3 (0.9-3.2); Lymphocytes Percent Auto 43.1 % (18.3-44.2); Mean Corpuscular HGB Conc 35.8 g/dl (32-36); Mean Corpuscular Hemoglobin 33.2 pg (26-34); Mean Corpuscular Volume 92.7 fl (80-100); Mean Platelet Volume 8.6 fl (7.4-10.4); Monocytes Absolute Auto 1.4 K/mm3 (0.1-0.6); Monocytes Percent Auto 13.3 % (2.6-8.5); Neutrophils Absolute Auto 4.4 K/mm3 (1.3-6.7); Neutrophils Percent Auto 41.4 % (45.5-73.1); Platelet Count Result 154 k/mm3 (150-375); Red Cell Distribution Width 11.9 % (11.5-14.5); White Blood Count 10.7 K/mm3 (4.5-10.0)
[2023-10-02 07:12] LABS: Alanine Aminotransferase 24 U/L (6-50); Albumin Level 3.5 g/dL (3.5-5.1); Alkaline Phosphatase 109 U/L (38-126); Anion Gap 5 mmol/L (8-16); Aspartate Amino Transferase 38 U/L (17-59); Blood Urea Nitrogen 10 mg/dL (9-20); Calcium 9.2 mg/dL (8.4-10.2); Carbon Dioxide 26 mmol/L (22-30); Chloride 97 mmol/L (98-107); Estimated CRCL calculation 65 ml/min; Estimated Glomerular Filt Rate > 60; Glucose 111 mg/dL (65-110); Potassium 3.6 mmol/L (3.4-5.0); Sodium 128 mmol/L (137-145)
[2023-10-02 07:45] LABS: Procalcitonin 0.1 ng/mL
[2023-10-02] MEDS: CHOLECALCIFEROL 1,000 UNITS TABLET 5000 UNITS PO (08:27)
[2023-10-02] MEDS: PANTOPRAZOLE 40 MG TABLET PO (08:28)
[2023-10-02] MEDS: ENOXAPARIN 40 MG/0.4 ML SYRINGE SUB-Q (08:28)
[2023-10-02] MEDS: FAMOTIDINE 20 MG TABLET PO ×2 (08:28→21:49)
[2023-10-02] MEDS: prednisoLONE ACETATE 1% OPHTH 5 ML 1 DROP RIGHT EYE ×2 (08:29→21:51)
[2023-10-02] MEDS: ACETAMINOPHEN 325 MG TABLET 650 MG PO (09:45)
[2023-10-02] MEDS: TOBRAMYCIN/DEXAMETHASONE OP 2.5 ML BTL 1 DROP LEFT EYE ×2 (09:45→21:51)
[2023-10-02] MEDS: TAMSULOSIN HCL 0.4 MG CAPSULE PO (10:15)
[2023-10-02] MEDS: SENNA/DOCUSATE SODIUM TABLET 2 TAB PO ×2 (11:07→16:25)
--- NOTE | 2023-10-02 13:40 | PM.IMPN ---
Progress Note: A&P Assessment and Plan (1) Altered mental status: Code(s): R41.82 - Altered mental status, unspecified Status: Acute (2) Hip joint pain: Qualifiers: Laterality: left Qualified Code(s): M25.552 - Pain in left hip Code(s): M25.559 - Pain in unspecified hip Status: Acute (3) COPD (chronic obstructive pulmonary disease) with chronic bronchitis: Code(s): J44.9 - Chronic obstructive pulmonary disease, unspecified Status: Chronic Plan 88-year-old white male with a history of hypertension, hyperlipidemia, hypothyroidism, COPD, recent left hip fracture status post repair in April 2023 presents with progressive pain of the left hip. Left hip x-ray on 09/26 compared to 07/24/2023 demonstrates no significant interval change of an internally fixed subcapital fracture of the proximal left femur which remains in near anatomic alignment. Lumbar x-ray demonstrating 40+ degrees lumbar rotatory dextroscoliosis and compression fracture deformity of L3. Left knee x-ray demonstrating left TKA with small joint effusion but no osseous abnormality. Admitted on 09/26/2023 On 09/28/2023 Continue PTOT. Case management following for discharge needs. Pain is well controlled. Altered mental status change appears to be new. CT scan of head unremarkable. Check vitamin B12. TSH within normal limits. MRI is a consideration however will start ceftriaxone for now as a UA was obtained on 09/27 and appears to be remarkable for urinary tract infection. Cultures pending. In the morning will check VBG. He has a history of COPD On 09/29/2023 VBG not yet resulted. Since starting ceftriaxone for UTI his mentation is slightly improved he is now A&O x2 and reports the year is 2041. Urine cultures pending however so far negative. Leukocytosis flat. WBC from 10.6 at 10.8. Procalcitonin unremarkable at 0.1 vitamin B12 240. TSH 4.0. He has chronic hyponatremia. Will initiate normal saline at 100 cc/hour. Dehydration could certainly be precipitating altered mentation. Consult dietitian as well. On 09/30/2023 VBG still not completed. Reordered it completely. Have also ordered a PCR for COVID flu RSV as COVID especially can cause altered mentation. His leukocytosis is improved and urine culture is negative complete. Doubt that there is an acute toxic encephalopathy. Discontinue fluids. Monitor CBC BMP. 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 Ordering MRI. On 10/01/2023 25 minute discussion held with the son, the daughter, and the [id number] all. They do report the patient has had episodes of sundowning previously. Discussed the possibility of lumbar puncture and further evaluation including specialist workup. Discussed the nature of dementia and course of it. They were readily understanding of his neurocognitive decline and did not want any further workup. We do have an MRI pending and if there are any significant abnormalities we can adjust based on that. Care coordination has been consulted again for permanent placement as the patient previously lived at home alone and would not be able to take care of himself anymore. Tomorrow will be his 5th and last dose of ceftriaxone. On 10/02/2023 The patient's mentation is unchanged. Dated the daughter Raisa on the MRI report and she is understanding. Continue to arrange disposition with care coordination to permanent placement. In his 50s the patient fell off a 20 ft building and hit the right side of his head on a container. Discontinue antibiotics. Had some urinary retention and Fink was placed. Start tamsulosin. Voiding trial tomorrow. FEN: Saline lock IV Heart healthy diet GI prophylaxis: Not indicated DVT prophylaxis: Lovenox Lines: Peripheral IV Code Status: Full code Dispo: Stable Subjective Date/time seen: 10/02/23 13:40 Interval history: No acute overnight events. Patient cannot remember who I am. He o
[2023-10-02 14:00] VITALS: BP 117/73; PULSE 94; RESP 18; TEMP 35.8; O2SAT 100
[2023-10-02] MEDS: rOPINIRole HCL 1 MG TABLET 4 MG PO (21:48)
[2023-10-02 21:49] VITALS: BP 126/66; PULSE 97; RESP 19; TEMP 36.1; O2SAT 99
[2023-10-02] MEDS: ATORVASTATIN 20 MG TABLET PO (21:49)
[2023-10-02] MEDS: LORATADINE 10 MG TABLET PO (21:49)
[2023-10-03 06:00] VITALS: BP 141/72; PULSE 99; RESP 20; TEMP 36.6; O2SAT 99
[2023-10-03] MEDS: LEVOTHYROXINE SODIUM 125 MCG TABLET PO (06:44)
[2023-10-03] MEDS: hydrALAZINE HCL 25 MG TABLET PO ×3 (06:44→21:12)
[2023-10-03] MEDS: ENOXAPARIN 40 MG/0.4 ML SYRINGE SUB-Q (09:44)
[2023-10-03] MEDS: FAMOTIDINE 20 MG TABLET PO ×2 (09:45→21:09)
[2023-10-03] MEDS: TAMSULOSIN HCL 0.4 MG CAPSULE PO (09:45)
[2023-10-03] MEDS: CHOLECALCIFEROL 1,000 UNITS TABLET 5000 UNITS PO (09:45)
[2023-10-03] MEDS: PANTOPRAZOLE 40 MG TABLET PO (09:45)
[2023-10-03] MEDS: prednisoLONE ACETATE 1% OPHTH 5 ML 1 DROP RIGHT EYE ×2 (09:45→21:08)
[2023-10-03] MEDS: TOBRAMYCIN/DEXAMETHASONE OP 2.5 ML BTL 1 DROP LEFT EYE ×2 (09:45→21:08)
[2023-10-03 13:48] VITALS: BP 125/58; PULSE 91; RESP 20; TEMP 36.6; O2SAT 100
--- NOTE | 2023-10-03 14:20 | PM.IMPN ---
Progress Note: A&P Assessment and Plan (1) Altered mental status: Code(s): R41.82 - Altered mental status, unspecified Status: Acute (2) Hip joint pain: Qualifiers: Laterality: left Qualified Code(s): M25.552 - Pain in left hip Code(s): M25.559 - Pain in unspecified hip Status: Acute (3) COPD (chronic obstructive pulmonary disease) with chronic bronchitis: Code(s): J44.9 - Chronic obstructive pulmonary disease, unspecified Status: Chronic Plan 88-year-old white male with a history of hypertension, hyperlipidemia, hypothyroidism, COPD, recent left hip fracture status post repair in April 2023 presents with progressive pain of the left hip. Left hip x-ray on 09/26 compared to 07/24/2023 demonstrates no significant interval change of an internally fixed subcapital fracture of the proximal left femur which remains in near anatomic alignment. Lumbar x-ray demonstrating 40+ degrees lumbar rotatory dextroscoliosis and compression fracture deformity of L3. Left knee x-ray demonstrating left TKA with small joint effusion but no osseous abnormality. Admitted on 09/26/2023 On 09/28/2023 Continue PTOT. Case management following for discharge needs. Pain is well controlled. Altered mental status change appears to be new. CT scan of head unremarkable. Check vitamin B12. TSH within normal limits. MRI is a consideration however will start ceftriaxone for now as a UA was obtained on 09/27 and appears to be remarkable for urinary tract infection. Cultures pending. In the morning will check VBG. He has a history of COPD On 09/29/2023 VBG not yet resulted. Since starting ceftriaxone for UTI his mentation is slightly improved he is now A&O x2 and reports the year is 2041. Urine cultures pending however so far negative. Leukocytosis flat. WBC from 10.6 at 10.8. Procalcitonin unremarkable at 0.1 vitamin B12 240. TSH 4.0. He has chronic hyponatremia. Will initiate normal saline at 100 cc/hour. Dehydration could certainly be precipitating altered mentation. Consult dietitian as well. On 09/30/2023 VBG still not completed. Reordered it completely. Have also ordered a PCR for COVID flu RSV as COVID especially can cause altered mentation. His leukocytosis is improved and urine culture is negative complete. Doubt that there is an acute toxic encephalopathy. Discontinue fluids. Monitor CBC BMP. 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 Ordering MRI. On 10/01/2023 25 minute discussion held with the son, the daughter, and the [id number] all. They do report the patient has had episodes of sundowning previously. Discussed the possibility of lumbar puncture and further evaluation including specialist workup. Discussed the nature of dementia and course of it. They were readily understanding of his neurocognitive decline and did not want any further workup. We do have an MRI pending and if there are any significant abnormalities we can adjust based on that. Care coordination has been consulted again for permanent placement as the patient previously lived at home alone and would not be able to take care of himself anymore. Tomorrow will be his 5th and last dose of ceftriaxone. On 10/02/2023 The patient's mentation is unchanged. Dated the daughter Raisa on the MRI report and she is understanding. Continue to arrange disposition with care coordination to permanent placement. In his 50s the patient fell off a 20 ft building and hit the right side of his head on a container. Discontinue antibiotics. Had some urinary retention and Fink was placed. Start tamsulosin. Voiding trial tomorrow. On 10/03 the patient has no changes in mentation. Disposition is being arranged between care coordination in the family. Ordered voiding trial for today. FEN: Saline lock IV Heart healthy diet GI prophylaxis: Not indicated DVT prophylaxis: Lovenox Lines: Peripheral IV Code Status: Full code
[2023-10-03] MEDS: LORATADINE 10 MG TABLET PO (21:09)
[2023-10-03] MEDS: rOPINIRole HCL 1 MG TABLET 4 MG PO (21:09)
[2023-10-03] MEDS: ATORVASTATIN 20 MG TABLET PO (21:09)
[2023-10-03] MEDS: ACETAMINOPHEN 325 MG TABLET 650 MG PO (21:17)
[2023-10-03 21:53] VITALS: BP 122/70; PULSE 68; RESP 19; TEMP 36.6; O2SAT 93
[2023-10-04] MEDS: hydrALAZINE HCL 25 MG TABLET PO ×2 (05:51→19:56)
[2023-10-04] MEDS: LEVOTHYROXINE SODIUM 125 MCG TABLET PO (05:51)
[2023-10-04 06:00] VITALS: BP 149/84; PULSE 101; RESP 18; TEMP 36.1; O2SAT 99
[2023-10-04] MEDS: TAMSULOSIN HCL 0.4 MG CAPSULE PO (09:00)
[2023-10-04] MEDS: ENOXAPARIN 40 MG/0.4 ML SYRINGE SUB-Q (09:01)
[2023-10-04] MEDS: PANTOPRAZOLE 40 MG TABLET PO (09:01)
[2023-10-04] MEDS: CHOLECALCIFEROL 1,000 UNITS TABLET 5000 UNITS PO (09:01)
[2023-10-04] MEDS: TOBRAMYCIN/DEXAMETHASONE OP 2.5 ML BTL 1 DROP LEFT EYE ×2 (09:01→19:54)
[2023-10-04] MEDS: FAMOTIDINE 20 MG TABLET PO ×2 (09:01→19:56)
[2023-10-04] MEDS: prednisoLONE ACETATE 1% OPHTH 5 ML 1 DROP RIGHT EYE ×2 (09:01→19:54)
--- NOTE | 2023-10-04 10:45 | PCNFU ---
Nutrition Follow-Up Complete: Suboptimal po intake related to appetite as evidenced by varied charted intake. Goal:PO intake 75% or greater most meals Pt progressing towards goal. Continue with same goal. Pt current nutrition is Regular, Ensure compact BID. Nutrition recommendation: continue with current plan of care Last recorded weight is 70 kg. Bowel Motility: +BM 10/03 Labs Reviewed:Hgb:13.6, HCT:38, NA:128, Cr:0.6 Meds Noted: lovenox, protonix, zofran Skin: no skin issues noted Additional Notes: Pt continues on a regular diet, intake 50-75% most meals plus Ensure compact. Continue to encourage good po intake. Monitor intake, wt, labs. Follow up in 5 days.
[2023-10-04] MEDS: SENNA/DOCUSATE SODIUM TABLET 2 TAB PO (12:53)
[2023-10-04 14:00] VITALS: BP 106/57; PULSE 66; RESP 18; TEMP 36.6; O2SAT 94
--- NOTE | 2023-10-04 14:29 | PM.DS ---
DS: Admitting Diagnosis Discharge Date October 04, 2023 Admitting Diagnosis Altered mental status DS: Discharge Diagnosis Discharge Diagnosis (1) Closed subcapital fracture of left femur: Qualifiers: Encounter type: initial encounter Qualified Code(s): S72.012A - Unspecified intracapsular fracture of left femur, initial encounter for closed fracture Code(s): S72.012A - Unspecified intracapsular fracture of left femur, initial encounter for closed fracture Status: Acute (2) Hypothyroidism (acquired): Code(s): E03.9 - Hypothyroidism, unspecified Status: Acute DS: Summary Hospital Course Hospital Course: This is a pleasant 88-year-old white male with history of hypertension, hyperlipidemia, hypothyroidism, COPD, recent left hip fracture status post repair in April 2023 who presented with progressive pain of the left hip. Left hip x-ray on 09/26 compared to 07/24/2023 demonstrates no significant interval change of an internally fixed subcapital fracture of the proximal left femur which remains in near anatomic alignment.? Lumbar x-ray demonstrating 40+ degrees lumbar rotatory dextroscoliosis and compression fracture deformity of L3.? Left knee x-ray demonstrating left TKA with small joint effusion but no osseous abnormality.? Admitted on 09/26/2023 The patient's hip pain during his admission was otherwise controlled well without further addition of pain medications. He however was noted to have altered mental status and workup was widely unremarkable for acute pathology. 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 The patient did have a fall from a 20 ft high in his 5th 50s and hit the right side of his head on a container. The patient's family decided to not pursue further workup. He will follow up with his primary care physician for further referral for neural cognitive disorder. Tamsulosin added for urinary retention. Adverse effects and risk of benefits of medications discussed. Family is amenable and understanding with the plan. The patient was full code during his admission. He is discharged in stable condition to permanent placement in long-term on 10/04/2023. Time Spent with Patient Time attestation: Total time spent providing and/or coordinating discharge services: Exam Const: General: comfortable and no acute distress Other: A and O x 1 Resp: Effort & Inspection: normal respiratory effort Auscultation: clear to auscultation bilaterally Cardio: Rate: regular rate Rhythm: regular rhythm GI: GI Palp: Yes Soft to palpation and No Tenderness to palpation present (GI) Extrem: General: no edema DS: Data Data Completed and Pending Labs on day of discharge: Labs from last 24 hours 09/30/23 09/30/23 09/28/23 16:21 15:55 00:31 VBG pH 7.432 H* VBG pCO2 33.4 L VBG pO2 47.1 H VBG HCO3 21.8 L FiO2 21 Urine Color Yellow Urine Appearance Clear Urine pH 6.5 Ur Specific Fleming 1.010 Urine Protein Negative Urine Glucose (UA) Negative Urine Ketones Negative Ur Blood (Man) Negative Urine Nitrate Negative Urine Bilirubin Negative Urine Urobilinogen 1.0 Leukocyte Esterase Rfl 2+ H Urine RBC 3-5 H Urine WBC 6-10 H Ur Squamous Epith Cells None seen Urine Bacteria None seen Urine Casts 0-2 Influenza A (RT-PCR) Negative Influenza B (RT-PCR) Negative RSV (RT-PCR) Negative SARS-CoV-2 RNA (RT-PCR) Negative Discharge Plan Discharge Attending physician on discharge: Tisha Paredes Discharging Clinician: Tisha Paredes Patient Disposition: [facility] Activity: december shower Diet: heart healthy Patient Instructions: Dementia (GEN) Stand Alone Forms: General Discharge Information Follow-up/Referrals: Bridgette,MD Inder [P
[2023-10-04 15:50] LABS: SARS-CoV-2 RNA PCR Negative (Negative)
[2023-10-04 19:50] VITALS: BP 121/72; PULSE 100; RESP 20; TEMP 36.4; O2SAT 98
[2023-10-04] MEDS: ATORVASTATIN 20 MG TABLET PO (19:56)
[2023-10-04] MEDS: LORATADINE 10 MG TABLET PO (19:56)
[2023-10-04] MEDS: rOPINIRole HCL 1 MG TABLET 4 MG PO (19:57)
[2023-10-04] MEDS: ACETAMINOPHEN 325 MG TABLET 650 MG PO (20:02)
== END 2023-10-04 23:45 | DRG 948 ==
LOC: ANHED 15:43 → ANH3MEDSUR 17:22
PROVIDERS: Nurse Practitioner Acute Care; Admitting Provider Hospitalist; Emergency Provider Family Medicine; PCP Internal Medicine; Visit Provider General Practice
DX: R41.82 Altered mental status, unspecified (principal); N39.0 Urinary tract infection, site not specified; E87.1 Hypo-osmolality and hyponatremia; J44.9 Chronic obstructive pulmonary disease, unspecified; I11.9 Hypertensive heart disease without heart failure; I35.0 Nonrheumatic aortic (valve) stenosis; E78.5 Hyperlipidemia, unspecified; E03.9 Hypothyroidism, unspecified; R33.9 Retention of urine, unspecified; K21.9 Gastro-esophageal reflux disease without esophagitis; M25.552 Pain in left hip; S72.92XS Unspecified fracture of left femur, sequela; H81.10 Benign paroxysmal vertigo, unspecified ear; Z20.822 Contact with and (suspected) exposure to COVID-19; Z96.611 Presence of right artificial shoulder joint; Z96.652 Presence of left artificial knee joint; Z11.52 Encounter for screening for COVID-19; Z87.891 Personal history of nicotine dependence; Z94.7 Corneal transplant status; Z85.51 Personal history of malignant neoplasm of bladder
CPT/HCPCS: 36415; 70450; 70553; 72110; 73502; 73564; 80053; 81001; 82607; 82803; 83735; 84145; 84443; 85025; 85610; 87086; 87635; 87637; 96365; 96366; 96372; 96375; 96376; 97110; 97116; 97161; 97166; 97530; 97535; 99285; A9270; A9577; G0378; J0696; J1200; J1650; J2060; J7030

== ENCOUNTER 2024-08-24 11:32 | Outpatient (CLI) | payer MEDICARE, SELFPAY ==
[2024-08-24 11:56] LABS: Basophils Percent Auto 0.2 % (0.2-1.2); Eosinophils Percent Auto 0.2 % (0-4.4); Hematocrit 47.3 % (42.0-52.0); Immature Granulocyte Absolute 0.19 K/mm3 (0.00-0.031); Immature Granulocyte Percent A 0.8 % (0-0.5); Lymphocytes Percent Auto 44.3 % (18.3-44.2); Mean Corpuscular HGB Conc 33.8 g/dl (32-36); Mean Corpuscular Hemoglobin 33.1 pg (26-34); Mean Corpuscular Volume 97.9 fl (80-100); Mean Platelet Volume 8.1 fl (7.4-10.4); Monocytes Percent Auto 4.2 % (2.6-8.5); Neutrophils Absolute Auto 12.1 K/mm3 (1.3-6.7); Neutrophils Percent Auto 50.3 % (45.5-73.1); Platelet Count Result 160 k/mm3 (150-375); Red Blood Count 4.83 M/mm3 (4.6-6.20); Red Cell Distribution Width 12.2 % (11.5-14.5); White Blood Count 23.9 K/mm3 (4.5-10.0)
[2024-08-24 12:01] LABS: Atypical Lymphocytes Present; Platelet Estimate Adequate (Adequate); Schistocytes None Seen
[2024-08-24 16:32] LABS: Alanine Aminotransferase 40 U/L (6-50); Albumin Level 3.9 g/dL (3.5-5.1); Alkaline Phosphatase 83 U/L (38-126); Anion Gap -1 mmol/L (4-12); Aspartate Amino Transferase 32 U/L (17-59); Bilirubin,Total 0.7 mg/dL (0.2-1.3); Blood Urea Nitrogen 15 mg/dL (9-20); Calcium 8.6 mg/dL (8.4-10.2); Carbon Dioxide 37 mmol/L (22-30); Chloride 93 mmol/L (98-107); Estimated Glomerular Filt Rate > 60; Glucose 139 mg/dL (65-110); Potassium 4.3 mmol/L (3.4-5.0); Sodium 129 mmol/L (137-145)
== END 2024-08-24 11:33 | disposition home or self-care (01) ==
LOC: ANHLAB 11:33
PROVIDERS: Internal Medicine Medical Oncology; PCP Family Medicine; Visit Provider Internal Medicine Hematology & Oncology
DX: C91.10 Chronic lymphocytic leukemia of B-cell type not having achieved remission (principal)
CPT/HCPCS: 36415; 80053; 84155; 84165; 85025